=== PATIENT | male | born 1950 | race Caucasian/White ===

== ENCOUNTER 2017-03-03 18:25 | Emergency (ER) | payer MEDICARE ==
[~2017-03-03] VITALS: Ht 165.1 cm; Wt 54.4 kg
--- NOTE | 2017-03-03 23:54 | Diagnostic Imaging Report ---
ELBOW RIGHT COMPLETE Comparison: None Clinical history: Status post fall, pain Findings: Suboptimal lateral view without evidence of effusion. No acute fracture or dislocation. Impression: No acute bony abnormality Signed by: Dr Jaquelin Gomez MD on 03/03/2017 11:51 PM
--- NOTE | 2017-03-03 23:57 | Diagnostic Imaging Report ---
History: Fall, pain. Hematoma right side of the forehead. Comparison studies:None Technique: Axial images were obtained from the brain and cervical spine. Coronal and sagittal images reconstructed from the axial data. Intravenous contrast: None Findings: Head CT: Scalp/skull: No abnormalities. Extra-axial spaces: No masses. No fluid collections. Brain sulci: Mildly prominent. Ventricles: Mild compensatory dilatation. No hydrocephalus. Parenchyma: Few hypodensities in the supratentorial white matter are small vessel ischemic changes. Small chronic lacunar infarct at the right subinsular region. No masses, hemorrhage, acute or chronic cortical vascular insults. Sellar/suprasellar region: No abnormalities. Craniocervical junction: Patent foramen magnum. No Chiari one malformation. Incidental findings: Atherosclerotic calcifications in the carotid siphons Cervical spine CT: Fractures: None. Soft tissues: No gross abnormalities. Atlantoaxial articulation: Degenerative changes without an acute abnormality. Alignment: Reversal of the cervical spine lordosis centered at C3-4-5. No scoliosis. Cervicomedullary junction: No abnormalities. Patent foramen magnum. Vertebrae: No infection or neoplasm. Degenerative changes: Facet hypertrophy and uncinate process hypertrophy results in mild left foraminal narrowing at C2-3, moderate left foraminal narrowing at C3-4, mild right and moderate left foraminal narrowing at C4-5, moderate bilateral foraminal narrowing at C5-6, mild left foraminal narrowing at C6-7. Posterior disc osteophyte complexes results in mild canal stenosis at C4-5 and C5-6. Incidental findings: Atherosclerotic calcifications of the carotids bulbs. Emphysematous changes of both lung apices Impression: Head CT: 1. No acute intracranial abnormality. 2. Minimal chronic microvascular ischemic changes of the matter. Cervical spine CT: 1. No acute abnormalities. Degenerative changes as described above. 2. Cannot exclude ligament, spinal cord and or vascular abnormalities on the basis of this examination. Signed by: DR Harsh Ruiz M.D. on 03/03/2017 11:54 PM
== END 2017-03-04 01:13 | disposition home or self-care (01) ==
LOC: ER 18:25
DX: S00.83XA Contusion of other part of head, initial encounter (principal); M54.2 Cervicalgia; S50.311A Abrasion of right elbow, initial encounter; W18.39XA Other fall on same level, initial encounter; Y92.128 Other place in nursing home as the place of occurrence of the external cause; I10 Essential (primary) hypertension; J44.9 Chronic obstructive pulmonary disease, unspecified; B19.20 Unspecified viral hepatitis C without hepatic coma; F41.9 Anxiety disorder, unspecified; F32.9 Major depressive disorder, single episode, unspecified
CPT/HCPCS: 70450; 72125; 99284

== ENCOUNTER 2018-09-08 06:25 | Inpatient (IN) | payer MEDICARE ==
[~2018-09-08] VITALS: Ht 165.1 cm; Wt 54.4 kg
[2018-09-08] VITALS (15 sets, daily range): BP systolic 90–139; BP diastolic 52–94
[2018-09-08] MEDS ORDERED: SODIUM CHLORIDE 0.9% 1000ML 1,000 ML IV STA (06:28)
[2018-09-08] MEDS ORDERED: CEFEPIME 1GM/NS 0.9% 50 ML 50 ML IV STA (06:28)
[2018-09-08] MEDS ORDERED: VANCOMYCIN 1GM/NS 250 ML 250 ML IV STA (06:28)
--- OUTSIDE RECORDS SUMMARY | 2018-09-08 06:33 | XMS REPORT ---
Author Author Yoshi Fernandez [facility] eClinicalWorks Address Unknown Phone Unavailable Care Team Providers Care Boarder Hand Name Role Phone Yoshi Fernandez CP Unavailable Allergies, Adverse Reactions, Alerts Substance Reaction Event Type NSAID rash Drug Allergy Encounters Encounter Location Date Follow-up for mutiple problems Yoshi Fernandez MD May 20, 2015 Problems Problem Type Condition ICD-9 Code Onset Dates Condition Status Problem Chronic pain G89.29 Active Problem HTN (hypertension) I10 Active Problem Depression with anxiety F41.8 Active Problem Peripheral neuropathy G62.9 Active Problem Foot drop M21.379 Active Problem Chronic hypoxemic respiratory failure J96.11 Active Problem Respiratory failure J96.90 Active Problem COPD (chronic obstructive pulmonary disease) J44.9 Active Problem Hepatitis C carrier Z22.52 Active Problem History of tracheostomy Z98.89 Active Assessment Chronic pain G89.29 Active Assessment COPD (chronic obstructive pulmonary disease) J44.9 Active Assessment History of tracheostomy Z98.89 Active Assessment Chronic hypoxemic respiratory failure J96.11 Active Assessment Peripheral neuropathy G62.9 Active Problem Pulmonary embolism I26.99 Active Medications Medication Code System Code Instructions Start Date End Date Status Dosage Mucinex [facility] [address]-68 180 mg by mouth twice a day (bid) Active [address] [facility] [address]-77 20 mg by mouth once a day Active 1/[address] [facility] [address]-34 20 mg by mouth Once a day for edema. Active [address] [facility] [address]-79 10 MG Orally daily Mar 12, 2015 Active [address] [facility] [address] Orally Active Unknown DiphenhydrAMINE HCl [facility] [address]-84 25 MG Orally every 6 hrs Active 1 tablet as needed DuoNeb [facility] [address]-90 0.5-2.5 (3) MG/3ML Inhalation Four times a day Active 3 [address]er[address] S[address] HFA [facility] [address]-75 108 (90 Base) MCG/ACT Inhalation every 4 hrs Active 2 puffs as needed Lactulose [facility] [address]-18 10 GM/15ML Orally once a day Active [address] [facility] [address]-89 750 MG Orally Once a day Apr 12, 2015 Active 1 tablet Trypsin-Ailey Oil-[place]ley Balsam [facility] [address]-10 Externally once a day Active 1 application to affected area Psyllium Husk [facility] [address]-77 by mouth with every meal Active one packet Dulera [facility] [address]-41 200-5 MCG/ACT Inhalation Twice a day May 20, 2015 Active [address] [facility] [address]-15 1 % Externally Twice a day Active 1 application to affected area Tiotropium [place] Monohydrate [facility] [address]-21 18 MCG by mouth Once a day with meals for constipation. Active [address] [facility] [address]-92 20 mg by mouth Once a day Active [address] [facility] [address]-03 300 MG by mouth once at bedtime Active [address] [facility] [address]-46 100 UNIT/ML Subcutaneous Active Unknown Gabapentin [facility] [address]-37 600 MG by mouth every 8 hours Active [address] [facility] [address]-60 100 mg by mouth Once at bedtime. Active [address] [facility] [address]-91 5 MG by mouth twice a day (bid) Active 1 tablet Hydrocodone-Acetaminophen [facility] [address]-48 10-325 MG Orally every 6 hrs Active 1 tablet as needed Symbicort [facility] [address]-84 160-4.5 MCG/ACT Inhalation Twice a day Apr 12, 2015 Active [address] [facility] [address]-54 1 MG by mouth three times a day (tid) as needed (prn) Active [address] [facility] [address]-55 2.5 % Externally Twice a day May 20, 2015 September 17, 2015 Active 1 drop to affected area Mupirocin [facility] [address]-92 2 % Externally once a day Active 1 application to affected area Ondansetron HCl [facility] [address]-55 4 mg by mouth every 4 hours for nausea Active 1 tablet Docusate Sodium [facility] [address]-55 50 MG/15ML Orally Once a day Active 15 ml as needed Social History Social History Element Qualifiers Date Reported Do you take aspirin or a blood thinner drug? . YES,Harini Gutierrez 03/12/2015 2:25:18 PM > May 20, 2015 Tobacco Use: . Are you a: former smoker, When did you quit? 12/05/2014, For how many years have you smoked? more than 6 years May 20, 2015 Marital Status: . MarriedHarini Gutierrez 03/12/2015 2:25:23 PM > May 20, 2015 Caffeine intake? . Status: Yes, What type: Coffee, Tea, Soft Drinks May 20, 2015 Do you exercise? . Answer: No May 20, 2015 Family history Qualifier Description Comment Date Reported Maternal Grandmother Comment not available May 20, 2015 Paternal Grandmother Comment not available May 20, 2015 Siblings Comment not available May 20, 2015 Maternal Grandfather Comment not available May 20, 2015 Father high blood pressure, asthma May 20, 2015 Mother high blood pressure, asthma May 20, 2015 Paternal Grandfather Comment not available May 20, 2015 Other: Comment not available May 20, 2015 Vital Signs Date/Time: May 20, 2015 Weight 135.8 lbs Height 65 in Temperature 98.5 F Cardiac Monitoring Heart Rate 107 /min Blood Pressure Diastolic 79 mm Hg Blood Pressure Systolic 131 mm Hg Respiratory Rate 18 /min Summary Purpose eClinicalWorks Submission
--- OUTSIDE RECORDS SUMMARY | 2018-09-08 06:33 | XMS REPORT | Summary of Care ---
Author Author [facility] Organization [facility] Address Unknown Phone Unavailable Encounter [facility](JOYCE) [id number] Date(s): 02/05/17 - 02/15/17 [facility] [address] [place] [address]- Discharge Disposition: [facility] Care Facility Attending Physician: Eunice Castillo MD Admitting Physician: Eunice Castillo MD Vital Signs 1 2 3 Most recent to oldest [Reference Range]: 177.8 cm (02/06/17 11:03 AM) 177.8 cm (02/06/17 9:25 AM) 177.8 cm (02/06/17 7:02 AM) Height 45.1 kg (02/12/17 5:18 AM) 43.455 kg (02/11/17 5:00 AM) 46.591 kg (02/10/17 5:00 AM) Current Weight 98.3 DegF (02/15/17 4:03 PM) 98.8 DegF (02/15/17 11:52 AM) 97.7 DegF (02/15/17 7:42 AM) Temperature Oral [96.4-99.1 DegF] 118/69 mmHg (02/15/17 4:03 PM) 120/64 mmHg (02/15/17 11:52 AM) 93/58 mmHg (02/15/17 7:42 AM) Blood Pressure [90-140/60-90 mmHg] 20 BRMIN (02/15/17 4:03 PM) 18 BRMIN (02/15/17 11:52 AM) 16 BRMIN (02/15/17 8:56 AM) Respiratory Rate [14-20 BRMIN] 107 bpm *HI* (02/15/17 4:03 PM) 83 bpm (02/15/17 11:52 AM) 79 bpm (02/15/17 7:42 AM) Peripheral Pulse Rate [60-100 bpm] 45 kg (02/05/17 8:14 PM) Weight 14.23 m2 (02/05/17 8:14 PM) Body Mass Index Problem List Condition Effective Dates Status Health Status Informant Anxiety(Confirmed) Resolved Asthma(Confirmed) Active COPD(Confirmed) Active Hepatitis Active C(Confirmed) HLD Active (hyperlipidemia)(Con firmed) Hypertension(Confirm Active ed) Pneumonia(Confirmed) Active Respiratory Resolved distress(Confirmed) Severe Active Chronic ; protein-calorie malnutrition(Confirm ed) Smoker(Confirmed) Active Allergies, Adverse Reactions, Alerts Substance Reaction Severity Status Vioxx Active NSAIDs Active chlorhexidine containing Active compounds Medications acetaminophen 650 mg, 2 tab, Route: PO, Drug form: TAB, Q4H, Dosing Weight 45, kg, PRN For Tem p > 100.4 F, Start date: 02/05/17 22:21:00 [employer], Duration: 30 day, Stop date: 03/07/17 22:20:00 [employer] Notes: Do not exceed 4 gm/day. (Same as: Tylenol) Start Date: 02/05/17 Stop Date: 02/15/17 Status: Discontinued albuterol 0.083% inhalation solution 2.5 mg, 3.01 mL, Route: NEB, Drug form: SOLN, RTID, Dosing Weight 45, kg, Start date: 02/07/17 20:00:00 [employer], Duration: 30 day, Stop date: 03/09/17 14:00:00 [employer] Notes: SEE RT DOCUMENTATION (Same as: Ania) Start Date: 02/07/17 Stop Date: 02/15/17 Status: Discontinued albuterol 0.083% inhalation solution 2.5 mg=3 mL, NEB, TID, 0 Refill(s) Start Date: 02/05/17 Status: Ordered albuterol-ipratropium 2.5-0.5 mg inhalation solution 3 ml, Route: NEB, Drug Form: SOLN, Dosing Weight 45, kg, RQ4H, PRN Wheezing, Sta rt date: 02/05/17 22:21:00 [employer], Duration: 30 day, Stop date: 03/07/17 22:20:[address] Notes: (Same as: Huma) Start Date: 02/05/17 Stop Date: 02/15/17 Status: Discontinued albuterol-ipratropium 2.5-0.5 mg inhalation solution 3 mL, Route: NEB, Dosing Weight 45, kg, ONCE, STAT, Start date: 02/05/17 20:34:0 0 [employer], Stop date: 02/05/17 20:34:00 [employer] Start Date: 02/05/17 Stop Date: 02/05/17 Status: Completed amLODIPine 10 mg, 2 tab, Route: PO, Drug form: TAB, Daily, Dosing Weight 45, kg, Start date : 02/08/17 9:00:00 [employer], Duration: 30 day, Stop date: 03/10/17 8:59:00 [employer] Notes: (Same as: Norvasc) Start Date: 02/08/17 Stop Date: 02/15/17 Status: Discontinued amLODIPine 10 mg oral tablet 10 mg=1 tab, PO, Daily, 0 Refill(s) Start Date: 02/05/17 Status: Ordered Ativan 0.25 mg, 0.5 tab, Route: PO, Drug form: TAB, BID, Dosing Weight 45, kg, PRN Anxi ety, Start date: 02/11/17 12:22:00 [employer], Duration: 30 day, Stop date: 03/13/17 12 :21:00 [employer] Notes: (Same as: Ativan) Start Date: 02/11/17 Stop Date: 02/15/17 Status: Discontinued azithromycin 500 mg, 2 tab, Route: PO, Drug form: TAB, [id number], Dosing Weight 45, kg, Start d ate: 02/05/17 23:00:00 [employer], Duration: 5 day, Stop date: 02/10/17 22:59:00 [employer], A BX Indication: Non-PNA Respiratory Tract Infection Notes: Take 1 hour before or 2 hours after meals.(Same As: Zithromax) Start Date: 02/05/17 Stop Date: 02/10/17 Status: Completed Breo Ellipta 100 mcg-25 mcg inhalation powder 1 puff, Route: INHALATION, Drug Form: PWDR, Dosing Weight 45, kg, Daily, Start d ate: 02/08/17 9:00:00 [employer], Duration: 30 day, Stop date: 03/10/17 8:59:00 [employer] Start Date: 02/08/17 Stop Date: 02/08/17 Status: Discontinued Breo Ellipta 100 mcg-25 mcg inhalation powder 1 puff, INHALATION, Daily, 0 Refill(s) Start Date: 02/05/17 Status: Ordered budesonide 0.5 mg, 2 mL, Route: NEB, Drug form: SUSP, RBID, Dosing Weight 45, kg, Start chantel e: 02/05/17 22:36:00 [employer], Duration: 30 day, Stop date: 03/07/17 22:35:00 [employer] Notes: (Same As: Pulmicort) Start Date: 02/05/17 Stop Date: 02/15/17 Status: Discontinued budesonide 0.5 mg/2 mL inhalation suspension 0.5 mg=2 mL, NEB, RBID, 0 Refill(s) Start Date: 02/15/17 Status: Ordered calcium carbonate 500 mg (200 mg elemental calcium) oral tablet 1,000 mg, 2 tab, Route: PO, Drug form: CHEWTAB, PRN, Dosing Weight 45, kg, PRN A bnormal Lab Result, FOR ICU USE ONLY, Start date: 02/05/17 22:21:00 [employer], Duratio n: 30 day, Stop date: 03/07/17 22:20:00 [employer] Notes: (Same As: Tums)Calcium Carbonate 500 kf=730 mg elemental calcium Dose=_ mg calcium carbonate ( mg elemental calcium) Start Date: 02/05/17 Stop Date: 02/09/17 Status: Discontinued calcium carbonate 500 mg (200 mg elemental calcium) oral tablet 500 mg, 1 tab, Route: PO, Drug form: CHEWTAB, PRN, Dosing Weight 45, kg, PRN Abn ormal Lab Result, FOR ICU USE ONLY, Start date: 02/05/17 22:21:00 [employer], Duration: 30 day, Stop date: 03/07/17 22:20:00 [employer] Notes: (Same As: Tums)Calcium Carbonate 500 ob=650 mg elemental calcium Dose=_ mg calcium carbonate ( mg elemental calcium) Start Date: 02/05/17 Stop Date: 02/09/17 Status: Discontinued calcium gluconate 1 gm, 50 mL, Route: IVPB, Drug form: INJ, PRN, Dosing Weight 45, kg, PRN Abnorma l Lab Result, Start date: 02/05/17 22:21:00 [employer], Duration: 30 day, Stop date: 22:20:00 [employer], FOR ICU USE ONLY Notes: WASTE: F/P - Sink; E - Municipal Trash Bin Start Date: 02/05/17 Stop Date: 02/09/17 Status: Discontinued cefepime + sterile water 10 mL 1 gm, Route: IV, ONCE, Dosing Weight 45, kg, (CrCl >/=50 ml/min), Start date: 02/05/17 21:57:00 [employer], Stop date: 02/05/17 21:57:00 [employer], ABX Indication: Pneumonia Notes: (Same As: Maxipime) MEDICATION WASTE Product Size: 1000 mgProduc t Wasted: ___ mg Start Date: 02/05/17 Stop Date: 02/06/17 Status: Completed cefTRIAXone + sterile water 10 mL 1 gm, Route: IV, [id number], Dosing Weight 45, kg, Start date: 02/08/17 20:00:00 CS T, Duration: 30 day, Stop date: 03/10/17 19:59:00 [employer], ABX Indication: Pneumonia Notes: (Same As: Rocephin).Use with 100 mL NS and infuse over 30 min MEDICA TION WASTE Product Size: 1000 mgProduct Wasted: ___ mg Start Date: 02/08/17 Stop Date: 02/15/17 Status: Discontinued donepezil 5 mg, 1 tab, Route: PO, Drug form: TAB, Bedtime, Dosing Weight 45, kg, Start chantel e: 02/07/17 21:00:00 [employer], Duration: 30 day, Stop date: 03/09/17 20:59:00 [employer] Notes: (Same as: Aricept) Start Date: 02/07/17 Stop Date: 02/15/17 Status: Discontinued donepezil 5 mg oral tablet 5 mg=1 tab, PO, Bedtime, 0 Refill(s) Start Date: 02/05/17 Status: Ordered DuoNeb inhalation solution 9 mL, Route: NEB, Drug Form: SOLN, Dosing Weight 45, kg, ONCE, PRN Respiratory P rotocol, Start date: 02/05/17 21:15:00 [employer] Notes: (Same as: Duoneb) Start Date: 02/05/17 Stop Date: 02/05/17 Status: Completed enoxaparin 40 mg, 0.4 mL, Route: SUB-Q, Drug form: INJ, [id number], Dosing Weight 45, kg, Sta rt date: 02/05/17 23:00:00 [employer], Duration: 30 day, Stop date: 03/07/17 22:59:[address] Notes: (Same as: Lovenox) Start Date: 02/05/17 Stop Date: 02/15/17 Status: Discontinued famotidine 20 mg, 2 mL, Route: IVP, Drug form: INJ, Daily, Dosing Weight 45, kg, Start date : 02/06/17 9:00:00 [employer], Duration: 30 day, Stop date: 03/07/17 9:00:00 [employer] Notes: (Same as: Pepcid)Can be dilute in 5-10cc NS IVP: Slow IV push over at le ast 2 minutes. Start Date: 02/06/17 Stop Date: 02/08/17 Status: Discontinued famotidine 20 mg oral tablet 20 mg, 1 tab, Route: PO, Drug form: TAB, Daily, Dosing Weight 45, kg, Start date : 02/09/17 9:00:00 [employer], Duration: 30 day, Stop date: 03/11/17 8:59:00 [employer] Notes: (Same as: Pepcid) Start Date: 02/09/17 Stop Date: 02/15/17 Status: Discontinued famotidine 20 mg oral tablet 20 mg=1 tab, PO, Daily, 0 Refill(s) Start Date: 02/15/17 Status: Ordered fentaNYL 1250 microgram in NS 250 mL (Titrate.) IV 1,250 microgram 1,250 microgram, 250 mL, Rate: Titrate, Start Dose: 50 microgram/hr, Titration: 25 microgram/hour every 15 minutes, Goal(s): rass -2, Max Dose: 300 microgram/hr , Route: IV, Dosing Weight 45 kg, Total Volume: 250, Start date: 02/05/17 22:41: 00 [employer], Dur... Notes: Concentration: 5 microgram / ml Start Date: 02/05/17 Stop Date: 02/10/17 Status: Discontinued Lactated Ringers (Bolus) IV 1,000 mL, 1,000 ml/hr, Infuse Over: 1 hr, Route: IV, 1,000, Drug form: INJ, ONCE , Priority: STAT, Dosing Weight 45 kg, Start date: 02/06/17 0:24:00 [employer], Stop da te: 02/06/17 0:24:00 [employer] Start Date: 02/06/17 Stop Date: 02/06/17 Status: Completed Lactated Ringers (Bolus) IV 1,000 mL, 1,000 ml/hr, Infuse Over: 1 hr, Route: IV, 1,000, Drug form: INJ, ONCE , Priority: STAT, Dosing Weight 45 kg, Start date: 02/06/17 2:27:00 [employer], Stop da te: 02/06/17 2:27:00 [employer] Start Date: 02/06/17 Stop Date: 02/06/17 Status: Completed LORazepam 1 mg, 1 tab, Route: PO, Drug form: TAB, BID, Dosing Weight 45, kg, Start date: 04/09/16 17:42:00 [employer], Duration: 30 day, Stop date: 03/09/17 20:00:00 [employer] Notes: (Same as: Ativan) Start Date: 02/07/17 Stop Date: 02/15/17 Status: Discontinued LORazepam 2 mg oral tablet 2 mg=1 tab, PO, BID, 0 Refill(s) Start Date: 02/05/17 Status: Ordered losartan 50 mg, 1 tab, Route: PO, Drug form: TAB, Daily, Dosing Weight 45, kg, Start date : 02/08/17 9:00:00 [employer], Duration: 30 day, Stop date: 03/10/17 8:59:00 [employer] Notes: (Same as: Cozaar) Start Date: 02/08/17 Stop Date: 02/15/17 Status: Discontinued losartan 50 mg oral tablet 50 mg=1 tab, PO, Daily, 0 Refill(s) Start Date: 02/05/17 Status: Ordered magnesium oxide 800 mg, 2 tab, Route: PO, Drug form: TAB, PRN, Dosing Weight 45, kg, PRN Abnorma l Lab Result, FOR ICU USE ONLY, Start date: 02/05/17 22:21:00 [employer], Duration: 30 day, Stop date: 03/07/17 22:20:00 [employer] Notes: (Same as: Mag-Ox 400)Magnesium oxide [id number] elemental magnesiumDose= ____mg magnesium oxide (___mg elemental magnesium) Start Date: 02/05/17 Stop Date: 02/09/17 Status: Discontinued magnesium sulfate 2 gm, Route: IVPB, Drug form: INJ, ONCE, Dosing Weight 45, kg, Total dose=2 gm, Start date: 02/05/17 21:14:00 [employer], Stop date: 02/05/17 21:14:00 [employer]ERSON Start Date: 02/05/17 Stop Date: 02/05/17 Status: Completed magnesium sulfate 2 gm, 50 mL, Route: IVPB, Drug form: INJ, PRN, Dosing Weight 45, kg, PRN Abnorma l Lab Result, Start date: 02/05/17 22:21:00 [employer], Duration: 30 day, Stop date: 22:20:00 [employer], FOR ICU USE ONLY Notes: WASTE: F/P - Sink; E - Municipal Trash Bin Start Date: 02/05/17 Stop Date: 02/09/17 Status: Discontinued mupirocin topical 1 appl, Route: NASAL, Q12H, Drug form: OINT, Start date: 02/06/17 9:00:00 [employer], D uration: 5 day, Stop date: 02/11/17 8:59:00 [employer], MRSA Decolonization Start Date: 02/06/17 Stop Date: 02/11/17 Status: Completed Soudan 10/325 oral tablet 1 tab, Route: PO, Drug Form: TAB, Dosing Weight 45, kg, TID, Start date: 7 17:42:00 [employer], Duration: 30 day, Stop date: 03/09/17 22:00:00 [employer] Notes: Do not exceed 4gm/day of acetaminophen. (Same as: Soudan 325/10) Start Date: 02/07/17 Stop Date: 02/15/17 Status: Discontinued Soudan 10/325 oral tablet 1 tab, PO, TID, 0 Refill(s) Start Date: 02/05/17 Status: Ordered norepinephrine 8 mg in 250 mL (Titrate.) IV 8 mg 8 mg, 250 mL, Rate: Titrate, Start Dose: 5 microgram/min, Titration: 2 microgram /min every 2-5 minutes, Goal(s): MAP >=60 mmHg, Max Dose: 70 microgram/min, Route: IV, Dosing Weight 45 kg, Total Volume: 250, Start date: 02/06/17 4:12:00 [employer], Duration:... Notes: Same as: Levophed. Administer by either central venous catheter or periph erally-inserted central catheter (PICC) line.Concentration: 0.032 mg / mL Start Date: 02/06/17 Stop Date: 02/10/17 Status: Discontinued nystatin topical 100,000 units/g powder 1 appl, Route: TOP, PRN, Drug form: PWDR, PRN For Fungal Prophylaxis, Start date : 02/05/17 22:21:00 [employer], Duration: 30 day, Stop date: 03/07/17 22:20:00 [employer] Notes: (Same as:Mycostatin, Nilstat) For external use only. Start Date: 02/05/17 Stop Date: 02/15/17 Status: Discontinued ocular lubricant 1 appl, Route: BOTH EYES, Q6H, Drug form: OINT, Start date: 02/06/17 0:00:00 [employer] , Duration: 30 day, Stop date: 03/07/17 23:59:00 [employer] Notes: (Same as: Lacri-Lube, Duratears Naturale, Artificial Tears, and Tears Aga in ) Start Date: 02/06/17 Stop Date: 02/06/17 Status: Discontinued Please have patient bring home med" Ellipta 100 mcg/25 mcg Please have patient bring home med" Ellipta 100 mcg/25 mcg, 1, Drug form: MISC, Route: MISC, Daily, 02/08/17 9:00:00 [employer], Duration: 30 day, Stop date: 03/09/17 9:00:00 [employer] Start Date: 02/08/17 Stop Date: 02/08/17 Status: Discontinued potassium chloride 20 mEq, 100 mL, Route: IVPB, Drug form: INJ, PRN, Dosing Weight 45, kg, PRN Abno rmal Lab Result, Via central line, Start date: 02/05/17 22:21:00 [employer], Duration: 30 day, Stop date: 03/07/17 22:20:00 [employer], FOR ICU USE ONLY Notes: (Same as: KCL) Infuse no faster than 10 mEq/hr if given peripherally. Start Date: 02/05/17 Stop Date: 02/09/17 Status: Discontinued potassium chloride 10 mEq, 100 mL, Route: IVPB, Drug form: INJ, PRN, Dosing Weight 45, kg, PRN Abno rmal Lab Result, Via peripheral line, Start date: 02/05/17 22:21:00 [employer], Duratio n: 30 day, Stop date: 03/07/17 22:20:00 [employer], FOR ICU USE ONLY Notes: Infuse at a rate of 10 mEq/hr.(Same as: KCL) Start Date: 02/05/17 Stop Date: 02/09/17 Status: Discontinued potassium chloride 20 mEq, 1 tab, Route: PO, Drug form: ERTAB, PRN, Dosing Weight 45, kg, PRN Abnor mal Lab Result, Start date: 02/05/17 22:21:00 [employer], Duration: 30 day, Stop date: 03/07/17 22:20:00 [employer], FOR ICU USE ONLY Notes: (Same as: K-Dur 20)"Do Not Crush" With food and full glass of water Start Date: 02/05/17 Stop Date: 02/09/17 Status: Discontinued potassium chloride 20 mEq, 15 mL, Route: NJ, Drug form: LIQ, PRN, Dosing Weight 45, kg, PRN Abnorma l Lab Result, Start date: 02/05/17 22:21:00 [employer], Duration: 30 day, Stop date: 22:20:00 [employer], FOR ICU USE ONLY Notes: (Same as: Potassium Chloride) Start Date: 02/05/17 Stop Date: 02/09/17 Status: Discontinued potassium phosphate + Sodium Chloride 0.9% IV 250 mL 30 mmol, 10 mL, Route: IVPB, PRN, Dosing Weight 45, kg, PRN Abnormal Lab Result, Start date: 02/05/17 22:21:00 [employer], Duration: 30 day, Stop date: 03/07/17 22:20: 00 [employer], FOR ICU USE ONLY Notes: (Same as: K Phosphate.) 1 mMol phoshate has 1.47 mEq potassium Infuse o jesús 4 hours Start Date: 02/05/17 Stop Date: 02/09/17 Status: Discontinued potassium phosphate + Sodium Chloride 0.9% IV 250 mL 15 mmol, 5 mL, Route: IVPB, PRN, Dosing Weight 45, kg, PRN Abnormal Lab Result, Start date: 02/05/17 22:21:00 [employer], Duration: 30 day, Stop date: 03/07/17 22:20:0 0 [employer], FOR ICU USE ONLY Notes: (Same as: K Phosphate.) 1 mMol phoshate has 1.47 mEq potassium Infuse o jesús 4 hours Start Date: 02/05/17 Stop Date: 02/09/17 Status: Discontinued potassium phosphate + Sodium Chloride 0.9% IV 250 mL 45 mmol, 15 mL, Route: IVPB, PRN, Dosing Weight 45, kg, PRN Abnormal Lab Result, Start date: 02/05/17 22:21:00 [employer], Duration: 30 day, Stop date: 03/07/17 22:20: 00 [employer], FOR ICU USE ONLY Notes: (Same as: K Phosphate.) 1 mMol phoshate has 1.47 mEq potassium Infuse o jesús 4 hours Start Date: 02/05/17 Stop Date: 02/09/17 Status: Discontinued potassium phosphate-sodium phosphate 250 mg-280 mg-160 mg oral powder for recons titution 2 pkt, Route: PO, Drug Form: PDR/REC, Dosing Weight 45, kg, PRN, PRN Abnormal La b Result, FOR ICU USE ONLY, Start date: 02/05/17 22:21:00 [employer], Duration: 30 day, Stop date: 03/07/17 22:20:00 [employer] Notes: (Same as: Phos-NaK) Each 1.5 gm pkt has 250mg phosphorous. Mix w/2.5oz w ater and stir. Start Date: 02/05/17 Stop Date: 02/09/17 Status: Discontinued predniSONE 20 mg oral tablet 60 mg=3 tab, PO, Daily, Take 3 tablets for 60 mg dose, X 5 day, # 15 tab, 0 Refi ll(s), Pharmacy: [id number] Start Date: 02/15/17 Stop Date: 02/20/17 Status: Ordered predniSONE 20 mg oral tablet 10 mg=0.5 tab, PO, Daily, 0 Refill(s) Start Date: 02/05/17 Status: Ordered propofol 10 mg/mL (Titrate.) IV 1,000 mg 1,000 mg, 100 mL, Rate: Titrate, Start Dose: 5 microgram/kg/min, Titration: 5 mi crogram/kg/min every 15 minutes, Goal(s): RASS -1 to -2, Max Dose: 50 mcg/kg/min , Route: IV, Dosing Weight 45 kg, Total Volume: 100, Start date: 02/05/17 22:33: 00 [employer], Dur... Notes: If Diprivan - change bottle & tubing every 12 hrPer state nursing law propofol can only be given by a nurse if patient is intubated or being intubated (unless the nurse is a ELEVATOR TECHNICIAN). Same as: Diprivan Start Date: 02/05/17 Stop Date: 02/06/17 Status: Discontinued Remeron 15 mg, 1 tab, Route: PO, Drug form: TAB, Bedtime, Dosing Weight 45, kg, Start da te: 02/07/17 21:00:00 [employer], Duration: 30 day, Stop date: 03/09/17 20:59:00 [employer]ERSON Notes: (Same as:Remeron) Start Date: 02/07/17 Stop Date: 02/15/17 Status: Discontinued Remeron 15 mg oral tablet 15 mg=1 tab, PO, Bedtime, 0 Refill(s) Start Date: 02/05/17 Status: Ordered Saline Flush 0.9% 10 ml, Route: IVP, Drug Form: INJ, Dosing Weight 45, kg, PRN, PRN Line Flush, St art date: 02/05/17 22:21:00 [employer], Duration: 30 day, Stop date: 03/07/17 22:20:00 [employer]ERSON Notes: (Same as: BD Posiflush) Start Date: 02/05/17 Stop Date: 02/15/17 Status: Discontinued Saline Flush 0.9% 10 ml, Route: IVP, Drug Form: INJ, Dosing Weight 45, kg, Q12H, Start date: 02/06 9:00:00 [employer], Duration: 30 day, Stop date: 03/08/17 8:59:00 [employer] SAL[employer]ERSON Notes: (Same as: BD Posiflush) Start Date: 02/06/17 Stop Date: 02/15/17 Status: Discontinued Saline Flush 0.9% 10 mL, Route: IVP, Drug Form: INJ, Dosing Weight 45, kg, PRN, PRN Line Flush, St art date: 02/05/17 20:33:00 [employer], Duration: 30 day, Stop date: 03/07/17 20:32:00 [employer]ERSON Notes: (Same as: BD Posiflush) Start Date: 02/05/17 Stop Date: 02/09/17 Status: Discontinued sertraline 200 mg, 2 tab, Route: PO, Drug form: TAB, Daily, Dosing Weight 45, kg, Start chantel e: 02/08/17 9:00:00 [employer], Duration: 30 day, Stop date: 03/10/17 8:59:00 [employer]ERSON Notes: (Same as: Zoloft) Start Date: 02/08/17 Stop Date: 02/15/17 Status: Discontinued sertraline 100 mg oral tablet 200 mg=2 tab, PO, Daily, 0 Refill(s) Start Date: 02/05/17 Status: Ordered Sodium Chloride 0.9% (Bolus) IV 1,000 mL, 2,000 ml/hr, Infuse Over: 0.5 hr, Route: IV, 1,000, Drug form: INJ, ON CE, Priority: STAT, Dosing Weight 45 kg, Start date: 02/05/17 21:58:00 [employer], Stop date: 02/05/17 21:58:00 [employer]ERSON Start Date: 02/05/17 Stop Date: 02/06/17 Status: Completed Sodium Chloride 0.9% (Bolus) IV 1,000 mL, 1,000 ml/hr, Infuse Over: 1 hr, Route: IV, 1,000, Drug form: INJ, ONCE , Priority: STAT, Dosing Weight 45 kg, Start date: 02/06/17 2:49:00 [employer], Stop da te: 02/06/17 2:49:00 [employer] SAL[employer]ERSON Start Date: 02/06/17 Stop Date: 02/06/17 Status: Completed sodium phosphate + Dextrose 5% in Water IV 250 mL 15 mmol, 5 mL, Route: IVPB, PRN, Dosing Weight 45, kg, PRN Abnormal Lab Result, Start date: 02/05/17 22:21:00 [employer], Duration: 30 day, Stop date: 03/07/17 22:20:0 0 [employer]ERSON, FOR ICU USE ONLY Start Date: 02/05/17 Stop Date: 02/09/17 Status: Discontinued sodium phosphate + Dextrose 5% in Water IV 250 mL 45 mmol, 15 mL, Route: IVPB, PRN, Dosing Weight 45, kg, PRN Abnormal Lab Result, Start date: 02/05/17 22:21:00 [employer], Duration: 30 day, Stop date: 03/07/17 22:20: 00 [employer] PL[employer] SAL[employer]ERSON, FOR ICU USE ONLY Start Date: 02/05/17 Stop Date: 02/09/17 Status: Discontinued sodium phosphate + Dextrose 5% in Water IV 250 mL 30 mmol, 10 mL, Route: IVPB, PRN, Dosing Weight 45, kg, PRN Abnormal Lab Result, Start date: 02/05/17 22:21:00 [employer], Duration: 30 day, Stop date: 03/07/17 22:20: 00 [employer] SAL[employer]ERSON, FOR ICU USE ONLY Start Date: 02/05/17 Stop Date: 02/09/17 Status: Discontinued Solu-MEDROL 40 mg, 1 mL, Route: IVP, Drug form: INJ, Q12H, Dosing Weight 45, kg, Start date: 02/06/17 9:00:00 [employer], Duration: 30 day, Stop date: 03/08/17 8:59:00 [employer] SAL[employer]ERSON Notes: (Same as:Solu-MEDROL, A-Methapred) Start Date: 02/06/17 Stop Date: 02/15/17 Status: Discontinued Solu-MEDROL 125 mg, Route: IVP, ONCE, Dosing Weight 45, kg, Priority: STAT, Start date: 01/20 10/05 21:15:00 [employer], Stop date: 02/05/17 21:15:00 [employer] SAL[employer]ERSON Start Date: 02/05/17 Stop Date: 02/05/17 Status: Completed trazodone 300 mg, 6 tab, Route: PO, Drug form: TAB, Bedtime, Dosing Weight 45, kg, Start d ate: 02/07/17 21:00:00 [employer], Duration: 30 day, Stop date: 03/09/17 20:59:00 [employer] SAL[employer]ERSON Notes: (Same As: Desyrel) Start Date: 02/07/17 Stop Date: 02/15/17 Status: Discontinued trazodone 150 mg oral tablet 300 mg=2 tab, PO, Bedtime, 0 Refill(s) Start Date: 02/05/17 Status: Ordered Unasyn 3 gm, Route: IVPB, ONCE, Dosing Weight 45, kg, Start date: 02/05/17 21:56:00 [employer] , Stop date: 02/05/17 21:56:00 [employer] SAL[employer]ERSON Start Date: 02/05/17 Stop Date: 02/05/17 Status: Discontinued vancomycin + Sodium Chloride 0.9% IV 250 mL 1,000 mg, Route: IVPB, ONCE, Dosing Weight 45, kg, Start date: 02/05/17 21:57:00 [employer], Stop date: 02/05/17 21:57:00 [employer], ABX Indication: Pneumonia Notes: TIME CRITICAL MEDICATION(Same As: Vancocin)Infusion rate< 1000 mg: infuse over 1 [id number] - 1500 mg: infuse over 1.5 [id number] - 2000 mg: infuse over 2 hours> 2001 mg: infuse over 2.5 hours MEDICATION WASTE Product Size: 1000 mgProduct Wasted: ___ mg Start Date: 02/05/17 Stop Date: 02/06/17 Status: Completed Versed 50 mg in NS 50 mL (Titrate.) IV 50 mg 50 mg, 50 mL, Rate: Titrate, Start Dose: 1 mg/hr, Titration: Rebolus 1 mg IV and /or Titrate infusion by 1 mg/hour every 30 minutes, Goal(s): rass -2, Max Dose: 10 mg/hr, Route: IV, Dosing Weight 45 kg, Total Volume: 50, Start date: 02/05/17 22:42:00 C... Notes: (Same as: Versed) Start Date: 02/05/17 Stop Date: 02/10/17 Status: Discontinued Results ELECTROLYTES 1 2 3 Most recent to oldest [Reference Range]: 139 mEq/L (02/14/17 11:56 AM) 137 mEq/L (02/11/17 8:32 AM) 138 mEq/L (02/10/17 7:05 AM) Sodium Lvl [135-145 mEq/L] 4.4 mEq/L (02/14/17 11:56 AM) 4.4 mEq/L (02/11/17 8:32 AM) 4.4 mEq/L (02/10/17 7:05 AM) Potassium Lvl [3.5-5.1 mEq/L] 98 mEq/L (02/14/17 11:56 AM) 92 mEq/L *LOW* (02/11/17 8:32 AM) 93 mEq/L *LOW* (02/10/17 7:05 AM) Chloride Lvl [95-109 mEq/L] 34 mEq/L *HI* (02/14/17 11:56 AM) 39 mEq/L *HI* (02/11/17 8:32 AM) 38 mEq/L *HI* (02/10/17 7:05 AM) CO2 [24-32 mEq/L] 11.4 mEq/L (02/14/17 11:56 AM) 10.4 mEq/L (02/11/17 8:32 AM) 11.4 mEq/L (02/10/17 7:05 AM) AGAP [10.0-20.0 mEq/L] CHEM PANEL 1 2 3 Most recent to oldest [Reference Range]: 0.64 mg/dL (02/14/17 11:56 AM) 0.62 mg/dL (02/11/17 8:32 AM) 0.62 mg/dL (02/10/17 7:05 AM) Creatinine Lvl [0.50-1.40 mg/dL] 102 mL/min/1.73m2 1 *NA* (02/14/17 11:56 AM) 103 mL/min/1.73m2 2 *NA* (02/11/17 8:32 AM) 104 mL/min/1.73m2 3 *NA* (02/10/17 7:05 AM) eGFR 28 mg/dL *HI* (02/14/17 11:56 AM) 20 mg/dL (02/11/17 8:32 AM) 18 mg/dL (02/10/17 7:05 AM) BUN [7-22 mg/dL] 44 *HI* (02/14/17 11:56 AM) 36 *HI* (02/07/17 5:58 AM) 18 (02/05/17 8:43 PM) B/C Ratio [6-25] 113 mg/dL *HI* (02/14/17 11:56 AM) 96 mg/dL (02/11/17 8:32 AM) 102 mg/dL *HI* (02/10/17 7:05 AM) Glucose Lvl [70-99 mg/dL] 6.2 g/dL *LOW* (02/14/17 11:56 AM) 5.9 g/dL *LOW* (02/07/17 5:58 AM) 8.1 g/dL (02/05/17 8:43 PM) Total Protein [6.4-8.4 g/dL] 2.9 g/dL *LOW* (02/14/17 11:56 AM) 2.6 g/dL *LOW* (02/07/17 5:58 AM) 3.8 g/dL (02/05/17 8:43 PM) Albumin Lvl [3.5-5.0 g/dL] 3.3 g/dL (02/14/17 11:56 AM) 3.3 g/dL (02/07/17 5:58 AM) 4.3 g/dL *HI* (02/05/17 8:43 PM) Globulin [2.7-4.2 g/dL] 0.9 (02/14/17 11:56 AM) 0.8 (02/07/17 5:58 AM) 0.9 (02/05/17 8:43 PM) A/G Ratio [0.7-1.6] 8.5 mg/dL (02/14/17 11:56 AM) 9.2 mg/dL (02/11/17 8:32 AM) 9.3 mg/dL (02/10/17 7:05 AM) Calcium Lvl [8.5-10.5 mg/dL] 2.6 mg/dL (02/07/17 5:58 AM) 1.8 mg/dL *LOW* (02/06/17 8:38 AM) 2.4 mg/dL *LOW* (02/06/17 3:44 AM) Phosphorus [2.5-4.5 mg/dL] 2.1 mg/dL (02/07/17 5:58 AM) 2.4 mg/dL (02/06/17 8:38 AM) 2.5 mg/dL *HI* (02/06/17 3:44 AM) Magnesium Lvl [1.8-2.4 mg/dL] 39 unit/L (02/14/17 11:56 AM) 40 unit/L (02/07/17 5:58 AM) 58 unit/L (02/05/17 8:43 PM) ALT [0-65 unit/L] 15 unit/L (02/14/17 11:56 AM) 67 unit/L *HI* (02/07/17 5:58 AM) 48 unit/L *HI* (02/05/17 8:43 PM) AST [0-37 unit/L] 68 unit/L (02/14/17 11:56 AM) 58 unit/L (02/07/17 5:58 AM) 87 unit/L (02/05/17 8:43 PM) Alk Phos [39-136 unit/L] 0.5 mg/dL (02/14/17 11:56 AM) 0.3 mg/dL (02/07/17 5:58 AM) 0.3 mg/dL (02/05/17 8:43 PM) Bili Total [0.2-1.3 mg/dL] 2.1 mMol/L (02/06/17 8:38 AM) 3.5 mMol/L *HI* (02/06/17 3:44 AM) 3.3 mMol/L *HI* (02/05/17 8:43 PM) Lactic Acid Lvl [0.5-2.2 mMol/L] 0.35 ng/mL *HI* (02/05/17 8:43 PM) Procalcitonin Lvl [0.00-0.10 ng/mL] 1Result Comment: The eGFR is calculated using the CKD-EPI formula. In most young, healthy individuals the eGFR will be >90 mL/min/1.73m2. The eGFR declines with age. An eGFR of 60-89 may be normal in some populations, particularly the elderly, for whom the CKD-EPI formula has not been extensively validated. Use of the eGFR is not recommended in the following populations: Individuals with unstable creatinine concentrations, including patients and those with serious co-morbid conditions. Patients with extremes in muscle mass or diet. The data above are obtained from the National Kid[employer] Disease Education Program ( [employer]) which additionally recommends that when the eGFR is used in patients with extremes of body mass index for purposes of drug dosing, the eGFR should be mul tiplied by the estimated BMI. 2Result Comment: The eGFR is calculated using the CKD-EPI formula. In most young, healthy individuals the eGFR will be >90 mL/min/1.73m2. The eGFR declines with age. An eGFR of 60-89 may be normal in some populations, particularly the elderly, for whom the CKD-EPI formula has not been extensively validated. Use of the eGFR is not recommended in the following populations: Individuals with unstable creatinine concentrations, including patients and those with serious co-morbid conditions. Patients with extremes in muscle mass or diet. The data above are obtained from the National Kid[employer] Disease Education Program ( [employer]) which additionally recommends that when the eGFR is used in patients with extremes of body mass index for purposes of drug dosing, the eGFR should be mul tiplied by the estimated BMI. 3Result Comment: The eGFR is calculated using the CKD-EPI formula. In most young, healthy individuals the eGFR will be >90 mL/min/1.73m2. The eGFR declines with age. An eGFR of 60-89 may be normal in some populations, particularly the elderly, for whom the CKD-EPI formula has not been extensively validated. Use of the eGFR is not recommended in the following populations: Individuals with unstable creatinine concentrations, including patients and those with serious co-morbid conditions. Patients with extremes in muscle mass or diet. The data above are obtained from the National Kidney Disease Education Program ( [employer]) which additionally recommends that when the eGFR is used in patients with extremes of body mass index for purposes of drug dosing, the eGFR should be mul tiplied by the estimated BMI. CARDIAC ENZYMES 1 2 3 Most recent to oldest [Reference Range]: 201 unit/L *HI* (02/06/17 8:38 AM) 77 unit/L (02/06/17 3:44 AM) 117 unit/L (02/05/17 8:43 PM) Total CK [12-191 unit/L] 3.4 ng/mL (02/06/17 8:38 AM) 3.0 ng/mL (02/06/17 3:44 AM) 7.7 ng/mL *HI* (02/05/17 8:43 PM) CK MB [0.5-3.6 ng/mL] 1.7 (02/06/17 8:38 AM) 3.9 *HI* (02/06/17 3:44 AM) 6.6 *HI* (02/05/17 8:43 PM) CK MB Index [0.0-2.5] 0.03 ng/mL (02/06/17 8:38 AM) 0.04 ng/mL (02/06/17 3:44 AM) 0.02 ng/mL (02/05/17 8:43 PM) Troponin-I [0.00-0.40 ng/mL] SPECIAL CHEMISTRY 1 2 3 Most recent to oldest [Reference Range]: 6.1 % *HI* (02/06/17 3:44 AM) Hgb A1C [<=5.6 %] TOXICOLOGY 1 2 3 Most recent to oldest [Reference Range]: <2 ug/ml *LOW* (02/05/17 9:47 PM) Acetaminoph Lvl [10-20 ug/ml] <1.7 mg/dL (02/05/17 9:47 PM) Salicylate Lvl [0.0-30.0 mg/dL] <.003 % *NA* (02/05/17 9:47 PM) Etoh (%) <3 mg/dL *NA* (02/05/17 9:47 PM) Ethanol Lvl URINE AND STOOL 1 2 3 Most recent to oldest [Reference Range]: Clear (02/05/17 11:16 PM) UA Turbidity [Clear] Yellow *NA* (02/05/17 11:16 PM) UA Color [Yellow] 5.0 (02/05/17 11:16 PM) UA pH [5.0-8.0] 1.016 (02/05/17 11:16 PM) UA Spec Grav [<=1.030] Negative mg/dL *NA* (02/05/17 11:16 PM) UA Glucose [Negative mg/dL] Negative (02/05/17 11:16 PM) UA Blood [Negative] Negative mg/dL *NA* (02/05/17 11:16 PM) UA Ketones [Negative mg/dL] 100 mg/dL *ABN* (02/05/17 11:16 PM) UA Protein [Negative mg/dL] <=1.0 mg/dL *NA* (02/05/17 11:16 PM) UA Urobilinogen [0.1-1.0 mg/dL] Negative *NA* (02/05/17 11:16 PM) UA Bili [Negative] Negative (02/05/17 11:16 PM) UA Leuk Est [Negative] Negative (02/05/17 11:16 PM) UA Nitrite [Negative] 2 /HPF (02/05/17 11:16 PM) UA WBC [0-5 /HPF] 1 /HPF (02/05/17 11:16 PM) UA RBC [0-2 /HPF] Occasional /LPF *NA* (02/05/17 11:16 PM) UA Sq Epi [Few /LPF] HEMATOLOGY 1 2 3 Most recent to oldest [Reference Range]: 12.8 K/CMM *HI* (02/14/17 11:56 AM) 10.6 K/CMM *HI* (02/11/17 8:32 AM) 9.0 K/CMM (02/10/17 7:05 AM) WBC [3.7-10.4 K/CMM] 4.47 M/CMM *LOW* (02/14/17 11:56 AM) 4.81 M/CMM (02/11/17 8:32 AM) 4.60 M/CMM *LOW* (02/10/17 7:05 AM) RBC [4.70-6.10 M/CMM] 12.9 g/dL *LOW* (02/14/17 11:56 AM) 14.0 g/dL (02/11/17 8:32 AM) 13.4 g/dL *LOW* (02/10/17 7:05 AM) Hgb [14.0-18.0 g/dL] 39.8 % *LOW* (02/14/17 11:56 AM) 42.9 % (02/11/17 8:32 AM) 40.8 % *LOW* (02/10/17 7:05 AM) Hct [42.0-54.0 %] 89.0 fL (02/14/17 11:56 AM) 89.1 fL (02/11/17 8:32 AM) 88.8 fL (02/10/17 7:05 AM) MCV [80.0-94.0 fL] 28.9 pg (02/14/17 11:56 AM) 29.0 pg (02/11/17 8:32 AM) 29.1 pg (02/10/17 7:05 AM) MCH [27.0-31.0 pg] 32.5 g/dL (02/14/17 11:56 AM) 32.6 g/dL (02/11/17 8:32 AM) 32.8 g/dL (02/10/17 7:05 AM) MCHC [32.0-36.0 g/dL] 13.4 % (02/14/17 11:56 AM) 13.1 % (02/11/17 8:32 AM) 13.0 % (02/10/17 7:05 AM) RDW [11.5-14.5 %] 195 K/CMM (02/14/17 11:56 AM) 187 K/CMM (02/11/17 8:32 AM) 177 K/CMM (02/10/17 7:05 AM) Platelet [133-450 K/CMM] 7.5 fL (02/14/17 11:56 AM) 7.9 fL (02/11/17 8:32 AM) 8.2 fL (02/10/17 7:05 AM) MPV [7.4-10.4 fL] 90.0 % *HI* (02/14/17 11:56 AM) 91.2 % *HI* (02/07/17 5:58 AM) 94.3 % *HI* (02/06/17 3:44 AM) Segs [45.0-75.0 %] 0.0 % (02/14/17 11:56 AM) Bands [0.0-11.0 %] 3.0 % *LOW* (02/14/17 11:56 AM) 3.3 % *LOW* (02/07/17 5:58 AM) 2.5 % *LOW* (02/06/17 3:44 AM) Lymphocytes [20.0-40.0 %] 0.0 % (02/14/17 11:56 AM) Atypical Lymphs [<=0.0 %] 3.0 % (02/14/17 11:56 AM) 5.4 % (02/07/17 5:58 AM) 3.2 % (02/06/17 3:44 AM) Monocytes [2.0-12.0 %] 0.1 % (02/07/17 5:58 AM) 0.3 % (02/05/17 8:43 PM) Basophils [0.0-1.0 %] 4.0 % *HI* (02/14/17 11:56 AM) Metamyelocytes [0.0-1.0 %] 11.5 K/CMM *HI* (02/14/17 11:56 AM) 10.6 K/CMM *HI* (02/07/17 5:58 AM) 7.9 K/CMM (02/06/17 3:44 AM) Segs-Bands # [1.5-8.1 K/CMM] 0.4 K/CMM *LOW* (02/14/17 11:56 AM) 0.4 K/CMM *LOW* (02/07/17 5:58 AM) 0.2 K/CMM *LOW* (02/06/17 3:44 AM) Lymphocytes # [1.0-5.5 K/CMM] 0.4 K/CMM (02/14/17 11:56 AM) 0.6 K/CMM (02/07/17 5:58 AM) 0.3 K/CMM (02/06/17 3:44 AM) Monocytes # [0.0-0.8 K/CMM] Slight *Unknown* (02/14/17 11:56 AM) Tear Cell Normal (02/14/17 11:56 AM) Plt Morph 12.3 seconds (02/05/17 8:43 PM) PT [12.0-14.7 seconds] 0.91 (02/05/17 8:43 PM) INR [0.85-1.17] 32.9 seconds (02/05/17 8:43 PM) PTT [22.9-35.8 seconds] Immunizations Given and Recorded Vaccine Date Status Refusal Reason diphtheria/pertussis, acel/tetanus adult 07/10/15 Given Procedures Procedure Date Related Diagnosis Body Site Rotator cuff repair Social History Social History Type Response Alcohol Past Smoking Status Former smoker; Type: Cigarettes; Exposure to Tobacco Smoke None; Cigarette Smoking Last 365 Days No; Reg Smoking Cessation Counseling No; Number of years: 40; Other Tobacco Frequency 1/2 pack per day; Assessment and Plan Extracted from: Title: Clinical Document Author: Tay Burr MD Date: 02/15/17 Psychiatry Progress Note. TAY BURR M.D. Board Certified in Adult and Geriatric Psychiatry. Patient seen, Events noted. SUBJECTIVE : Feels better OBJECTIVE : He is alert, awake, mood better, no agitation, no s.e of meds. Allergies: chlorhexidine containing compounds, NSAIDs, Vioxx Labs Most Recent Results Previous Results Previous Results Previous Results WBC H 12.8 (FEB 14) H 10.6 (FEB 11) 9.0 (FEB 10) 8.0 (FEB 09) Hgb L 12.9 (FEB 14) 14.0 (FEB 11) L 13.4 (FEB 10) L 12.0 (FEB 09) Hct L 39.8 (FEB 14) 42.9 (FEB 11) L 40.8 (FEB 10) L 36.5 (FEB 09) Plt 195 (FEB 14) 187 (FEB 11) 177 (FEB 10) 164 (FEB 09) Na 139 (FEB 14) 137 (FEB 11) 138 (FEB 10) 139 (FEB 09) K 4.4 (FEB 14) 4.4 (FEB 11) 4.4 (FEB 10) 4.2 (FEB 09) CO2 H 34 (FEB 14) H 39 (FEB 11) H 38 (FEB 10) C 40 (FEB 09) Cl 98 (FEB 14) L 92 (FEB 11) L 93 (FEB 10) 96 (FEB 09) Cr 0.64 (FEB 14) 0.62 (FEB 11) 0.62 (FEB 10) 0.58 (FEB 09) BUN H 28 (FEB 14) 20 (FEB 11) 18 (FEB 10) 18 (FEB 09) Glucose Random H 113 (FEB 14) 96 (FEB 11) H 102 (FEB 10) H 122 (FEB 09) Mg 2.1 (FEB 07) 2.4 (FEB 06) H 2.5 (FEB 06) -- Phos 2.6 (FEB 07) L 1.8 (FEB 06) L 2.4 (FEB 06) -- Ca 8.5 (FEB 14) 9.2 (FEB 11) 9.3 (FEB 10) 8.6 (FEB 09) PT 12.3 (FEB 05) -- -- -- INR 0.91 (FEB 05) -- -- -- PTT 32.9 (FEB 05) -- -- -- Troponin 0.03 (FEB 06) 0.04 (FEB 06) 0.02 (FEB 05) -- CK MB 3.4 (FEB 06) 3.0 (FEB 06) H 7.7 (FEB 05) -- Total CK H 201 (FEB 06) 77 (FEB 06) 117 (FEB 05) RTF_CENTER, -- MENTAL STATUS EXAM: Alert, awake, mood better, no agitation, 0 x 3. ASSESSMENT: 1. Major depression, recurrent, moderate without psychotic symptoms. 2. NOS anxiety disorder. PLAN: Continue Zoloft 200 mg daily. Continue Remeron 15 mg at bedtime. Continue trazodone 100 mg at bedtime. Continue lorazepam 1 mg p.o. twice a day. OK to dc from psychiatric stand point. Extracted from: Title: Clinical Document Author: Tay Burr MD Date: 02/09/17 patient seen report dictated Meds adjusted will follow along with you Thank you for the consult.
--- OUTSIDE RECORDS SUMMARY | 2018-09-08 06:33 | XMS REPORT | Summary of Care ---
Author Author [facility] Organization [facility] Address Unknown Phone Unavailable Encounter SAUD Varner(JOYCE) [id number] Date(s): 10/18/16 - 10/18/16 [facility] [address] [place] [address]- [phone] Discharge Diagnosis: Acute exacerbation of chronic obstructive pulmonary disease (COPD) Discharge Diagnosis: Acute anxiety Discharge Disposition: Home or Self Care Attending Physician: Mannie Alaniz DO Vital Signs 1 2 3 Most recent to oldest [Reference Range]: 165.1 cm (10/18/16 8:38 AM) Height 98.3 DegF (10/18/16 1:15 PM) 98 DegF (10/18/16 8:38 AM) Temperature Oral [96.4-99.1 DegF] 141/67 mmHg *HI* (10/18/16 1:15 PM) 149/82 mmHg *HI* (10/18/16 11:30 AM) 139/86 mmHg (10/18/16 9:03 AM) Blood Pressure [90-140/60-90 mmHg] 17 BRMIN (10/18/16 1:15 PM) 21 BRMIN *HI* (10/18/16 11:30 AM) 16 BRMIN (10/18/16 9:03 AM) Respiratory Rate [14-20 BRMIN] 85 bpm (10/18/16 1:15 PM) 74 bpm (10/18/16 9:03 AM) 76 bpm (10/18/16 8:38 AM) Peripheral Pulse Rate [60-100 bpm] 56.818 kg (10/18/16 8:38 AM) Weight 20.84 m2 (10/18/16 8:38 AM) Body Mass Index Problem List Condition Effective Dates Status Health Status Informant Anxiety(Confirmed) Resolved Asthma(Confirmed) Active COPD(Confirmed) Active Hepatitis Active C(Confirmed) Hypertension(Confirm Active ed) Smoker(Confirmed) Active Allergies, Adverse Reactions, Alerts Substance Reaction Severity Status chlorhexidine containing Active compounds NSAIDs Active Vioxx Active Medications albuterol-ipratropium 2.5-0.5 mg inhalation solution 3 mL, Route: NEB, Drug Form: SOLN, Dosing Weight 56.818, kg, ONCE, STAT, Start d ate: 10/18/16 9:20:00 CDT, Stop date: 10/18/16 9:20:00 CDT Start Date: 10/18/16 Stop Date: 10/18/16 Status: Completed Ativan 1 mg, Route: IVP, Drug form: INJ, ONCE, Dosing Weight 56.818, kg, Priority: STAT , Start date: 10/18/16 9:20:00 CDT, Stop date: 10/18/16 9:20:00 CDT Start Date: 10/18/16 Stop Date: 10/18/16 Status: Completed Ativan 0.5 mg oral tablet 0.5 mg=1 tab, PO, BID, PRN Anxiety, X 5 day, # 10 tab, 0 Refill(s) Start Date: 10/18/16 Stop Date: 10/23/16 Status: Ordered predniSONE 50 mg oral tablet 50 mg=1 tab, PO, Daily, X 5 day, # 5 tab, 0 Refill(s) Start Date: 10/18/16 Stop Date: 10/23/16 Status: Ordered Saline Flush 0.9% 10 mL, Route: IVP, Drug Form: INJ, Dosing Weight 56.818, kg, PRN, PRN Line Flush , Start date: 10/18/16 9:20:00 CDT, Duration: 30 day, Stop date: 11/17/16 9:19:0 0 CDT Notes: (Same as: BD Posiflush) Start Date: 10/18/16 Stop Date: 10/18/16 Status: Discontinued Solu-MEDROL 125 mg, 2 mL, Route: IVP, Drug form: INJ, ONCE, Dosing Weight 56.818, kg, Priori ty: STAT, Start date: 10/18/16 11:15:00 CDT, Stop date: 10/18/16 11:15:00 CDT Notes: (Same as:Solu-MEDROL, A-Methapred) Start Date: 10/18/16 Stop Date: 10/18/16 Status: Completed Results ELECTROLYTES Most recent to 1 oldest [Reference Range]: Sodium Lvl [135-145 136 mEq/L mEq/L] (10/18/16 9:29 AM) Potassium Lvl 3.8 mEq/L [3.5-5.1 mEq/L] (10/18/16 9:29 AM) Chloride Lvl [95-109 95 mEq/L mEq/L] (10/18/16 9:29 AM) CO2 [24-32 mEq/L] 36 mEq/L *HI* (10/18/16 9:29 AM) AGAP [10.0-20.0 8.8 mEq/L mEq/L] *LOW* (10/18/16 9:29 AM) CHEM PANEL Most recent to 1 oldest [Reference Range]: Creatinine Lvl 0.84 mg/dL [0.50-1.40 mg/dL] (10/18/16 9:29 AM) eGFR 92 mL/min/1.73m2 1 *NA* (10/18/16 9:29 AM) BUN [7-22 mg/dL] 17 mg/dL (10/18/16 9:29 AM) B/C Ratio [6-25] 20 (10/18/16 9:29 AM) Glucose Lvl [70-99 116 mg/dL mg/dL] *HI* (10/18/16 9:29 AM) Total Protein 7.5 g/dL [6.4-8.4 g/dL] (10/18/16 9:29 AM) Albumin Lvl [3.5-5.0 3.6 g/dL g/dL] (10/18/16 9:29 AM) Globulin [2.7-4.2 3.9 g/dL g/dL] (10/18/16 9:29 AM) A/G Ratio [0.7-1.6] 0.9 (10/18/16 9:29 AM) Calcium Lvl 8.9 mg/dL [8.5-10.5 mg/dL] (10/18/16 9:29 AM) ALT [0-65 unit/L] 208 unit/L *HI* (10/18/16 9:29 AM) AST [0-37 unit/L] 215 unit/L *HI* (10/18/16 9:29 AM) Alk Phos [39-136 151 unit/L unit/L] *HI* (10/18/16 9:29 AM) Bili Total [0.2-1.3 0.5 mg/dL mg/dL] (10/18/16 9:29 AM) 1Result Comment: The eGFR is calculated using [...] tiplied by the estimated BMI. CARDIAC ENZYMES Most recent to 1 oldest [Reference Range]: Total CK [12-191 81 unit/L unit/L] (10/18/16 9:29 AM) CK MB [0.5-3.6 5.0 ng/mL ng/mL] *HI* (10/18/16 9:29 AM) CK MB Index 6.2 [0.0-2.5] *HI* (10/18/16 9:29 AM) Troponin-I <0.02 ng/mL [0.00-0.40 ng/mL] (10/18/16 9:29 AM) URINE AND STOOL Most recent to 1 oldest [Reference Range]: UA Turbidity [Clear] Clear (10/18/16 9:29 AM) UA Color [Yellow] Yellow *NA* (10/18/16 9:29 AM) UA pH [5.0-8.0] 6.0 (10/18/16 9:29 AM) UA Spec Grav 1.017 [<=1.030] (10/18/16 9:29 AM) UA Glucose [Negative Negative mg/dL mg/dL] *NA* (10/18/16 9:29 AM) UA Blood [Negative] Negative (10/18/16 9:29 AM) UA Ketones [Negative Negative mg/dL mg/dL] *NA* (10/18/16 9:29 AM) UA Protein [Negative 30 mg/dL mg/dL] *ABN* (10/18/16 9:29 AM) UA Urobilinogen 2.0 mg/dL [0.1-1.0 mg/dL] *HI* (10/18/16 9:29 AM) UA Bili [Negative] Negative *NA* (10/18/16 9:29 AM) UA Leuk Est Negative [Negative] (10/18/16 9:29 AM) UA Nitrite Negative [Negative] (10/18/16 9:29 AM) UA WBC [0-5 /HPF] 1 /HPF (10/18/16 9:29 AM) UA Bacteria [None Occasional /HPF Seen /HPF] *NA* (10/18/16 9:29 AM) UA Sq Epi None Seen *NA* (10/18/16 9:29 AM) UA Mucus [None Seen Few /LPF /LPF] *NA* (10/18/16 9:29 AM) UA [place] Yeast [None Occasional /HPF Seen /HPF] *ABN* (10/18/16 9:29 AM) UA Hyph Yeast [None Occasional Seen] *ABN* (10/18/16 9:29 AM) HEMATOLOGY Most recent to 1 oldest [Reference Range]: WBC [3.7-10.4 K/CMM] 6.3 K/CMM (10/18/16 9:29 AM) RBC [4.70-6.10 4.98 M/CMM M/CMM] (10/18/16 9:29 AM) Hgb [14.0-18.0 g/dL] 14.2 g/dL (10/18/16 9:29 AM) Hct [42.0-54.0 %] 44.1 % (10/18/16 9:29 AM) MCV [80.0-94.0 fL] 88.5 fL (10/18/16 9:29 AM) MCH [27.0-31.0 pg] 28.5 pg (10/18/16 9:29 AM) MCHC [32.0-36.0 32.2 g/dL g/dL] (10/18/16 9:29 AM) RDW [11.5-14.5 %] 12.9 % (10/18/16 9:29 AM) Platelet [133-450 179 K/CMM K/CMM] (10/18/16 9:29 AM) MPV [7.4-10.4 fL] 7.4 fL (10/18/16 9:29 AM) Segs [45.0-75.0 %] 83.4 % *HI* (10/18/16 9:29 AM) Lymphocytes 8.4 % [20.0-40.0 %] *LOW* (10/18/16 9:29 AM) Monocytes [2.0-12.0 7.5 % %] (10/18/16 9:29 AM) Eosinophils [0.0-4.0 0.3 % %] (10/18/16 9:29 AM) Basophils [0.0-1.0 0.4 % %] (10/18/16 9:29 AM) Segs-Bands # 5.2 K/CMM [1.5-8.1 K/CMM] (10/18/16 9:29 AM) Lymphocytes # 0.5 K/CMM [1.0-5.5 K/CMM] *LOW* (10/18/16 9:29 AM) Monocytes # [0.0-0.8 0.5 K/CMM K/CMM] (10/18/16 9:29 AM) Immunizations Given and Recorded Vaccine Date Status Refusal Reason diphtheria/pertussis, acel/tetanus adult 07/10/15 Given Procedures Procedure Date Related Diagnosis Body Site Rotator cuff repair Social History Social History Type Response Alcohol Current Smoking Status Former smoker; Type: Cigarettes; Number of years: 40; Exposure to Tobacco Smoke None; Other Tobacco Frequency 1/2 pack per day; Cigarette Smoking Last 365 Days No; Reg Smoking Cessation Counseling No Assessment and Plan No data available for this section
--- OUTSIDE RECORDS SUMMARY | 2018-09-08 06:33 | XMS REPORT | Summary of Care ---
Author Author [facility] Organization [facility] Address Unknown Phone Unavailable Encounter SAUD Varner(JOYCE) [id number] Date(s): 12/24/16 - 12/25/16 [facility] [address] [place] [address]- Discharge Disposition: Home or Self Care Attending Physician: Eunice Castillo MD Admitting Physician: Eunice Castillo MD Vital Signs 1 2 3 Most recent to oldest [Reference Range]: 165.1 cm (12/25/16 2:54 AM) 170.18 cm (12/24/16 4:36 PM) Height 98.0 DegF (12/25/16 2:55 PM) 97.9 DegF (12/25/16 11:20 AM) 98.3 DegF (12/25/16 7:07 AM) Temperature Oral [96.4-99.1 DegF] 137/69 mmHg (12/25/16 2:55 PM) 144/70 mmHg *HI* (12/25/16 11:20 AM) 156/81 mmHg *HI* (12/25/16 7:07 AM) Blood Pressure [90-140/60-90 mmHg] 18 BRMIN (12/25/16 2:55 PM) 18 BRMIN (12/25/16 11:20 AM) 18 BRMIN (12/25/16 7:07 AM) Respiratory Rate [14-20 BRMIN] 94 bpm (12/25/16 2:55 PM) 91 bpm (12/25/16 11:20 AM) 81 bpm (12/25/16 7:07 AM) Peripheral Pulse Rate [60-100 bpm] 56.818 kg (12/25/16 2:54 AM) 59.091 kg (12/24/16 4:36 PM) Weight 20.84 m2 (12/25/16 2:54 AM) 20.4 m2 (12/24/16 4:36 PM) Body Mass Index Problem List Condition Effective Dates Status Health Status Informant Anxiety(Confirmed) Resolved Asthma(Confirmed) Active COPD(Confirmed) Active Hepatitis Active C(Confirmed) HLD Active (hyperlipidemia)(Con firmed) Hypertension(Confirm Active ed) Pneumonia(Confirmed) Active Respiratory Resolved distress(Confirmed) Smoker(Confirmed) Active Allergies, Adverse Reactions, Alerts Substance Reaction Severity Status chlorhexidine containing Active compounds NSAIDs Active Vioxx Active Medications albuterol 0.083% inhalation solution 2.49 mg, 3 mL, Route: NEB, Drug form: SOLN, RQ2H, Dosing Weight 56.818, kg, PRN Wheezing, Priority: Routine, Start date: 12/25/16 2:56:00 CDT, Duration: 30 day, Stop date: 01/24/17 2:55:00 PROCESS TRAINER Notes: SEE RT DOCUMENTATION (Same as: Ania) Start Date: 12/25/16 Stop Date: 12/25/16 Status: Discontinued albuterol-ipratropium 2.5-0.5 mg inhalation solution 3 mL, Route: NEB, Drug Form: SOLN, Dosing Weight 56.818, kg, RQ6H, Start date: 1 8:00:00 CDT, Duration: 30 day, Stop date: 01/24/17 2:00:00 PROCESS TRAINER Notes: (Same as: Huma) Start Date: 12/25/16 Stop Date: 12/25/16 Status: Discontinued albuterol-ipratropium 2.5-0.5 mg inhalation solution 3 mL, Route: NEB, Drug Form: SOLN, Dosing Weight 59.091, kg, ONCE, STAT, Start d ate: 12/24/16 22:36:00 CDT, Stop date: 12/24/16 22:36:00 CDT Notes: (Same as: Huma) Start Date: 12/24/16 Stop Date: 12/24/16 Status: Completed amLODIPine 10 mg oral tablet 10 mg=1 tab, PO, Daily, # 30 tab, 0 Refill(s), Pharmacy: [id number] Start Date: 12/25/16 Status: Ordered Ativan 0.5 mg, 1 tab, Route: PO, Drug form: TAB, TID, Dosing Weight 56.818, kg, PRN Anx iety, Start date: 12/25/16 12:22:00 CDT, Duration: 30 day, Stop date: 01/24/17 1 2:21:00 PROCESS TRAINER Notes: (Same as: Ativan) Start Date: 12/25/16 Stop Date: 12/25/16 Status: Discontinued azithromycin 500 mg, 2 tab, Route: PO, Drug form: TAB, ONCE, Dosing Weight 56.818, kg, Start date: 12/25/16 2:56:00 CDT, Duration: 1 doses or times, Stop date: 12/25/16 2:56 :00 CDT, Initial Dose, ABX Indication: Non-PNA Respiratory Tract Infection Notes: Take 1 hour before or 2 hours after meals.(Same As: Zithromax) Start Date: 12/25/16 Stop Date: 12/25/16 Status: Completed azithromycin 250 mg, 1 tab, Route: PO, Drug form: TAB, [id number], Dosing Weight 56.818, kg, Sta rt date: 12/25/16 3:00:00 CDT, Stop date: 12/29/16 3:00:00 CDT, ABX Indication: Non-PNA Respiratory Tract Infection Notes: Take 1 hour before or 2 hours after meals.(Same As: Zithromax) Start Date: 12/25/16 Stop Date: 12/25/16 Status: Discontinued azithromycin 500 mg oral tablet 500 mg=1 tab, PO, Daily, X 3 day, # 3 tab, 0 Refill(s), Pharmacy: [facility] [id number] Start Date: 12/25/16 Stop Date: 12/28/16 Status: Ordered LORazepam 2 mg oral tablet 2 mg=1 tab, PO, BID, PRN Anxiety, X 30 day, # 60 tab, 0 Refill(s) Start Date: 12/25/16 Stop Date: 01/24/17 Status: Ordered [employer] 10/325 oral tablet 1 tab, PO, Q8H, 0 Refill(s) Start Date: 12/25/16 Status: Ordered predniSONE 60 mg, 3 tab, Route: PO, Drug form: TAB, Daily, Dosing Weight 56.818, kg, Start date: 12/25/16 9:00:00 CDT, Duration: 30 day, Stop date: 01/23/17 9:00:00 CDT Notes: Take with food. Start Date: 12/25/16 Stop Date: 12/25/16 Status: Discontinued predniSONE 2 mg oral delayed release tablet 2 mg=1 tab, PO, Daily, 0 Refill(s) Start Date: 12/25/16 Stop Date: 12/25/16 Status: Discontinued predniSONE 20 mg oral tablet 20 mg=1 tab, PO, Daily, # 30 tab, 0 Refill(s), Pharmacy: [id number] Start Date: 12/25/16 Stop Date: 12/26/16 Status: Completed Saline Flush 0.9% 10 mL, Route: IVP, Drug Form: INJ, Dosing Weight 59.091, kg, PRN, PRN Line Flush , Start date: 12/24/16 16:50:00 CDT, Duration: 30 day, Stop date: 01/23/17 16:49 :00 CDT Notes: (Same as: BD Posiflush) Start Date: 12/24/16 Stop Date: 12/25/16 Status: Discontinued sertraline 100 mg oral tablet 200 mg=2 tab, PO, Daily, # 60 tab, 1 Refill(s), Pharmacy: [id number] Start Date: 12/25/16 Status: Ordered Solu-MEDROL 60 mg, 1.5 mL, Route: IVP, Drug form: INJ, ONCE, Dosing Weight 59.091, kg, Prior ity: STAT, Start date: 12/24/16 22:35:00 CDT, Stop date: 12/24/16 22:35:00 CDT Notes: (Same as:Solu-MEDROL, A-Methapred) Start Date: 12/24/16 Stop Date: 12/25/16 Status: Completed trazodone 150 mg oral tablet 300 mg=2 tab, PO, Bedtime, # 60 tab, 1 Refill(s), Pharmacy: [email or web address] [id number] Start Date: 12/25/16 Status: Ordered trazodone 50 mg oral tablet 50 mg=1 tab, PO, Bedtime, # 30 tab, 1 Refill(s) Start Date: 12/25/16 Stop Date: 12/25/16 Status: Discontinued Results ELECTROLYTES Most recent to 1 oldest [Reference Range]: Sodium Lvl [135-145 137 mEq/L mEq/L] (12/24/16 6:51 PM) Potassium Lvl 3.8 mEq/L [3.5-5.1 mEq/L] (12/24/16 6:51 PM) Chloride Lvl [95-109 87 mEq/L mEq/L] *LOW* (12/24/16 6:51 PM) CO2 [24-32 mEq/L] 37 mEq/L *HI* (12/24/16 6:51 PM) AGAP [10.0-20.0 16.8 mEq/L mEq/L] (12/24/16 6:51 PM) CHEM PANEL Most recent to 1 oldest [Reference Range]: Creatinine Lvl 1.10 mg/dL [0.50-1.40 mg/dL] (12/24/16 6:51 PM) eGFR 70 mL/min/1.73m2 1 *NA* (12/24/16 6:51 PM) BUN [7-22 mg/dL] 19 mg/dL (12/24/16 6:51 PM) B/C Ratio [6-25] 17 (12/24/16 6:51 PM) Glucose Lvl [70-99 117 mg/dL mg/dL] *HI* (12/24/16 6:51 PM) Total Protein 7.6 g/dL [6.4-8.4 g/dL] (12/24/16 6:51 PM) Albumin Lvl [3.5-5.0 4.1 g/dL g/dL] (12/24/16 6:51 PM) Globulin [2.7-4.2 3.5 g/dL g/dL] (12/24/16 6:51 PM) A/G Ratio [0.7-1.6] 1.2 (12/24/16 6:51 PM) Calcium Lvl 9.6 mg/dL [8.5-10.5 mg/dL] (12/24/16 6:51 PM) Magnesium Lvl 2.0 mg/dL [1.8-2.4 mg/dL] (12/24/16 6:51 PM) ALT [0-65 unit/L] 289 unit/L *HI* (12/24/16 6:51 PM) AST [0-37 unit/L] 197 unit/L *HI* (12/24/16 6:51 PM) Alk Phos [39-136 73 unit/L unit/L] (12/24/16 6:51 PM) Bili Total [0.2-1.3 0.8 mg/dL mg/dL] (12/24/16 6:51 PM) 1Result Comment: The eGFR is calculated using [...] 1 oldest [Reference Range]: Total CK [12-191 71 unit/L unit/L] (12/24/16 6:51 PM) CK MB [0.5-3.6 5.5 ng/mL ng/mL] *HI* (12/24/16 6:51 PM) CK MB Index 7.7 [0.0-2.5] *HI* (12/24/16 6:51 PM) Troponin-I <0.02 ng/mL [0.00-0.40 ng/mL] (12/24/16 6:51 PM) BNP [<=100 pg/mL] 104 pg/mL *HI* (12/24/16 6:51 PM) URINE AND STOOL Most recent to 1 oldest [Reference Range]: UA Turbidity [Clear] Clear (12/25/16 12:45 AM) UA Color [Yellow] Yellow *NA* (12/25/16 12:45 AM) UA pH [5.0-8.0] 6.0 (12/25/16 12:45 AM) UA Spec Grav 1.018 [<=1.030] (12/25/16 12:45 AM) UA Glucose [Negative 500 mg/dL mg/dL] *ABN* (12/25/16 12:45 AM) UA Blood [Negative] Small *ABN* (12/25/16 12:45 AM) UA Ketones [Negative Trace mg/dL mg/dL] *ABN* (12/25/16 12:45 AM) UA Protein [Negative 100 mg/dL mg/dL] *ABN* (12/25/16 12:45 AM) UA Urobilinogen <=1.0 mg/dL [0.1-1.0 mg/dL] *NA* (12/25/16 12:45 AM) UA Bili [Negative] Negative *NA* (12/25/16 12:45 AM) UA Leuk Est Negative [Negative] (12/25/16 12:45 AM) UA Nitrite Negative [Negative] (12/25/16 12:45 AM) UA WBC [0-5 /HPF] 3 /HPF (12/25/16 12:45 AM) UA RBC [0-2 /HPF] 11 /HPF *HI* (12/25/16 12:45 AM) UA Sq Epi None Seen *NA* (12/25/16 12:45 AM) UA Hyal Cast [0-2 3 /LPF /LPF] *HI* (12/25/16 12:45 AM) HEMATOLOGY Most recent to 1 oldest [Reference Range]: WBC [3.7-10.4 K/CMM] 9.4 K/CMM (12/24/16 6:51 PM) RBC [4.70-6.10 5.85 M/CMM M/CMM] (12/24/16 6:51 PM) Hgb [14.0-18.0 g/dL] 16.9 g/dL (12/24/16 6:51 PM) Hct [42.0-54.0 %] 52.7 % (12/24/16 6:51 PM) MCV [80.0-94.0 fL] 90.0 fL (12/24/16 6:51 PM) MCH [27.0-31.0 pg] 28.9 pg (12/24/16 6:51 PM) MCHC [32.0-36.0 32.1 g/dL g/dL] (12/24/16 6:51 PM) RDW [11.5-14.5 %] 13.5 % (12/24/16 6:51 PM) Platelet [133-450 147 K/CMM K/CMM] (12/24/16 6:51 PM) MPV [7.4-10.4 fL] 8.3 fL (12/24/16 6:51 PM) Segs [45.0-75.0 %] 91.9 % *HI* (12/24/16 6:51 PM) Lymphocytes 5.6 % [20.0-40.0 %] *LOW* (12/24/16 6:51 PM) Monocytes [2.0-12.0 1.9 % %] *LOW* (12/24/16 6:51 PM) Eosinophils [0.0-4.0 0.1 % %] (12/24/16 6:51 PM) Basophils [0.0-1.0 0.5 % %] (12/24/16 6:51 PM) Segs-Bands # 8.6 K/CMM [1.5-8.1 K/CMM] *HI* (12/24/16 6:51 PM) Lymphocytes # 0.5 K/CMM [1.0-5.5 K/CMM] *LOW* (12/24/16 6:51 PM) Monocytes # [0.0-0.8 0.2 K/CMM K/CMM] (12/24/16 6:51 PM) PT [12.0-14.7 12.8 seconds seconds] (12/24/16 6:51 PM) INR [0.85-1.17] 0.94 (12/24/16 6:51 PM) PTT [22.9-35.8 28.1 seconds seconds] (12/24/16 6:51 PM) Immunizations Given and Recorded Vaccine Date Status Refusal Reason diphtheria/pertussis, acel/tetanus adult 07/10/15 Given Procedures Procedure Date Related Diagnosis Body Site Rotator cuff repair Social History Social History Type Response Alcohol Past Smoking Status Former smoker; Type: Cigarettes; Number of years: 40; Exposure to Tobacco Smoke None; Other Tobacco Frequency 1/2 pack per day; Cigarette Smoking Last 365 Days No; Reg Smoking Cessation Counseling No Assessment and Plan Extracted from: Title: Clinical Document Author: Eunice Castillo MD Date: 12/25/16 Hospitalist Discharge Summary Patient was admitted on 12/25/2016 Date of Discharge: 12/25/2016 Diagnoses: Chronic obstructive pulmonary disease with (acute) exacerbation (J44.1) Shortness of breath (R06.02) Anxiety Hypertension Neuropathy Consulting Physicians: Sarah Beth Abbasi MDOffice: Service: Medicine Procedures: None Discharge Meds: Please see separate discharge medication reconciliation Disposition: Home Follow-Up with: PCP: Dr. Castillo Hospital Course: This 66-year-old male came in secondary to COPD exacerbation. He was started on steroids and neb treatments and antibiotics. Chest x-ray was done did not show any signs of infection however he did have some scarring. His blood work was unremarkable with normal white count. He had ran out of his medications and that is why he had to come to the hospital for further evaluation and having an exacerbation of his COPD. After he is back on his medications started to feel better and was ready for discharge home. Patient's home medications were resumed and new prescriptions were written he was also put back on his anxiety medications which seem to help him as well. He is to follow-up with myself Dr. Castillo in 1 week as well as with his lung doctor. Time spent on discharge process: Greater than 35 minutes. cc: PCP
--- OUTSIDE RECORDS SUMMARY | 2018-09-08 06:34 | XMS REPORT | CCD ---
Author Author Auto Generated Organization [facility] Address Unknown Phone Unavailable Care Team Providers Care Jazz Musician Name Role Phone Psacual Whalen CP Allergies, Adverse Reactions, Alerts Substance Reaction Status NKDA Active Vioxx Active
--- OUTSIDE RECORDS SUMMARY | 2018-09-08 06:34 | XMS REPORT | CCD ---
Author Author Auto Generated Organization [facility] - [facility] Address Unknown Phone Unavailable Care Team Providers Care Parts Picker Name Role Phone Suhas Carter CP Allergies, Adverse Reactions, Alerts Substance Reaction Status NKDA Active Vioxx Active
--- OUTSIDE RECORDS SUMMARY | 2018-09-08 06:34 | XMS REPORT | Summary of Care ---
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 Name Role Phone Eunice Castillo PCP Encounter HQ [email or web address]_[email or web address]([email or web address]) [phone] Date(s): 07/16/18 - 07/20/18 [facility] [address] [place] [address]- [phone] Discharge Disposition: [facility] Attending Physician: Eunice Castillo MD Admitting Physician: Eunice Castillo MD Vital Signs 1 2 3 Most recent to oldest [Reference Range]: 165.1 cm (07/17/18 3:41 PM) 165.1 cm (07/17/18 6:07 AM) Height 99.0 DegF (07/20/18 12:06 PM) 99.9 DegF *HI* (07/20/18 7:42 AM) 99.2 DegF *HI* (07/20/18 4:00 AM) Temperature Oral [96.4-99.1 DegF] 141/77 mmHg *HI* (07/20/18 1:00 PM) 125/82 mmHg (07/20/18 11:00 AM) 115/72 mmHg (07/20/18 9:00 AM) Blood Pressure [90-140/60-90 mmHg] 24 BRMIN *HI* (07/20/18 1:00 PM) 21 BRMIN *HI* (07/20/18 11:00 AM) 22 BRMIN *HI* (07/20/18 9:00 AM) Respiratory Rate [14-20 BRMIN] 97 bpm (07/16/18 7:35 PM) Peripheral Pulse Rate [60-100 bpm] 52.386 kg (07/17/18 3:41 PM) 72.727 kg (07/17/18 6:07 AM) Weight 19.22 m2 (07/17/18 3:41 PM) 26.68 m2 (07/17/18 6:07 AM) Body Mass Index Problem List Condition Effective Dates Status Health Status Informant Anxiety(Confirmed) Resolved Asthma(Confirmed) Active COPD(Confirmed) Active Hepatitis Active C(Confirmed) HLD Active (hyperlipidemia)(Con firmed) Hypertension(Confirm Active ed) Pneumonia(Confirmed) Active Respiratory Resolved distress(Confirmed) Severe Active Chronic ; protein-calorie malnutrition(Confirm ed) Smoker(Confirmed) Active Allergies, Adverse Reactions, Alerts Substance Reaction Severity Status Vioxx Active NSAIDs Active chlorhexidine containing Active compounds Medications acetaminophen 650 mg, Route: PO, Drug form: TAB, Q6H, Dosing Weight 45, kg, PRN Pain 1-3/Temp > 100.4 F, Start date: 07/17/18 1:44:00 CDT, Duration: 30 day, Stop date: 08/16/18 1:43:00 CDT Start Date: 07/17/18 Stop Date: 07/17/18 Status: Discontinued albuterol 2.49 mg, 3 mL, Route: NEB, Drug form: SOLN, RQID, Start date: 07/17/18 7:00:00 C DT, Duration: 30 day, Stop date: 08/15/18 19:00:00 CDT Notes: SEE RT DOCUMENTATION (Same as: Ania) Start Date: 07/17/18 Stop Date: 07/17/18 Status: Discontinued Albuterol 0.63mg/3ml Albuterol 0.63mg/3ml, 3 mL, NEB, RTID Start Date: 07/17/18 Status: Ordered albuterol-ipratropium 2.5-0.5 mg inhalation solution 3 mL, Route: NEB, Drug Form: SOLN, Dosing Weight 45, kg, RQ6H, Start date: 07/17 2:00:00 CDT, Duration: 30 day, Stop date: 08/15/18 20:00:00 CDT Notes: (Same as: Huma) Start Date: 07/17/18 Stop Date: 07/20/18 Status: Discontinued amLODIPine 10 mg, 2 tab, Route: PO, Drug form: TAB, Daily, Dosing Weight 45, kg, Start date : 07/17/18 9:00:00 CDT, Duration: 30 day, Stop date: 08/15/18 9:00:00 CDT Notes: (Same as: Norvasc) Start Date: 07/17/18 Stop Date: 07/20/18 Status: Discontinued amLODIPine 10 mg oral tablet 10 mg=1 tab, PO, Daily Start Date: 07/17/18 Status: Ordered Ativan 1 mg, Route: PO, Drug form: TAB, ONCE, Dosing Weight 45, kg, Priority: STAT, Sta rt date: 07/17/18 2:43:00 CDT, Stop date: 07/17/18 2:43:00 CDT Start Date: 07/17/18 Stop Date: 07/17/18 Status: Completed azithromycin 250 mg, 1 tab, Route: PO, Drug form: TAB, [id number], Dosing Weight 45, kg, Start d ate: 07/17/18 2:00:00 CDT, Duration: 4 doses or times, Stop date: 07/20/18 2:00: 00 CDT, ABX Indication: Non-PNA Respiratory Tract Infection Notes: Take 1 hour before or 2 hours after meals.(Same As: Zithromax) Start Date: 07/17/18 Stop Date: 07/20/18 Status: Completed bisacodyl 10 mg, 1 supp, Route: WI, Drug form: SUPP, Daily, Dosing Weight 45, kg, PRN Cons tipation, Start date: 07/17/18 1:44:00 CDT, Duration: 30 day, Stop date: 9 1:43:00 CDT Notes: (Same As: Dulcolax, Bisco-Lax) Start Date: 07/17/18 Stop Date: 07/20/18 Status: Discontinued Breo Ellipta 100 mcg-25 mcg inhalation powder 1 puff, INHALATION, Daily Start Date: 07/17/18 Status: Ordered Breo Ellipta 100 mcg-25 mcg inhalation powder 1 puff, INHALATION, Daily, 0 Refill(s) Start Date: 07/17/18 Stop Date: 07/17/18 Status: Deleted Breo Ellipta 100 mcg-25 mcg inhalation powder 1 puff, Route: INHALATION, Drug Form: PWDR, Dosing Weight 45, kg, Daily, Start d ate: 07/17/18 9:00:00 CDT, Duration: 30 day, Stop date: 08/15/18 9:00:00 CDT Start Date: 07/17/18 Stop Date: 07/17/18 Status: Deleted budesonide 0.5 mg/2 mL inhalation suspension 0.5 mg, 2 mL, Route: NEB, Drug form: SUSP, RBID, Dosing Weight 45, kg, Start chantel e: 07/17/18 4:41:00 CDT, Duration: 30 day, Stop date: 08/15/18 20:00:00 CDT Start Date: 07/17/18 Stop Date: 07/17/18 Status: Deleted busPIRone 7.5 mg, PO, BID, 0 Refill(s) Start Date: 07/17/18 Status: Ordered busPIRone 7.5 mg, 1.5 tab, Route: PO, Drug form: TAB, BID, Dosing Weight 45, kg, Start chantel e: 07/17/18 9:00:00 CDT, Duration: 30 day, Stop date: 08/15/18 17:00:00 CDT Notes: (Same As: BuSpar) Start Date: 07/17/18 Stop Date: 07/20/18 Status: Discontinued Cozaar 50 mg, Route: PO, Drug form: TAB, Daily, Dosing Weight 45, kg, Start date: 07/17 9:00:00 CDT, Duration: 30 day, Stop date: 08/15/18 9:00:00 CDT Start Date: 07/17/18 Stop Date: 07/17/18 Status: Deleted Cozaar 50 mg oral tablet 50 mg=1 tab, PO, Daily, # 30 tab, 0 Refill(s) Start Date: 07/17/18 Status: Ordered Dextrose 50% Syringe 25 gm, 50 mL, Route: IVP, Drug Form: INJ, Dosing Weight 45, kg, PRN, PRN Blood G lucose Results, Start date: 07/17/18 1:44:00 CDT, Duration: 30 day, Stop date: 0 08/16/18 1:43:00 CDT Start Date: 07/17/18 Stop Date: 07/20/18 Status: Discontinued Dextrose 50% Syringe 12.5 gm, 25 mL, Route: IVP, Drug Form: INJ, Dosing Weight 45, kg, PRN, PRN Blood Glucose Results, Start date: 07/17/18 1:44:00 CDT, Duration: 30 day, Stop date: 08/16/18 1:43:00 CDT Start Date: 07/17/18 Stop Date: 07/20/18 Status: Discontinued docusate 100 mg, 1 cap, Route: PO, Drug form: CAP, BID, Dosing Weight 45, kg, Start date: 07/17/18 9:00:00 CDT, Duration: 30 day, Stop date: 08/15/18 17:00:00 CDT Notes: (Same as: Colace) (Do Not Crush) Start Date: 07/17/18 Stop Date: 07/20/18 Status: Discontinued donepezil 5 mg, PO, Bedtime, 0 Refill(s) Start Date: 07/17/18 Stop Date: 07/17/18 Status: Deleted donepezil 5 mg, 1 tab, Route: PO, Drug form: TAB, Bedtime, Dosing Weight 45, kg, Start chantel e: 07/17/18 21:00:00 CDT, Duration: 30 day, Stop date: 08/15/18 21:00:00 CDT Notes: (Same as: Aricept) Start Date: 07/17/18 Stop Date: 07/20/18 Status: Discontinued DuoNeb inhalation solution 3 ml, Route: NEB, Drug Form: SOLN, Dosing Weight 45, kg, PRN, PRN Respiratory Pa thway, Start date: 07/17/18 2:13:00 CDT, Duration: 30 day, Stop date: 08/16/18 2 :12:00 CDT Notes: (Same as: Duoneb) Start Date: 07/17/18 Stop Date: 07/20/18 Status: Discontinued famotidine 20 mg oral tablet 20 mg, 1 tab, Route: PO, Drug form: TAB, Daily, Dosing Weight 45, kg, Start date : 07/17/18 9:00:00 CDT, Duration: 30 day, Stop date: 08/15/18 9:00:00 CDT Notes: (Same as: Pepcid) Start Date: 07/17/18 Stop Date: 07/20/18 Status: Discontinued finasteride 5 mg=1 tab, PO, Daily, # 30 tab, 0 Refill(s) Start Date: 07/17/18 Status: Ordered finasteride 5 mg, 1 tab, Route: PO, Drug form: TAB, Daily, Dosing Weight 45, kg, Start date: 07/17/18 9:00:00 CDT, Duration: 30 day, Stop date: 08/15/18 9:00:00 CDT Notes: (Same as: Proscar) "Do Not Crush"Women of childbearing age should not louisa ch or handle broken tablets Start Date: 07/17/18 Stop Date: 07/20/18 Status: Discontinued fluticasone-salmeterol 113 mcg-14 mcg/inh inhalation powder 1 puff, INHALATION, BID Start Date: 07/17/18 Status: Ordered glucagon 1 mg, Route: IM, Drug form: PDR/INJ, PRN, Dosing Weight 45, kg, PRN Blood Glucos e Results, Start date: 07/17/18 1:44:00 CDT, Duration: 30 day, Stop date: 1:43:00 CDT Start Date: 07/17/18 Stop Date: 07/20/18 Status: Discontinued LORazepam 1 mg oral tablet 1 mg=1 tab, PO, TID Start Date: 07/17/18 Status: Ordered losartan 50 mg, 1 tab, Route: PO, Drug form: TAB, Daily, Dosing Weight 45, kg, Start date : 07/17/18 9:00:00 CDT, Duration: 30 day, Stop date: 08/15/18 9:00:00 CDT Notes: (Same as: Josi) Start Date: 07/17/18 Stop Date: 07/20/18 Status: Discontinued meclizine 12.5 mg, 1 tab, Route: PO, Drug form: TAB, BID, Dosing Weight 45, kg, Start date : 07/17/18 9:00:00 CDT, Duration: 30 day, Stop date: 08/15/18 17:00:00 CDT Notes: (Same as: Joseph) Start Date: 07/17/18 Stop Date: 07/17/18 Status: Discontinued meclizine 12.5 mg oral tablet 12.5 mg=1 tab, PO, BID, 0 Refill(s) Start Date: 07/17/18 Stop Date: 07/17/18 Status: Deleted meclizine 12.5 mg oral tablet 12.5 mg=1 tab, PO, BID, 0 Refill(s) Start Date: 07/17/18 Stop Date: 07/17/18 Status: Deleted meclizine 25 mg oral tablet 25 mg=1 tab, PO, BID, PRN as needed for dizziness Start Date: 07/17/18 Status: Ordered Medrol 4 mg, PO, BID, 0 Refill(s) Start Date: 07/17/18 Stop Date: 07/17/18 Status: Deleted melatonin 3 mg, 1 tab, Route: PO, Drug form: TAB, Bedtime, Dosing Weight 45, kg, PRN Insom alan, Start date: 07/17/18 1:44:00 CDT, Duration: 30 day, Stop date: 08/16/18 1:4 3:00 CDT Notes: (Same as: Melatonin) Start Date: 07/17/18 Stop Date: 07/20/18 Status: Discontinued Multi Vitamin+ 1, PO, Daily, 0 Refill(s) Start Date: 07/17/18 Status: Ordered multivitamin 1 tab, Route: PO, Drug Form: TAB, Dosing Weight 45, kg, Daily, Start date: 07/17 9:00:00 CDT, Duration: 30 day, Stop date: 08/15/18 9:00:00 CDT Notes: (Same as:One Tab Daily, Tab-A-Janak + Beta Carotene) Give with food. Start Date: 07/17/18 Stop Date: 07/20/18 Status: Discontinued [place] 10/325 oral tablet 1 tab, PO, Q12H, 0 Refill(s) Start Date: 07/17/18 Status: Ordered [place] 10/325 oral tablet 1 tab, Route: PO, Drug Form: TAB, Dosing Weight 52.386, kg, BID, PRN Pain Score 6-10, Start date: 07/20/18 6:43:00 CDT, Duration: 30 day, Stop date: 08/19/18 6: 42:00 CDT Notes: Do not exceed 4gm/day of acetaminophen. (Same as: [place] 325/10) Start Date: 07/20/18 Stop Date: 07/20/18 Status: Discontinued [place] 10/325 oral tablet 1 tab, Route: PO, Drug Form: TAB, Dosing Weight 45, kg, Q8H, Start date: 9 8:00:00 CDT, Duration: 30 day, Stop date: 08/16/18 0:00:00 CDT Notes: Do not exceed 4gm/day of acetaminophen. (Same as: [place] 325/10) Start Date: 07/17/18 Stop Date: 07/17/18 Status: Discontinued omeprazole 40 mg oral delayed release capsule 40 mg=1 cap, PO, BID Start Date: 07/17/18 Status: Ordered ondansetron 4 mg, 2 mL, Route: IVP, Drug form: INJ, Q8H, Dosing Weight 45, kg, PRN Nausea & Vomiting, Start date: 07/17/18 1:44:00 CDT, Duration: 30 day, Stop date: 1:43:00 CDT Notes: (Same as: Arnoldo) MEDICATION WASTE Product Size: 4 mgProduct Was nedra: ___ mg Start Date: 07/17/18 Stop Date: 07/20/18 Status: Discontinued ondansetron 8 mg, 2 tab, Route: PO, Drug form: TAB, TID, Dosing Weight 45, kg, Start date: 0 07/17/18 9:00:00 CDT, Duration: 30 day, Stop date: 08/15/18 17:00:00 CDT Notes: (Same as: Arnoldo) Start Date: 07/17/18 Stop Date: 07/17/18 Status: Discontinued ondansetron 8 mg, PO, TID, 0 Refill(s) Start Date: 07/17/18 Status: Ordered predniSONE 40 mg, Route: PO, Drug form: TAB, Daily, Dosing Weight 45, kg, Priority: Routine , Start date: 07/17/18 9:00:00 CDT, Duration: 30 day, Stop date: 08/15/18 9:00:0 0 CDT Start Date: 07/17/18 Stop Date: 07/17/18 Status: Canceled predniSONE 60 mg, 3 tab, Route: PO, Drug form: TAB, Daily, Dosing Weight 45, kg, Start date : 07/17/18 9:00:00 CDT, Duration: 5 day, Stop date: 07/21/18 9:00:00 CDT Notes: Take with food. Start Date: 07/17/18 Stop Date: 07/19/18 Status: Discontinued predniSONE 40 mg, 2 tab, Route: PO, Drug form: TAB, Daily, Dosing Weight 45, kg, Start date : 07/20/18 9:00:00 CDT, Duration: 5 day, Stop date: 07/24/18 9:00:00 CDT Notes: Take with food. Start Date: 07/20/18 Stop Date: 07/20/18 Status: Discontinued predniSONE 20 mg oral tablet 40 mg=2 tab, PO, Daily, 0 Refill(s) Start Date: 07/20/18 Status: Ordered predniSONE 5 mg oral tablet 5 mg=1 tab, PO, Daily Start Date: 07/17/18 Status: Ordered ProAir RespiClick 90 mcg/inh inhalation powder 2 puff, INHALATION, Q4H, 0 Refill(s) Start Date: 07/17/18 Stop Date: 07/17/18 Status: Deleted Pulmicort Respules 0.25 mg, 2 mL, Route: NEB, Drug form: SUSP, RBID, Start date: 07/17/18 8:00:00 C DT, Duration: 30 day, Stop date: 08/15/18 20:00:00 CDT Notes: (Same As: Pulmicort respule). Start Date: 07/17/18 Stop Date: 07/17/18 Status: Discontinued Pulmicort Respules 0.5 mg/2 mL inhalation suspension 0.5 mg, 2 mL, Route: INHALATION, Drug form: SUSP, RBID, Dosing Weight 45, kg, Pr iority: STAT, Start date: 07/17/18 2:13:00 CDT, Duration: 30 day, Stop date: 20:00:00 CDT, strength=0.5 mg /2 mL Notes: (Same As: Pulmicort) Start Date: 07/17/18 Stop Date: 07/20/18 Status: Discontinued RN UPDATE H/W/A IN ADHOC RN UPDATE H/W/A IN ADHOC, ATTN:RN - UPDATE H/W/A, Drug form: MISC, Route: MISC, Q10Min, 07/17/18 4:50:00 CDT, Duration: 1 day, Stop date: 07/18/18 4:40:00 CDT Start Date: 07/17/18 Stop Date: 07/17/18 Status: Deleted Saline Flush 0.9% 10 mL, Route: IVP, Drug Form: INJ, Dosing Weight 45, kg, PRN, PRN Line Flush, St art date: 07/16/18 20:43:00 CDT, Duration: 30 day, Stop date: 08/15/18 20:42:00 CDT Notes: (Same as: BD Posiflush) Start Date: 07/16/18 Stop Date: 07/20/18 Status: Discontinued senna 17.2 mg, 2 tab, Route: PO, Drug Form: TAB, Dosing Weight 45, kg, Bedtime, Start date: 07/17/18 21:00:00 CDT, Duration: 30 day, Stop date: 08/15/18 21:00:00 CDT Notes: (Same as: Senokot) Start Date: 07/17/18 Stop Date: 07/20/18 Status: Discontinued sertraline 200 mg, 2 tab, Route: PO, Drug form: TAB, Daily, Dosing Weight 45, kg, Start chantel e: 07/17/18 9:00:00 CDT, Duration: 30 day, Stop date: 08/15/18 9:00:00 CDT Notes: (Same as: Zoloft) Start Date: 07/17/18 Stop Date: 07/20/18 Status: Discontinued Solu-MEDROL 125 mg, Route: IVP, ONCE, Dosing Weight 45, kg, Priority: STAT, Start date: 06/21 11/07 1:22:00 CDT, Stop date: 07/17/18 1:22:00 CDT Start Date: 07/17/18 Stop Date: 07/17/18 Status: Completed trazodone 150 mg, 3 tab, Route: PO, Drug form: TAB, Bedtime, Dosing Weight 45, kg, Start d ate: 07/17/18 21:00:00 CDT, Duration: 30 day, Stop date: 08/15/18 21:00:00 CDT Notes: (Same As: Desyrel) Start Date: 07/17/18 Stop Date: 07/20/18 Status: Discontinued Tylenol 650 mg, 2 tab, Route: PO, Drug form: TAB, Q4H, Dosing Weight 52.386, kg, PRN Tim n Score 1-5, Start date: 07/17/18 18:25:00 CDT, Duration: 30 day, Stop date: 18:24:00 CDT Notes: Do not exceed 4 gm/day. (Same as: Tylenol) Start Date: 07/17/18 Stop Date: 07/20/18 Status: Discontinued Ventolin HFA 2 puff, INHALATION, QID, 0 Refill(s) Start Date: 07/17/18 Stop Date: 07/17/18 Status: Deleted Ventolin HFA 90 mcg/inh inhalation aerosol with adapter 2 puff, INHALATION, Q4H, PRN as needed for wheezing Start Date: 07/17/18 Status: Ordered Results 1 2 3 Most recent to oldest [Reference Range]: 6.2 K/CMM (07/17/18 3:51 AM) 4.8 K/CMM (07/16/18 8:52 PM) Neutrophils # [1.5-8.1 K/CMM] 0.5 K/CMM *LOW* (07/17/18 3:51 AM) 0.7 K/CMM *LOW* (07/16/18 8:52 PM) Lymphocytes # [1.0-5.5 K/CMM] 0.1 K/CMM (07/17/18 3:51 AM) 0.5 K/CMM (07/16/18 8:52 PM) Monocytes # [0.0-0.8 K/CMM] 24 pg/mL (07/16/18 8:52 PM) BNP [<=100 pg/mL] 91 mL/min/1.73m2 1 *NA* (07/17/18 3:51 AM) 85 mL/min/1.73m2 2 *NA* (07/17/18 1:20 AM) 86 mL/min/1.73m2 3 *NA* (07/16/18 8:52 PM) eGFR 1.0 (07/17/18 3:51 AM) 1.0 (07/16/18 8:52 PM) A/G Ratio [0.7-1.6] 3.4 g/dL *LOW* (07/17/18 3:51 AM) 3.4 g/dL *LOW* (07/16/18 8:52 PM) Albumin Lvl [3.5-5.0 g/dL] 49 unit/L (07/17/18 3:51 AM) 51 unit/L (07/16/18 8:52 PM) Alk Phos [39-136 unit/L] 59 unit/L (07/17/18 3:51 AM) 60 unit/L (07/16/18 8:52 PM) ALT [0-65 unit/L] 5.8 mEq/L *LOW* (07/17/18 3:51 AM) 8.8 mEq/L *LOW* (07/17/18 1:20 AM) 2.7 mEq/L *LOW* (07/16/18 8:52 PM) AGAP [10.0-20.0 mEq/L] 43 unit/L *HI* (07/17/18 3:51 AM) 41 unit/L *HI* (07/16/18 8:52 PM) AST [0-37 unit/L] 27 *HI* (07/17/18 3:51 AM) 23 (07/16/18 8:52 PM) B/C Ratio [6-25] 0.3 % (07/17/18 3:51 AM) 0.4 % (07/16/18 8:52 PM) Basophils [0.0-1.0 %] 22 mg/dL (07/17/18 3:51 AM) 22 mg/dL (07/17/18 1:20 AM) 21 mg/dL (07/16/18 8:52 PM) BUN [7-22 mg/dL] 8.9 mg/dL (07/17/18 3:51 AM) 9.0 mg/dL (07/17/18 1:20 AM) 8.4 mg/dL *LOW* (07/16/18 8:52 PM) Calcium Lvl [8.5-10.5 mg/dL] 95 mEq/L (07/17/18 3:51 AM) 94 mEq/L *LOW* (07/17/18 1:20 AM) 97 mEq/L (07/16/18 8:52 PM) Chloride Lvl [95-109 mEq/L] 41 mEq/L 4 *CRIT* (07/17/18 3:51 AM) 40 mEq/L 5 *CRIT* (07/17/18 1:20 AM) 43 mEq/L 6 *CRIT* (07/16/18 8:52 PM) CO2 [24-32 mEq/L] 0.82 mg/dL (07/17/18 3:51 AM) 0.93 mg/dL (07/17/18 1:20 AM) 0.91 mg/dL (07/16/18 8:52 PM) Creatinine Lvl [0.50-1.40 mg/dL] 0.1 % (07/17/18 3:51 AM) 0.6 % (07/16/18 8:52 PM) Eosinophils [0.0-4.0 %] 3.4 g/dL (07/17/18 3:51 AM) 3.3 g/dL (07/16/18 8:52 PM) Globulin [2.7-4.2 g/dL] 109 mg/dL *HI* (07/17/18 3:51 AM) 109 mg/dL *HI* (07/17/18 1:20 AM) 120 mg/dL *HI* (07/16/18 8:52 PM) Glucose Lvl [70-99 mg/dL] 38.6 % *LOW* (07/17/18 3:51 AM) 36.2 % *LOW* (07/16/18 8:52 PM) Hct [42.0-54.0 %] 12.3 g/dL *LOW* (07/17/18 3:51 AM) 11.3 g/dL *LOW* (07/16/18 8:52 PM) Hgb [14.0-18.0 g/dL] 0.98 (07/16/18 8:52 PM) INR [0.85-1.17] 4.8 mEq/L (07/17/18 3:51 AM) 4.8 mEq/L (07/17/18 1:20 AM) 3.7 mEq/L (07/16/18 8:52 PM) Potassium Lvl [3.5-5.1 mEq/L] 7.7 % *LOW* (07/17/18 3:51 AM) 11.6 % *LOW* (07/16/18 8:52 PM) Lymphocytes [20.0-40.0 %] 28.3 pg (07/17/18 3:51 AM) 28.4 pg (07/16/18 8:52 PM) MCH [27.0-31.0 pg] 31.9 g/dL *LOW* (07/17/18 3:51 AM) 31.3 g/dL *LOW* (07/16/18 8:52 PM) MCHC [32.0-36.0 g/dL] 88.9 fL (07/17/18 3:51 AM) 90.6 fL (07/16/18 8:52 PM) MCV [80.0-94.0 fL] 1.9 mg/dL (07/17/18 3:51 AM) Magnesium Lvl [1.8-2.4 mg/dL] 1.7 % *LOW* (07/17/18 3:51 AM) 8.5 % (07/16/18 8:52 PM) Monocytes [2.0-12.0 %] 8.2 fL (07/17/18 3:51 AM) 8.1 fL (07/16/18 8:52 PM) MPV [7.4-10.4 fL] 137 mEq/L (07/17/18 3:51 AM) 138 mEq/L (07/17/18 1:20 AM) 139 mEq/L (07/16/18 8:52 PM) Sodium Lvl [135-145 mEq/L] 2.7 mg/dL (07/17/18 3:51 AM) Phosphorus [2.5-4.5 mg/dL] 119 K/CMM *LOW* (07/17/18 3:51 AM) 104 K/CMM *LOW* (07/16/18 8:52 PM) Platelet [133-450 K/CMM] 90.2 % *HI* (07/17/18 3:51 AM) 78.9 % *HI* (07/16/18 8:52 PM) Segs [45.0-75.0 %] 6.8 g/dL (07/17/18 3:51 AM) 6.7 g/dL (07/16/18 8:52 PM) Total Protein [6.4-8.4 g/dL] 12.8 seconds (07/16/18 8:52 PM) PT [12.0-14.7 seconds] 29.2 seconds (07/16/18 8:52 PM) PTT [22.9-35.8 seconds] 4.35 M/CMM *LOW* (07/17/18 3:51 AM) 3.99 M/CMM *LOW* (07/16/18 8:52 PM) RBC [4.70-6.10 M/CMM] 12.6 % (07/17/18 3:51 AM) 12.9 % (07/16/18 8:52 PM) RDW [11.5-14.5 %] 0.4 mg/dL (07/17/18 3:51 AM) 0.3 mg/dL (07/16/18 8:52 PM) Bili Total [0.2-1.3 mg/dL] <0.02 ng/mL (07/16/18 8:52 PM) Troponin-I [0.00-0.40 ng/mL] Negative *NA* (07/17/18 1:22 AM) UA Bili [Negative] Moderate *ABN* (07/17/18 1:22 AM) UA Blood [Negative] Yellow *NA* (07/17/18 1:22 AM) UA Color [Yellow] Negative mg/dL *NA* (07/17/18 1:22 AM) UA Glucose [Negative mg/dL] 4 /LPF *HI* (07/17/18 1:22 AM) UA Hyal Cast [0-2 /LPF] Negative mg/dL *NA* (07/17/18 1:22 AM) UA Ketones [Negative mg/dL] Negative (07/17/18 1:22 AM) UA Leuk Est [Negative] Negative (07/17/18 1:22 AM) UA Nitrite [Negative] 6.0 (07/17/18 1:22 AM) UA pH [5.0-8.0] 30 mg/dL *ABN* (07/17/18 1:22 AM) UA Protein [Negative mg/dL] 5 /HPF *HI* (07/17/18 1:22 AM) UA RBC [0-2 /HPF] 1.016 (07/17/18 1:22 AM) UA Spec Grav [<=1.030] Occasional /LPF *NA* (07/17/18 1:22 AM) UA Sq Epi [Few /LPF] Slight *ABN* (07/17/18 1:22 AM) UA Turbidity [Clear] <=1.0 mg/dL *NA* (07/17/18 1:22 AM) UA Urobilinogen [0.1-1.0 mg/dL] 12 /HPF *HI* (07/17/18 1:22 AM) UA WBC [0-5 /HPF] Occasional /HPF *ABN* (07/17/18 1:22 AM) UA [place] Yeast [None Seen /HPF] 6.9 K/CMM (07/17/18 3:51 AM) 6.0 K/CMM (07/16/18 8:52 PM) WBC [3.7-10.4 K/CMM] 1Result Comment: The eGFR is calculated using [...] be mul tiplied by the estimated BMI. 4Result Comment: Critical Result(s) called to Leoncio Briones at 07/17/2018 04:35 mfb_ by_. Read back OK. 5Result Comment: Critical Result(s) called to Suresh Griffith_ at 07/17/2018 02:22 mfb_ by_. Read back OK. 6Result Comment: Critical Result(s) called to Chayo Steele at 07/16/2018 21:25_ by_sd. Read back OK. Microbiology Reports TEST: Culture: Urine STATUS: Auth (Verified) BODY SITE: SOURCE: Urine, Clean Catch COLLECTED DATE/TIME: 07/17/18 1:22 AM FINAL REPORT <10,000 CFU/mL Yeast Immunizations Given and Recorded Vaccine Date Status Refusal Reason diphtheria/pertussis, acel/tetanus adult 07/10/15 Given Procedures Procedure Date Related Diagnosis Body Site Status Rotator cuff repair Completed Social History Social History Type Response Alcohol Past Smoking Status Former smoker; Type: Cigarettes; Exposure to Tobacco Smoke None; Cigarette Smoking Last 365 Days No; Reg Smoking Cessation Counseling No; Number of years: 40; Other Tobacco Frequency 1/2 pack per day; entered on: 07/16/18 Assessment and Plan Extracted from: Title: Clinical Document Author: Tee Don MD Date: 07/20/18 Pulmonary/Critical Care Medicine progess note Tee Don MD SUBJECTIVE: Seen and examined. Patient currently on supplemental oxygen. He is sitting upright in the bed. He is feeling slightly better than yesterday. Generalized weakness still present. Events and records reviewed OBJECTIVE: VitalsTmp(F)Tmp(C)[id number] 07/20 08:00 114/[id number]------ 07/20 07:4299.937.72oral 07/20 07:27 98 2.0L/m--- 07/20 06:00 118/[id number]--------- 07/20 04:0099.237.12fdfk937/[id number]------ 24 Hr Tmax: 99.9F (37.72c) at 07/20 07:42Vital Signs are the last 5 in the past 48 hours. 24 Hr Tmin: 99.0F (37.22c) at 07/20 00:00Weights are the last 5 in 60 days, plus initial. DateWt(kg)Wt(lb)Ht(cm)Ht(in)MethodBMIBSA 07/17 (initial) 72.73 160.00Estimated 26.71.83 39245.10 65.00Stated (no point of care glucose results charted in last 24 hours) Most Recent Scores: 07/20/18Glasgow Coma Score15 07/20/18Pain Intensity NRS (0-10)0 07/19/18[place] Fall Score15 07/19/18Braden Score20 Lines, Tubes, and Drains: 07/18/2018 20:17 Peripheral Lines: Forearm Left 20 gauge Over the needle catheter (no surgical procedures documented) Labs (Last four charted values) WBC 6.9(JUL 17)6.0(JUL 16) Hgb L 12.3(JUL 17)L 11.3(JUL 16) Hct L 38.6(JUL 17)L 36.2(JUL 16) Plt L 119(JUL 17)L 104(JUL 16) Na 137(JUL 17)138(JUL 17)139(JUL 16) K 4.8(JUL 17)4.8(JUL 17)3.7(JUL 16) CO2 C 41(JUL 17)C 40(JUL 17)C 43(JUL 16) Cl 95(JUL 17)L 94(JUL 17)97(JUL 16) Cr 0.82(JUL 17)0.93(JUL 17)0.91(JUL 16) BUN 22(JUL 17)22(JUL 17)21(JUL 16) Glucose Random H 109(JUL 17)H 109(JUL 17)H 120(JUL 16) Mg 1.9(JUL 17) Phos 2.7(JUL 17) Ca 8.9(JUL 17)9.0(JUL 17)L 8.4(JUL 16) PT 12.8(JUL 16) INR 0.98(JUL 16) PTT 29.2(JUL 16) Troponin <0.02(JUL 16) RADIOLOGY: ASSESSMENT & EXAM: HEENT:normocephalic, atraumatic Skin:no rash Chest: symmetrical expansion, mild wheezing ,no rales, no crackles, increased AP diameter, diminished air movement Heart: Regular rhythm, no murmurs Abdomen: Soft, nontender, bowel sounds present Ext: no edema RN CLINICAL DOCUMENTATION: alert and oriented, no focal neurological deficits DIAGNOSES & PROBLEMS: 1. Acute on chronic respiratory failure 2. Advanced COPD, exacerbation 3. HTN 4. HLD 5. Hep C 6. GERD PLAN & TREATMENT: Seen and examined. His COPD exacerbation is improving gradually. Agree with long-term facility placement Medications reviewed Scheduled Meds (14): 07/17/18 albuterol-ipratropium (albuterol-ipratropium 2.5-0.5 mg inhalation solution) 3 mL NEB RQ6H 07/17/18 amLODIPine 10 mg PO Daily 07/17/18 budesonide (Pulmicort Respules 0.5 mg/2 mL inhalation suspension) 0.5 mg INHALATION RBID 07/17/18 busPIRone 7.5 mg PO BID 07/17/18 docusate 100 mg PO BID 07/17/18 donepezil 5 mg PO Bedtime 07/17/18 famotidine (famotidine 20 mg oral tablet) 20 mg PO Daily 07/17/18 finasteride 5 mg PO Daily 07/17/18 losartan 50 mg PO Daily 07/17/18 multivitamin 1 tab PO Daily 07/20/18 predniSONE 40 mg PO Daily 07/17/18 senna 17.2 mg PO Bedtime 07/17/18 sertraline 200 mg PO Daily 07/17/18 trazodone 150 mg PO Bedtime Unscheduled Meds: None Extracted from: Title: Shortness of breath Author: Shabnammelisa Alex Date: 07/17/18 Critical Care Medicine Chief complaint: Shortness of breath History of present illness: 67 y.o male with a h/o advanced COPD, neuropathy, hep C, HTN, and HLD presented to the ER after pulling of his nasal cannula at the [facility]. He was cyanotic on arrival and placed on NIPPV for WOB. His ABG reveals normal pH with apco2 of 103. He is feeling much better and is off the BIPAP and conversant at this time. CT brain and CXR are both negative. Past medical history: as above Past family history: Father: High blood pressure Mother: High blood pressure Surgical history: Rotator cuff repair Social history: Alcohol Details: Past Tobacco Details: Use: Current every day smoker. Type: Cigarettes. Tobacco smoke exposure: Lives with someone who smokes. Did the Patient Smoke Cigarettes Anytime During the Last 365 Days? Yes. Cessation Counseling Provided? No. Details: Use: Former smoker. Type: Cigarettes. 40 year(s). Tobacco smoke exposure: None. Other Tobacco Frequency 1/2 pack per day. Did the Patient Smoke Cigarettes Anytime During the Last 365 Days? No. Cessation Counseling Provided? No. Medications: Medication List Active Medications Ordered acetaminophen: 650 mg, PO, Q6H, PRN: Pain 1-3/Temp > 100.4 F. albuterol-ipratropium: 3 mL, NEB, RQ6H. azithromycin: 250 mg, PO, [id number]. bisacodyl: 10 mg, WI, Daily, PRN: Constipation. Dextrose 50% in Water IV: 25 mL, IVP, PRN, PRN: Blood Glucose Results. Dextrose 50% in Water IV: 50 mL, IVP, PRN, PRN: Blood Glucose Results. docusate: 100 mg, PO, BID. glucagon: 1 mg, IM, PRN, PRN: Blood Glucose Results. melatonin: 3 mg, PO, Bedtime, PRN: Insomnia. methylPREDNISolone: 125 mg, IVP, ONCE. ondansetron: 4 mg, IVP, Q8H, PRN: Nausea & Vomiting. predniSONE: 60 mg, PO, Daily. senna: 2 tab, PO, Bedtime. sodium chloride: 10 mL, IVP, PRN, PRN: Line Flush. Documented acetaminophen-hydrocodone: 1 tab, PO, TID, 0 Refill(s). albuterol: 2.5 mg, 3 mL, NEB, TID, 0 Refill(s). albuterol: 2 puff, INHALATION, Q4H, PRN: for wheezing. amLODIPine: 10 mg, 1 tab, PO, Daily, 0 Refill(s). budesonide: 0.5 mg, 2 mL, NEB, RBID, 0 Refill(s). donepezil: 5 mg, 1 tab, PO, Bedtime, 0 Refill(s). famotidine: 20 mg, 1 tab, PO, Daily, 0 Refill(s). fluticasone-vilanterol: 1 puff, INHALATION, Daily, 0 Refill(s). LORazepam: 2 mg, 1 tab, PO, BID, 0 Refill(s). losartan: 50 mg, 1 tab, PO, Daily, 0 Refill(s). mirtazapine: 15 mg, 1 tab, PO, Bedtime, 0 Refill(s). predniSONE: 10 mg, 0.5 tab, PO, Daily, 0 Refill(s). sertraline: 200 mg, 2 tab, PO, Daily, 0 Refill(s). trazodone: 300 mg, 2 tab, PO, Bedtime, 0 Refill(s). Medications Inactivated in the Last 72 Hours No medications found. Review of systems: General: No fevers chills, weight loss, weakness. HEENT: No blurring of vision, sore throat, nasal congestion, epistaxis, tinnitus. Cardiovascular: No palpitations, chest pain, syncope/near syncope, dyspnea on exertion, paroxysmal nocturnal dyspnea Respiratory: shortness of breath, cough, pain with respiration, hemoptysis Gastrointestinal: Normal appetite, no hematemesis, vomiting, bloody stool, abdominal pain, diarrhea Genitourinary: No frequency, urgency, nocturia, hematuria or dysuria. Musculoskeletal: No arthralgias or myalgias. Dermatology: No swelling, bruising, contusions,abrasions, lymphangitis. Neurology: No headache, neck pain, numbness or tingling of the extremities. or weakness. Endocrine: No history of thyroid, diabetes or adrenal problems. Hematologic: No bleeding, petechiae,bruising. Allergy: No asthma, urticaria. Psychiatric: No confusion or depression Physical Exam VitalsTmp(F)[id number] 07/17 00:41----[id number]--- 07/16 23:57----[id number]--- 07/16 22:30----[id number]-----[id number]--- 07/16 22:15 96 45% 07/16 20:27----[id number] 4.0L/m 24 Hr Tmax: 98.8F (37.11c) at 07/16 19:35Vital Signs are the last 5 in the past 48 hours. Gen: no acute mild moderate sever distress, emaciated, toxic appearing HEENT: protecting airway, thyromegaly, neck supple, no thyromegaly, intubated, trach in place Neuro: alert and oriented, nonlateralizing, no motor or sensory deficits, sedated, unresponsive, somnolent, lethargy Cardio: S1S2 reg, no murmurs, irregularly irregular, tachycardic, bradycardic Pulm: CTAB, wheezing, rhonchi, diminished Abd: soft, normal abnormal bowel sounds, PEG in place, distended, peritoneal signs, tender to palpation Derm: no rash Ext: no edema, no cyanosis, no limb ischemia Labs (Last four charted values) WBC 6.0(JUL 16) Hgb L 11.3(JUL 16) Hct L 36.2(JUL 16) Plt L 104(JUL 16) Na 139(JUL 16) K 3.7(JUL 16) CO2 C 43(JUL 16) Cl 97(JUL 16) Cr 0.91(JUL 16) BUN 21(JUL 16) Glucose Random H 120(JUL 16) Ca L 8.4(JUL 16) PT 12.8(JUL 16) INR 0.98(JUL 16) PTT 29.2(JUL 16) Troponin <0.02(JUL 16) Radiology: CXR No chest radiographic evidence of acute cardiopulmonary disease. CT brain Age-related involutional changes with no acute intracranial abnormality. Impression: 1. Acute on chronic respiratory failure 2. Advanced COPD 3. HTN 4. HLD 5. Hep C 6. GERD Plan: IMU care supplemental oxygen prn NIPPV oral steroids BDs and inhaled corticosteroids prophylactic measures CCM time exclusive of procedures is: 32min Time was spent in reviewing, laboratory and radiographic data, in direct management of patient at bedside as well as coordination Requires critical care due to the acute impairment of vital organ systems and a high probability of imminent and life threatening deterioration. Extracted from: Title: History and Physical Author: Teofilo Quiroz Bhailalbhai Date: 07/17/18 Acute on chronic respiratory failure(J96.20) NIPPV, as needed, currently off bipap ABG - shows 7.31, PCO2 - 103, PO2 - 155, Cyanosis(R23.0) Ordered: Admit/Condition, 07/17/18 1:25:00 CDT, Status: Out Patient with Observation Services, IMU, Expected LOS: 1 Midnight, Antonio Zuniga MD, Admit Review/Approve Yes, Isolation: No Isolation/Standard Precautions, Hypercapnia | Cyanosis | Syncope Admit/Condition, 07/17/18 1:43:00 CDT, Status: Inpatient, IMU, Expected LOS: 2 Midnights, Antonio Zuniga MD, it Review/Approve Yes, Isolation: No Isolation/Standard Precautions, Cyanosis | Syncope | Hypercapnia Hypercapnia(R06.89) Ordered: Admit/Condition, 07/17/18 1:25:00 CDT, Status: Out Patient with Observation Services, IMU, Expected LOS: 1 Midnight, Antonio Zuniga MD, Admit MD Review/Approve Yes, Isolation: No Isolation/Standard Precautions, Hypercapnia | Cyanosis | Syncope Admit/Condition, 07/17/18 1:43:00 CDT, Status: Inpatient, IMU, Expected LOS: 2 Midnights, Antonio Zuniga MD, Admit Review/Approve Yes, Isolation: No Isolation/Standard Precautions, Cyanosis | Syncope | Hypercapnia Syncope(R55) Ordered: Admit/Condition, 07/17/18 1:25:00 CDT, Status: Out Patient with Observation Services, IMU, Expected LOS: 1 Midnight, Antonio Zuniga MD, it Review/Approve Yes, Isolation: No Isolation/Standard Precautions, Hypercapnia | Cyanosis | Syncope Admit/Condition, 07/17/18 1:43:00 CDT, Status: Inpatient, IMU, Expected LOS: 2 Midnights, Antonio Zuniga MD, Admit Review/Approve Yes, Isolation: No Isolation/Standard Precautions, Cyanosis | Syncope | Hypercapnia Syncope and cyanotic spells likely secondary to mis placed Nasal canula, . though given severe COPD,will treat as COPD exacerbation with ; prednisone, supplemental oxygen, zithromax, and duonebs. continue with his home inhalers scd IMU admission full code
--- OUTSIDE RECORDS SUMMARY | 2018-09-08 06:34 | XMS REPORT | Summary of Care ---
Author Organization Unknown Address Unknown Phone Unavailable Encounter SAUD Varner(JOYCE) [id number] Date(s): 06/23/14 - 06/26/14 [facility] [address] [place] [address]- Discharge Disposition: Home Physician Attending: Hoang Hernandez DO Physician Admitting: Hoang Hernandez DO Vital Signs 1 2 3 Most recent to oldest [Reference Range]: 165.1 cm (06/23/14 8:32 AM) Height 98.0 DegF (06/26/14 3:00 PM) 98.7 DegF (06/26/14 7:00 AM) 98.5 DegF (06/26/14 4:00 AM) Temperature Oral [96.4-99.1 DegF] 127/77 mmHg (06/26/14 3:00 PM) 127/68 mmHg (06/26/14 7:00 AM) 131/73 mmHg (06/26/14 4:00 AM) Blood Pressure [90-140/60-90 mmHg] 18 BRMIN (06/26/14 3:00 PM) 14 BRMIN (06/26/14 7:03 AM) 20 BRMIN (06/26/14 7:00 AM) Respiratory Rate [14-20 BRMIN] 92 bpm (06/26/14 3:00 PM) 82 bpm (06/26/14 7:00 AM) 77 bpm (06/26/14 4:00 AM) Peripheral Pulse Rate [60-100 bpm] 61.364 kg (06/23/14 5:20 PM) 61.364 kg (06/23/14 5:18 PM) 61.364 kg (06/23/14 8:32 AM) Weight 22.51 m2 (06/23/14 8:32 AM) Body Mass Index Problem List Condition Effective Dates Status Health Status Informant Asthma(Confirmed) Active COPD(Confirmed) Active Hypertension(Confirm Active ed) Allergies, Adverse Reactions, Alerts Substance Reaction Severity Status NSAIDs Active Vioxx Active Medications acetaminophen-hydrocodone 325 mg-10 mg oral tablet 1 tab, PO, Q4H, PRN Pain Score 1-5 Start Date: 06/23/14 Status: Ordered albuterol 0.083% inhalation solution 2.5 mg, 3.01 mL, Route: NEB, Drug form: SOLN, RQ2H, Dosing Weight 61.364, kg, VA N Wheezing, Priority: Routine, Start date: 06/23/14 10:33:00, Duration: 30 day, Stop date: 07/23/14 10:32:00 Notes: SEE RT DOCUMENTATION (Same as: Ania) Start Date: 06/23/14 Stop Date: 06/26/14 Status: Discontinued albuterol 0.083% inhalation solution 7.47 mg, Route: NEB, Drug form: SOLN, ONCE, Dosing Weight 61.364, kg, Priority: STAT, Start date: 06/23/14 9:04:00, Stop date: 06/23/14 9:04:00 Start Date: 06/23/14 Stop Date: 06/23/14 Status: Completed amLODIPine 10 mg, 2 tab, Route: PO, Drug form: TAB, Daily, Dosing Weight 61.364, kg, Start date: 06/25/14 9:00:00, Duration: 30 day, Stop date: 07/24/14 9:00:00 Notes: (Same as: Rory) Start Date: 06/25/14 Stop Date: 06/26/14 Status: Discontinued amLODIPine 10 mg oral tablet 10 mg=1 tab, PO, Daily Start Date: 06/23/14 Status: Ordered azithromycin 500 mg, 250 mL, Route: IVPB, Drug form: PDR/INJ, [id number], Dosing Weight 61.364, kg, Start date: 06/24/14 10:00:00, Duration: 30 day, Stop date: 07/23/14 10:00:0 0 Notes: Same as: Zithromax Start Date: 06/24/14 Stop Date: 06/23/14 Status: Canceled azithromycin 500 mg, Route: IVPB, ONCE, Dosing Weight 61.364, kg, Priority: STAT, Start date: 06/23/14 9:45:00, Stop date: 06/23/14 9:45:00 Start Date: 06/23/14 Stop Date: 06/23/14 Status: Completed benzonatate 100 mg, Route: PO, Drug form: CAP, TID, Dosing Weight 61.364, kg, PRN as needed for cough, Start date: 06/25/14 7:59:00, Duration: 30 day, Stop date: 07/25/14 7 :58:00 Start Date: 06/25/14 Stop Date: 06/25/14 Status: Discontinued benzonatate 100 mg oral capsule 100 mg=1 cap, PO, TID, PRN as needed for cough Start Date: 06/23/14 Status: Ordered cefTRIAXone + Sodium Chloride 0.9% IV 100 mL 1 gm, Route: IVPB, [id number], Dosing Weight 61.364, kg, Start date: 06/24/14 10:00 :00, Duration: 30 day, Stop date: 07/23/14 10:00:00 Notes: (Same As: Rocephin).Use with 100ml NS mini-bag PLUS and infuse over 30 mi n MEDICATION WASTE Product Size: 1000 mgProduct Wasted: ___ mg Start Date: 06/24/14 Stop Date: 06/23/14 Status: Canceled Dulera 200 mcg-5 mcg/inh inhalation aerosol 2 puff, INHALATION, BID Start Date: 06/23/14 Status: Ordered DuoNeb inhalation solution 3 ml, Route: INHALATION, Drug Form: SOLN, Dosing Weight 61.364, kg, QID, PRN Whe ezing, Start date: 06/23/14 10:16:00, Duration: 30 day, Stop date: 07/23/14 10:1 5:00 Notes: (Same as: Duoneb) Start Date: 06/23/14 Stop Date: 06/25/14 Status: Discontinued DuoNeb inhalation solution 3 ml, Route: INHALATION, Drug Form: SOLN, Dosing Weight 61.364, kg, RQID, Start date: 06/25/14 15:00:00, Duration: 30 day, Stop date: 07/25/14 11:00:00 Notes: (Same as: Duoneb) Start Date: 06/25/14 Stop Date: 06/26/14 Status: Discontinued ipratropium 0.5 mg, 2.5 mL, Route: NEB, Drug form: SOLN, Q20Min, Dosing Weight 61.364, kg, P riority: STAT, Start date: 06/23/14 9:04:00, Duration: 3 doses or times, Stop da te: 06/23/14 9:44:00 Notes: SEE RT DOCUMENTATION(Same as:Atrovent) Start Date: 06/23/14 Stop Date: 06/23/14 Status: Completed Levaquin 500 mg, 100 mL, Route: IVPB, Drug form: INJ, [id number], Dosing Weight 61.364, kg, Start date: 06/23/14 11:00:00, Duration: 30 day, Stop date: 07/22/14 11:00:00 Notes: (Same as:Levaquin) Start Date: 06/23/14 Stop Date: 06/26/14 Status: Discontinued Levaquin 500 mg oral tablet 500 mg=1 tab, PO, Q24H, # 4 tab, 0 Refill(s) Start Date: 06/26/14 Stop Date: 06/30/14 Status: Ordered losartan 50 mg, 1 tab, Route: PO, Drug form: TAB, Daily, Dosing Weight 61.364, kg, Start date: 06/25/14 9:00:00, Duration: 30 day, Stop date: 07/24/14 9:00:00 Notes: (Same as: Josi) Start Date: 06/25/14 Stop Date: 06/26/14 Status: Discontinued losartan 50 mg oral tablet 50 mg=1 tab, PO, Daily Start Date: 06/23/14 Status: Ordered Lovenox 40 mg, 0.4 mL, Route: SUB-Q, Drug form: INJ, [id number], Dosing Weight 61.364, kg, Start date: 06/25/14 14:00:00, Duration: 30 day, Stop date: 07/24/14 14:00:00 Notes: (Same as: Lovenox) Start Date: 06/25/14 Stop Date: 06/26/14 Status: Discontinued methylPREDNISolone SODium SUCCinate 20 mg, 0.5 mL, Route: IVP, Drug form: INJ, Q8H, Dosing Weight 61.364, kg, Start date: 06/23/14 16:00:00, Stop date: 07/23/14 8:00:00 Notes: (Same as:Solu-MEDROL, A-Methapred) Start Date: 06/23/14 Stop Date: 06/25/14 Status: Discontinued methylPREDNISolone SODium SUCCinate 125 mg, Route: IVP, ONCE, Dosing Weight 61.364, kg, Priority: STAT, Start date: 06/23/14 9:04:00, Stop date: 06/23/14 9:04:00 Start Date: 06/23/14 Stop Date: 06/23/14 Status: Completed nicotine 21 mg, 1 patch, Route: TOP, Drug form: ERFILM, Daily, Dosing Weight 61.364, kg, Start date: 06/25/14 14:00:00, Duration: 30 day, Stop date: 07/25/14 9:00:00 Notes: (Same as: Habitrol)"Remove old patch before application of new patch" Start Date: 06/25/14 Stop Date: 06/26/14 Status: Discontinued [place] 5/325 oral tablet 1 tab, Route: PO, Drug Form: TAB, Dosing Weight 61.364, kg, Q4H, PRN Pain Score 1-3, Start date: 06/23/14 10:17:00, Duration: 30 day, Stop date: 07/23/14 10:16: 00 Notes: (Same as: [place] 325/5) Do not exceed 4gm/day of acetaminophen. Start Date: 06/23/14 Stop Date: 06/26/14 Status: Discontinued nystatin 500,000 unit, 5 mL, Route: S&SWALLOW, Drug form: SUSP, QID, Dosing Weight 61.364, kg, Start date: 06/25/14 17:00:00, Duration: 30 day, Stop date: 07/25/14 13:00:00 Notes: (Same as:Mycostatin) Shake well. Start Date: 06/25/14 Stop Date: 06/26/14 Status: Discontinued nystatin 100,000 units/mL oral suspension 500,000 unit=5 mL, S&SWALLOW, QID, # 140 mL, 0 Refill(s) Start Date: 06/26/14 Stop Date: 07/03/14 Status: Ordered predniSONE 40 mg, 2 tab, Route: PO, Drug form: TAB, Daily, Dosing Weight 61.364, kg, Start date: 06/26/14 9:00:00, Duration: 30 day, Stop date: 07/25/14 9:00:00 Notes: Take with food. Start Date: 06/26/14 Stop Date: 06/26/14 Status: Discontinued predniSONE 20 mg oral tablet 40 mg=2 tab, PO, Daily, taper dose over 10 days. 40 mg po daily for 2 days 30 mg po daily for 2 days. 20 mg po daily for 3 days. 10 mg po daily for 3 day. Then d/c., # 20 tab, 0 Refill(s) Special Instructions: taper dose over 10 days.40 mg po daily for 2 days30 mg po daily for 2 days.20 mg po daily for 3 days.10 mg po daily for 3 day.Then d/c. Start Date: 06/26/14 Stop Date: 07/06/14 Status: Ordered predniSONE 20 mg oral tablet See Instructions, 2 tabs PO daily x 5 days. then 1 tab daily x 15 days; started 05/28/14 Special Instructions: 2 tabs PO daily x 5 days. then 1 tab daily x 15 days; star nedra 05/28/14 Start Date: 06/23/14 Stop Date: 06/26/14 Status: Discontinued ProAir HFA 90 mcg/inh inhalation aerosol with adapter 2 puff, INHALATION, Q4H, PRN for wheezing Start Date: 06/23/14 Status: Ordered Robitussin-AC oral syrup 10 mL, PO, Q4H, PRN Cough, # 120 mL, 0 Refill(s) Start Date: 06/26/14 Status: Ordered Robitussin-AC oral syrup 10 ml, Route: PO, Drug Form: SYRP, Dosing Weight 61.364, kg, Q4H, PRN Cough, Sta rt date: 06/25/14 10:51:00, Duration: 30 day, Stop date: 07/25/14 10:50:00 Notes: (Same As: Robitussin AC) Start Date: 06/25/14 Stop Date: 06/26/14 Status: Discontinued Rocephin 1 gm, Route: IVPB, Drug form: PDR/INJ, ONCE, Dosing Weight 61.364, kg, Priority: STAT, Start date: 06/23/14 9:45:00, Stop date: 06/23/14 9:45:00 Start Date: 06/23/14 Stop Date: 06/23/14 Status: Completed Solu-MEDROL 40 mg, 1 mL, Route: IVP, Drug form: INJ, Q12H, Dosing Weight 61.364, kg, Start d ate: 06/23/14 21:00:00, Duration: 30 day, Stop date: 07/23/14 9:00:00 Notes: (Same as:Solu-MEDROL, A-Methapred) Start Date: 06/23/14 Stop Date: 06/23/14 Status: Deleted Xopenex 3.75 mg, Route: NEB, ONCE, Dosing Weight 61.364, kg, Start date: 06/23/14 8:49:0 0, Stop date: 06/23/14 8:49:00, Special Instructions: Start Date: 06/23/14 Stop Date: 06/23/14 Status: Completed Zofran 4 mg, 2 mL, Route: IVP, Drug form: INJ, Q8H, Dosing Weight 61.364, kg, PRN as ne eded for nausea/vomiting, Priority: STAT, Start date: 06/23/14 10:16:00, Duratio n: 30 day, Stop date: 07/23/14 10:15:00 Notes: (Same as: Zofran) MEDICATION WASTE Product Size: 4 mgProduct Was nedra: ___ mg Start Date: 06/23/14 Stop Date: 06/26/14 Status: Discontinued Results ELECTROLYTES 1 2 3 Most recent to oldest [Reference Range]: 135 mEq/L (06/26/14 4:19 AM) 134 mEq/L *LOW* (06/25/14 4:34 AM) 132 mEq/L *LOW* (06/24/14 5:05 AM) Sodium Lvl [135-145 mEq/L] 4.6 mEq/L (06/26/14 4:19 AM) 5.0 mEq/L (06/25/14 4:34 AM) 4.6 mEq/L (06/24/14 5:05 AM) Potassium Lvl [3.5-5.1 mEq/L] 95 mEq/L (06/26/14 4:19 AM) 95 mEq/L (06/25/14 4:34 AM) 95 mEq/L (06/24/14 5:05 AM) Chloride Lvl [95-109 mEq/L] 36 mEq/L *HI* (06/26/14:19 AM) 34 mEq/L *HI* (06/25/14:34 AM) 32 mEq/L (06/24/14 5:05 AM) CO2 [24-32 mEq/L] 8.6 mEq/L *LOW* (06/26/14:19 AM) 10.0 mEq/L (06/25/14 4:34 AM) 9.6 mEq/L *LOW* (06/24/14 5:05 AM) AGAP [10.0-20.0 mEq/L] CHEM PANEL 1 2 3 Most recent to oldest [Reference Range]: 0.9 mg/dL (06/26/14 4:19 AM) 1.2 mg/dL (06/25/14 4:34 AM) 1.2 mg/dL (06/24/14 5:05 AM) Creatinine Lvl [0.5-1.4 mg/dL] 91 mL/min/1.73m2 1 *NA* (06/26/14 4:19 AM) 64 mL/min/1.73m2 2 *NA* (06/25/14 4:34 AM) 64 mL/min/1.73m2 3 *NA* (06/24/14 5:05 AM) eGFR 29 mg/dL *HI* (06/26/14 4:19 AM) 41 mg/dL *HI* (06/25/14 4:34 AM) 33 mg/dL *HI* (06/24/14 5:05 AM) BUN [7-22 mg/dL] 15 (06/23/14 8:52 AM) B/C Ratio [6-25] 91 mg/dL 4 (06/26/14 4:19 AM) 138 mg/dL 5 *HI* (06/25/14 4:34 AM) 160 mg/dL 6 *HI* (06/24/14 5:05 AM) Glucose Lvl [70-99 mg/dL] 7.5 g/dL (06/23/14 8:52 AM) Total Protein [6.4-8.4 g/dL] 3.6 g/dL (06/23/14 8:52 AM) Albumin Lvl [3.5-5.0 g/dL] 3.9 g/dL (06/23/14 8:52 AM) Globulin [2.0-4.0 g/dL] 0.9 (06/23/14 8:52 AM) A/G Ratio [0.7-1.6] 8.8 mg/dL (06/26/14 4:19 AM) 9.2 mg/dL (06/25/14 4:34 AM) 9.1 mg/dL (06/24/14 5:05 AM) Calcium Lvl [8.5-10.5 mg/dL] 3.0 mg/dL (06/25/14 4:34 AM) Phosphorus [2.5-4.5 mg/dL] 96 unit/L *HI* (06/23/14 8:52 AM) ALT [0-65 unit/L] 41 unit/L *HI* (06/23/14 8:52 AM) AST [0-37 unit/L] 70 unit/L (06/23/14 8:52 AM) Alk Phos [39-136 unit/L] 0.8 mg/dL (06/23/14 8:52 AM) Bili Total [0.2-1.3 mg/dL] 1.3 mMol/L (06/23/14 9:51 AM) Lactic Acid Lvl [0.5-2.2 mMol/L] 1Result Comment: The eGFR is calculated using [...] be mul tiplied by the estimated BMI. 4Interpretive Data: Adult reference range values reflect the clinical guidelines of the [place] [employer]. 5Interpretive Data: Adult reference range values reflect the clinical guidelines of the [place] [employer]. 6Interpretive Data: Adult reference range values reflect the clinical guidelines of the [place] [employer]. CARDIAC ENZYMES 1 2 3 Most recent to oldest [Reference Range]: 194 unit/L *HI* (06/23/14 9:41 PM) 174 unit/L (06/23/14 2:52 PM) 82 unit/L (06/23/14 8:52 AM) Total CK [12-191 unit/L] 16.4 ng/mL *HI* (06/23/14 9:41 PM) 10.0 ng/mL *HI* (06/23/14 2:52 PM) 4.2 ng/mL *HI* (06/23/14 8:52 AM) CK MB [0.5-3.6 ng/mL] 8.5 *HI* (06/23/14 9:41 PM) 5.7 *HI* (06/23/14 2:52 PM) 5.1 *HI* (06/23/14 8:52 AM) CK MB Index [0.0-2.5] <0.02 ng/mL (06/23/14 9:41 PM) <0.02 ng/mL (06/23/14 2:52 PM) <0.02 ng/mL (06/23/14 8:52 AM) Troponin-I [0.00-0.40 ng/mL] 53 pg/mL 7 (06/23/14 8:52 AM) BNP [<=100 pg/mL] 7Interpretive Data: Elevated results are in line with increasing severity of congestive heart failure. Minor elevations between 100 and 300 may be seen with Myocardial Ischemia, Sodium retaining drugs, and compensated/treated heart failure. URINE AND STOOL 1 2 3 Most recent to oldest [Reference Range]: Clear (06/23/14 11:54 AM) UA Turbidity [Clear] Jia *NA* (06/23/14 11:54 AM) UA Color 5.0 (06/23/14 11:54 AM) UA pH [5.0-8.0] 1.021 (06/23/14 11:54 AM) UA Spec Grav [<=1.030] 50 mg/dL *ABN* (06/23/14 11:54 AM) UA Glucose [Negative mg/dL] Negative (06/23/14 11:54 AM) UA Blood [Negative] Negative mg/dL *NA* (06/23/14 11:54 AM) UA Ketones [Negative mg/dL] 100 mg/dL *ABN* (06/23/14 11:54 AM) UA Protein [Negative mg/dL] 2.0 mg/dL *HI* (06/23/14 11:54 AM) UA Urobilinogen [0.1-1.0 mg/dL] Negative *NA* (06/23/14 11:54 AM) UA Bili [Negative] Negative (06/23/14 11:54 AM) UA Leuk Est [Negative] Negative (06/23/14 11:54 AM) UA Nitrite [Negative] 4 /HPF (06/23/14 11:54 AM) UA WBC [0-5 /HPF] Occasional /LPF *NA* (06/23/14 11:54 AM) UA Sq Epi [Few /LPF] Few /LPF *NA* (06/23/14 11:54 AM) UA Mucus [None Seen /LPF] IMMUNOLOGY 1 2 3 Most recent to oldest [Reference Range]: Negative *NA* (06/23/14 10:26 AM) Hep Bs Ag [Negative] Negative *NA* (06/23/14 10:26 AM) Hep B Core IgM [Negative] Negative *NA* (06/23/14 10:26 AM) Hep A IgM [Negative] Positive *NA* (06/23/14 10:26 AM) Hep C Ab HEMATOLOGY 1 2 3 Most recent to oldest [Reference Range]: 12.1 K/CMM *HI* (06/26/14 4:19 AM) 15.1 K/CMM *HI* (06/24/14 5:05 AM) 17.1 K/CMM *HI* (06/23/14 8:52 AM) WBC [3.7-10.4 K/CMM] 5.29 M/CMM (06/26/14 4:19 AM) 5.16 M/CMM (06/24/14 5:05 AM) 5.75 M/CMM (06/23/14 8:52 AM) RBC [4.70-6.10 M/CMM] 15.4 g/dL (06/26/14 4:19 AM) 15.2 g/dL (06/24/14 5:05 AM) 16.5 g/dL (06/23/14 8:52 AM) Hgb [14.0-18.0 g/dL] 47.6 % (06/26/14 4:19 AM) 46.7 % (06/24/14 5:05 AM) 51.4 % (06/23/14 8:52 AM) Hct [42.0-54.0 %] 89.9 fL (06/26/14:19 AM) 90.5 fL (06/24/14 5:05 AM) 89.5 fL (06/23/14:52 AM) MCV [80.0-94.0 fL] 29.0 pg (06/26/14:19 AM) 29.5 pg (06/24/14 5:05 AM) 28.7 pg (06/23/14:52 AM) MCH [27.0-31.0 pg] 32.3 g/dL (06/26/14:19 AM) 32.6 g/dL (06/24/14:05 AM) 32.1 g/dL (06/23/14:52 AM) MCHC [32.0-36.0 g/dL] 13.6 % (06/26/14:19 AM) 13.9 % (06/24/14 5:05 AM) 13.7 % (06/23/14 8:52 AM) RDW [11.5-14.5 %] 206 K/CMM (06/26/14:19 AM) 176 K/CMM (06/24/14 5:05 AM) 192 K/CMM (06/23/14:52 AM) Platelet [133-450 K/CMM] 7.3 fL *LOW* (06/26/14 4:19 AM) 7.3 fL *LOW* (06/24/14 5:05 AM) 7.2 fL *LOW* (06/23/14 8:52 AM) MPV [7.4-10.4 fL] 60.0 % (06/26/14 4:19 AM) 91.9 % *HI* (06/24/14 5:05 AM) 80.2 % *HI* (06/23/14 8:52 AM) Segs [45.0-75.0 %] 7.0 % (06/26/14 4:19 AM) Bands [0.0-11.0 %] 20.0 % (06/26/14 4:19 AM) 4.2 % *LOW* (06/24/14 5:05 AM) 9.7 % *LOW* (06/23/14 8:52 AM) Lymphocytes [20.0-40.0 %] 1.0 % *HI* (06/26/14 4:19 AM) Atypical Lymphs [<=0.0 %] 11.0 % (06/26/14 4:19 AM) 3.8 % (06/24/14 5:05 AM) 9.7 % (06/23/14 8:52 AM) Monocytes [2.0-12.0 %] 1.0 % (06/26/14 4:19 AM) 0.1 % (06/23/14 8:52 AM) Eosinophils [0.0-4.0 %] 0.1 % (06/24/14 5:05 AM) 0.3 % (06/23/14 8:52 AM) Basophils [0.0-1.0 %] 8.1 K/CMM (06/26/14 4:19 AM) 13.9 K/CMM *HI* (06/24/14 5:05 AM) 13.7 K/CMM *HI* (06/23/14 8:52 AM) Segs-Bands # [1.5-8.1 K/CMM] 2.5 K/CMM (06/26/14 4:19 AM) 0.6 K/CMM *LOW* (06/24/14 5:05 AM) 1.7 K/CMM (06/23/14 8:52 AM) Lymphocytes # [1.0-5.5 K/CMM] 1.3 K/CMM *HI* (06/26/14 4:19 AM) 0.6 K/CMM (06/24/14 5:05 AM) 1.7 K/CMM *HI* (06/23/14 8:52 AM) Monocytes # [0.0-0.8 K/CMM] 0.1 K/CMM (06/26/14 4:19 AM) Eosinophils # [0.0-0.5 K/CMM] 0.1 K/CMM (06/23/14 8:52 AM) Basophils # [0.0-0.2 K/CMM] Normal (06/26/14 4:19 AM) RBC Morph Normal (06/26/14 4:19 AM) Plt Morph Immunizations No data available for this section Procedures Procedure Date Related Diagnosis Body Site Rotator cuff repair Social History Social History Type Response Smoking Status Current every day smoker; Type: Cigarettes; Number of years: 40; Exposure to Tobacco Smoke None; Other Tobacco Frequency 1/2 pack per day; Cigarette Smoking Last 365 Days No; Reg Smoking Cessation Counseling No Assessment and Plan Extracted from: Title: Clinical Document Author: Hoang Hernandez DO Date: 06/25/14 Progress Daily [facility] SUBJECTIVE Pt is feeling well and wants to go home. denies chest pain or SOB on N/C OBJECTIVE Vital Signs (last 24 hrs) Last Charted Minimum Maximum Temp97.6 (JUN 25 08:00)97.6 (JUN 25 08:00)99.1 (JUN 24 16:00) Heart Rate95 (JUN 25 11:00)74 (JUN 25 09:00)H 105 (JUN 24 16:00) Resp Rate H 27 (JUN 25 11:00)L 13 (JUN 24 22:00)H 27 (JUN 24 19:00) SBPH 148 (JUN 25 11:00)97 (JUN 24 17:00)H 158 (JUN 24 23:00) DBP76 (JUN 25 11:00)L 59 (JUN 25 01:00)H 112 (JUN 25 06:00) Labs (Last four charted values) WBC H 15.1(JUN 24)H 17.1(JUN 23) Hgb 15.2(JUN 24)16.5(JUN 23) Hct 46.7(JUN 24)51.4(JUN 23) Plt 176(JUN 24)192(JUN 23) Na L 134(JUN 25)L 132(JUN 24)136(JUN 23) K 5.0(JUN 25)4.6(JUN 24)4.1(JUN 23) CO2 H 34(JUN 25)32(JUN 24)32(JUN 23) Cl 95(JUN 25)95(JUN 24)99(JUN 23) Cr 1.2(JUN 25)1.2(JUN 24)1.1(JUN 23) BUN H 41(JUN 25)H 33(JUN 24)17(JUN 23) Glucose Random H 138(JUN 25)H 160(JUN 24)H 111(JUN 23) Phos 3.0(JUN 25) Ca 9.2(JUN 25)9.1(JUN 24)9.1(JUN 23) Troponin <0.02(JUN 23)<0.02(JUN 23)<0.02(JUN 23) CK MB H 16.4(JUN 23)H 10.0(JUN 23)H 4.2(JUN 23) Total CK H 194(JUN 23)174(JUN 23)82(JUN 23) Input/Output RecordInOutBal 06/623hr Tot 100 0 100 06/523hr Tot [id number] ASSESSMENT & EXAM Gen. Pt is AOX4 in no acute distress HEET: Normocephalic, nontraumatic. NECK: Supple, no JVD or Lymphadenopathy LUNGS: mild wheezing with decrease air movement HEART: S1, S2.RRR with no murmurs ABDOMEN: Soft, NT/ND with good BS CENTRAL NERVOUS SYSTEM: Patient moving all extremities grossly well. LOWER EXTREMITIES: No C/C/E PLAN & TREATMENT Pt admitted with acute COPD exacerbaton -Appreciated pulm consult -C/w steroids and ABX -Will transfer to the floor DIAGNOSES & PROBLEMS Acute COPD exacerbation Acuet bronchitis Bronchial PNA tachycardia HCV Elevated liver enzymes Scheduled Meds (4):amLODIPine, levofloxacin (Levaquin), losartan, methylPREDNISolone (methylPREDNISolone SODium SUCCinate) Unscheduled Meds: None PRN Meds (5):acetaminophen-hydrocodone ([place] 5/325 oral tablet), albuterol- ipratropium (DuoNeb inhalation solution), albuterol (albuterol 0.083% inhalation solution), codeine-guaiFENesin (Robitussin-AC oral syrup), ondansetron (Zofran) One Time Meds: None Continuous Infusions: None
--- OUTSIDE RECORDS SUMMARY | 2018-09-08 06:34 | XMS REPORT | Summary of Care ---
Author Author [facility] Organization [facility] Address Unknown Phone Unavailable Encounter SAUD Varner(JOYCE) [id number] Date(s): 12/05/14 - 01/10/15 [facility] [id number] [place] [address]- Final: Discharge Disposition: Jail Care Attending Physician: Yoshi Fernandez MD Admitting Physician: Yoshi Fernandez MD Vital Signs 1 2 3 Most recent to oldest [Reference Range]: 165 cm (12/05/14 4:00 PM) 165 cm (12/05/14 4:00 PM) 165.1 cm (12/05/14 6:00 AM) Height 98.5 DegF (01/10/15 4:00 AM) 98.2 DegF (01/10/15 12:00 AM) 98.1 DegF (01/09/15 8:00 PM) Temperature Oral [96.4-99.1 DegF] 152/89 mmHg *HI* (01/10/15 3:00 PM) 155/97 mmHg *HI* (01/10/15 2:00 PM) 149/92 mmHg *HI* (01/10/15 1:00 PM) Blood Pressure [90-140/60-90 mmHg] 28 BRMIN *HI* (01/10/15 3:00 PM) 23 BRMIN *HI* (01/10/15 2:00 PM) 22 BRMIN *HI* (01/10/15 1:00 PM) Respiratory Rate [14-20 BRMIN] 138 bpm *HI* (12/05/14 7:12 AM) 142 bpm *HI* (12/05/14 6:15 AM) 148 bpm *HI* (12/05/14 6:00 AM) Peripheral Pulse Rate [60-100 bpm] 60 kg (12/05/14 4:00 PM) 60 kg (12/05/14 4:00 PM) 59.091 kg (12/05/14 6:00 AM) Weight 22.04 m2 (12/05/14 4:00 PM) 22.04 m2 (12/05/14 4:00 PM) 21.68 m2 (12/05/14 6:00 AM) Body Mass Index Problem List Condition Effective Dates Status Health Status Informant Asthma(Confirmed) Active COPD(Confirmed) Active Hepatitis Active C(Confirmed) Hypertension(Confirm Active ed) Smoker(Confirmed) Active Allergies, Adverse Reactions, Alerts Substance Reaction Severity Status chlorhexidine containing Active compounds NSAIDs Active Vioxx Active Medications acetaminophen 650 mg, 2 tab, Route: PO, Drug form: TAB, Q4H, Dosing Weight 59.091, kg, PRN Tim n 1-3/Temp > 100.4 F, Start date: 12/05/14 9:21:00, Duration: 30 day, Stop date: 01/04/15 9:20:00 Notes: Do not exceed 4 gm/day. (Same as: Tylenol) Start Date: 12/05/14 Stop Date: 12/07/14 Status: Discontinued acetaminophen PO, Q4H, PRN Pain 1-3/Temp > 100.4 F, 0 Refill(s) Start Date: 01/10/15 Status: Ordered acetaminophen 160 mg/5 mL oral liquid 650 mg, 20.3 mL, Route: PO, Drug form: LIQ, Q4H, Dosing Weight 60, kg, PRN Pain 1-3/Temp > 100.4 F, Start date: 12/18/14 15:46:00, Duration: 30 day, Stop date: 01/17/15 15:45:00 Notes: Max [id number]=9866ta/day (4 gm/day). (Same as: Tylenol) Start Date: 12/18/14 Stop Date: 01/06/15 Status: Discontinued albumin human 25% intravenous solution 25 gm, 100 mL, Route: IVPB, Drug form: INJ, ONCE, Dosing Weight 60, kg, Start da te: 01/03/15 9:00:00, Stop date: 01/03/15 9:00:00 Notes: Lot #: Mfg: (Same as: Plasbumin-25)"blood pr oduct derivative" MEDICATION WASTE Product Size: 25 gmProduct Wasted: ___ gm Start Date: 01/03/15 Stop Date: 01/03/15 Status: Completed albumin human 25% intravenous solution 12.5 gm, 50 mL, Route: IVPB, Drug form: INJ, Q12H, Dosing Weight 60, kg, Start d ate: 12/22/14 21:00:00, Stop date: 01/22/15 9:00:00 Notes: Lot #: Mfg: (Same as: Plasbumin-25)"blood pr oduct derivative" MEDICATION WASTE Product Size: 25 gmProduct Wasted: 12.5 gm Start Date: 12/22/14 Stop Date: 12/25/14 Status: Discontinued albumin human 25% intravenous solution 12.5 gm, 50 mL, Route: IVPB, Drug form: INJ, ONCE, Dosing Weight 60, kg, Start d ate: 12/23/14 15:28:00, Stop date: 12/23/14 15:28:00 Notes: Lot #: Mfg: (Same as: Plasbumin-25)"blood pr oduct derivative" MEDICATION WASTE Product Size: 25 gmProduct Wasted: ___ gm Start Date: 12/23/14 Stop Date: 12/23/14 Status: Completed albuterol-ipratropium 2.5-0.5 mg inhalation solution 3 mL, Route: NEB, Drug Form: SOLN, Dosing Weight 59.091, kg, PRN, PRN Shortness of breath, Routine, Start date: 12/05/14 7:21:00, Duration: 30 day, Stop date: 04/05/14 6:20:00 Notes: (Same as: Duonenoni) Start Date: 12/05/14 Stop Date: 01/06/15 Status: Discontinued albuterol-ipratropium 2.5-0.5 mg inhalation solution 3 mL, NEB, RQID, PRN as needed for shortness of breath or wheezing, 0 Refill(s) Start Date: 01/10/15 Status: Ordered albuterol-ipratropium 2.5-0.5 mg inhalation solution 3 mL, Route: NEB, Drug Form: SOLN, Dosing Weight 59.091, kg, RQID, STAT, Start d ate: 12/05/14 6:19:00, Duration: 30 day, Stop date: 02/02/15 19:00:00 Notes: (Same as: Duoneb) Start Date: 12/05/14 Stop Date: 01/06/15 Status: Discontinued Ancef 2 gm, Route: IVPB, ONCE, Dosing Weight 60, kg, Start date: 12/19/14 15:17:00, Du ration: 1 doses or times, Stop date: 12/19/14 15:17:00, Surgical Prophylaxis Onl y; For patients < 120 kg Start Date: 12/19/14 Stop Date: 12/19/14 Status: Completed Ancef 2 gm, 100 mL, Route: IV, Drug form: INJ, ONCE, Dosing Weight 60, kg, Start date: 12/19/14 18:17:00, Stop date: 12/19/14 18:17:00 Notes: Same as: Ancef Start Date: 12/19/14 Stop Date: 12/19/14 Status: Completed Ativan 0.5 mg, 1 tab, Route: PO, Drug form: TAB, BID, Dosing Weight 60, kg, Start date: 01/07/15 17:00:00, Duration: 30 day, Stop date: 02/06/15 9:00:00 Notes: (Same as: Ativan) Start Date: 01/07/15 Stop Date: 01/10/15 Status: Discontinued Ativan 0.5 mg, 0.25 mL, Route: IVP, Drug form: INJ, ONCE, Dosing Weight 60, kg, PRN Anx iety, Priority: NOW, Start date: 12/31/14 18:52:00 Notes: (Same as: Ativan) Start Date: 12/31/14 Stop Date: 01/06/15 Status: Discontinued Ativan 0.5 mg, Route: IV, Drug form: INJ, ONCE, Dosing Weight 59.091, kg, Priority: STA T, Start date: 12/05/14 6:58:00, Stop date: 12/05/14 6:58:00 Start Date: 12/05/14 Stop Date: 12/05/14 Status: Completed Ativan 0.5 mg, Route: IV, ONCE, Dosing Weight 59.091, kg, Start date: 12/05/14 11:36:00 , Stop date: 12/05/14 11:36:00 Start Date: 12/05/14 Stop Date: 12/05/14 Status: Completed Ativan 0.5 mg, 0.25 mL, Route: IVP, Drug form: INJ, ONCE, Dosing Weight 60, kg, PRN Anx iety, Priority: Routine, Start date: 12/31/14 18:52:00 Notes: (Same as: Ativan) Start Date: 12/31/14 Stop Date: 01/10/15 Status: Discontinued Ativan 0.5 mg, Route: IV, ONCE, Dosing Weight 59.091, kg, Start date: 12/05/14 11:47:00 , Stop date: 12/05/14 11:47:00 Start Date: 12/05/14 Stop Date: 12/05/14 Status: Completed Ativan 0.5 mg, 1 tab, Route: PEG, Drug form: TAB, TID, Dosing Weight 60, kg, PRN Anxiet y, Start date: 01/06/15 8:50:00, Stop date: 01/31/15 11:36:00 Notes: (Same as: Ativan) Start Date: 01/06/15 Stop Date: 01/10/15 Status: Discontinued Azactam + Sodium Chloride 0.9% IV 100 mL 1 gm, Route: IVPB, Q8H, Dosing Weight 60, kg, Start date: 12/24/14 0:00:00, Dura tion: 30 day, Stop date: 01/22/15 16:00:00 Notes: (Same As: Azactam) Start Date: 12/24/14 Stop Date: 12/27/14 Status: Discontinued azithromycin 500 mg, Route: IVPB, ONCE, Dosing Weight 59.091, kg, Priority: STAT, Start date: 12/05/14 6:54:00, Stop date: 12/05/14 6:54:00 Start Date: 12/05/14 Stop Date: 12/05/14 Status: Voided With Results aztreonam + Sodium Chloride 0.9% IV 100 mL 1 gm, Route: IVPB, ABXQ8H, Dosing Weight 60, kg, Start date: 12/29/14 19:00:00, Duration: 30 day, Stop date: 01/28/15 11:00:00 Notes: (Same As: Azactam) Start Date: 12/29/14 Stop Date: 12/29/14 Status: Canceled aztreonam + Sodium Chloride 0.9% IV 100 mL 1 gm, Route: IVPB, Drug form: INJ, ABXQ8H, Dosing Weight 60, kg, Start date: 03/05 18:00:00, Duration: 30 day, Stop date: 01/30/15 10:00:00 Notes: (Same As: Azactam) Start Date: 12/31/14 Stop Date: 01/04/15 Status: Discontinued balsam Mckinley/castor oil/trypsin topical spray 1 appl, TOP, Daily, 0 Refill(s) Start Date: 01/10/15 Status: Ordered Benadryl 12.5 mg, 0.25 mL, Route: IVP, Drug form: INJ, ONCE, Dosing Weight 60, kg, Priori ty: NOW, Start date: 12/31/14 18:52:00, Stop date: 12/31/14 18:52:00 Notes: (Same as: Benadryl) Start Date: 12/31/14 Stop Date: 12/31/14 Status: Completed Benadryl 12.5 mg, 0.25 mL, Route: IVP, Drug form: INJ, Q6H, Dosing Weight 60, kg, PRN as needed for itching, Start date: 01/06/15 8:40:00, Stop date: 01/31/15 11:38:00 Notes: (Same as: Benadryl) Start Date: 01/06/15 Stop Date: 01/10/15 Status: Discontinued Benadryl 12.5 mg, 0.25 mL, Route: IVP, Drug form: INJ, Q6H, Dosing Weight 60, kg, PRN as needed for itching, Start date: 01/01/15 11:39:00, Duration: 30 day, Stop date: 01/31/15 11:38:00 Notes: (Same as: Benadryl) Start Date: 01/01/15 Stop Date: 01/06/15 Status: Discontinued Beneprotein 7 gm pkt 1 pkt, Route: T FEED, Drug Form: PWDR, Dosing Weight 60, kg, TID-Before Meals, S tart date: 01/06/15 8:55:00, Stop date: 01/31/15 11:30:00 Notes: (Same as: Beneprotein) Start Date: 01/06/15 Stop Date: 01/09/15 Status: Discontinued Beneprotein 7 gm pkt 1 pkt, Route: T FEED, Drug Form: PWDR, Dosing Weight 60, kg, TID-Before Meals, S tart date: 01/01/15 16:30:00, Duration: 30 day, Stop date: 01/31/15 11:30:00 Notes: (Same as: Beneprotein) Start Date: 01/01/15 Stop Date: 01/06/15 Status: Discontinued bumetanide 10 mg + Sodium Chloride 0.9% (titrate) 60 mL 60 mL, Rate: 1 ml/hr, Infuse over: 100 hr, Dosing Weight 60, kg, Route: IV, Tota l Volume: 100 mL, Start Date: 12/08/14 12:52:00, Duration: 30 day, Stop date: 12:51:00, Replace Every: 24 hr Notes: (Same As: Bumex) Start Date: 12/08/14 Stop Date: 12/11/14 Status: Voided With Results calcium carbonate 500 mg (200 mg elemental calcium) oral tablet 500 mg, 1 tab, Route: PO, Drug form: CHEWTAB, PRN, Dosing Weight 60, kg, PRN Abn ormal Lab Result, FOR ICU USE ONLY, Start date: 12/09/14 12:27:00, Duration: 30 day, Stop date: 02/07/15 11:26:00 Notes: (Same As: Tummarc)Calcium Carbonate 500 cy=810 mg elemental calcium Dose=_ mg calcium carbonate ( mg elemental calcium) Start Date: 12/09/14 Stop Date: 01/06/15 Status: Discontinued calcium carbonate 500 mg (200 mg elemental calcium) oral tablet 1,000 mg, 2 tab, Route: PO, Drug form: CHEWTAB, PRN, Dosing Weight 60, kg, PRN A bnormal Lab Result, FOR ICU USE ONLY, Start date: 12/09/14 12:27:00, Duration: 3 0 day, Stop date: 02/07/15 11:26:00 Notes: (Same As: Tums)Calcium Carbonate 500 pf=377 mg elemental calcium Dose=_ mg calcium carbonate ( mg elemental calcium) Start Date: 12/09/14 Stop Date: 01/06/15 Status: Discontinued calcium chloride + Sodium Chloride 0.9% IV 100 mL 2,000 mg, 20 mL, Route: IVPB, Drug form: INJ, ONCE, Dosing Weight 60, kg, Start date: 12/06/14 19:16:00, Stop date: 12/06/14 19:16:00 Start Date: 12/06/14 Stop Date: 12/06/14 Status: Completed calcium chloride + Sodium Chloride 0.9% IV 100 mL 1,000 mg, 10 mL, Route: IVPB, Drug form: INJ, ONCE, Dosing Weight 60, kg, Start date: 12/07/14 6:49:00, Stop date: 12/07/14 6:49:00 Start Date: 12/07/14 Stop Date: 12/07/14 Status: Completed calcium gluconate + Sodium Chloride 0.9% IV 40 mL 1 gm, 10 mL, Route: IVPB, PRN, Dosing Weight 60, kg, PRN Abnormal Lab Result, St art date: 01/06/15 8:39:00, Stop date: 02/07/15 11:26:00, FOR ICU USE ONLY Start Date: 01/06/15 Stop Date: 01/10/15 Status: Discontinued calcium gluconate + Sodium Chloride 0.9% IV 40 mL 1 gm, 10 mL, Route: IVPB, PRN, Dosing Weight 60, kg, PRN Abnormal Lab Result, St art date: 12/09/14 12:27:00, Duration: 30 day, Stop date: 02/07/15 11:26:00, FOR ICU USE ONLY Start Date: 12/09/14 Stop Date: 01/06/15 Status: Discontinued ceFAZolin 1 gm, 100 mL, Route: IVPB, Drug form: INJ, ONCALL, Dosing Weight 60, kg, Start d ate: 12/18/14 19:00:00, Duration: 30 day, Stop date: 01/17/15 18:59:00, 60 minut es before procedure (for patients < 70 kg) Start Date: 12/18/14 Stop Date: 12/27/14 Status: Discontinued cefTRIAXone + Sodium Chloride 0.9% IV 100 mL 1 gm, Route: IVPB, ONCE, Dosing Weight 59.091, kg, Priority: STAT, Start date: 0 12/05/14 6:54:00, Stop date: 12/05/14 6:54:00 Notes: (Same As: Rocephin).Use with 100ml NS mini-bag PLUS and infuse over 30 mi n MEDICATION WASTE Product Size: 1000 mgProduct Wasted: ___ mg Start Date: 12/05/14 Stop Date: 12/05/14 Status: Completed cephalexin 500 mg oral capsule 500 mg=1 cap, PO, QID, # 20 cap, 0 Refill(s) Start Date: 12/05/14 Stop Date: 01/10/15 Status: Discontinued D5W 1,000 mL 1,000 mL, Rate: 100 ml/hr, Infuse over: 10 hr, Route: IV, Dosing Weight 60 kg, T otal Volume: 1,000, Start date: 12/13/14 16:44:00, Duration: 2 doses or times, S top date: 12/14/14 12:43:00 Start Date: 12/13/14 Stop Date: 12/14/14 Status: Completed D5W 1,000 mL 1,000 mL, Rate: 150 ml/hr, Infuse over: 6.7 hr, Route: IV, Dosing Weight 60 kg, Total Volume: 1,000, Start date: 12/14/14 13:02:00, Duration: 30 day, Stop date: 01/13/15 13:01:00 Start Date: 12/14/14 Stop Date: 12/16/14 Status: Discontinued D5W 1,000 mL 1,000 mL, Rate: 100 ml/hr, Infuse over: 10 hr, Route: IV, Dosing Weight 60 kg, T otal Volume: 1,000, Start date: 12/12/14 14:07:00, Duration: 2 doses or times, S top date: 12/13/14 10:06:00 Start Date: 12/12/14 Stop Date: 12/13/14 Status: Completed D5W 1,000 mL 1,000 mL, Rate: 75 ml/hr, Infuse over: 13.3 hr, Route: IV, Dosing Weight 60 kg, Total Volume: 1,000, Start date: 12/30/14 9:17:00, Duration: 1 doses or times, S top date: 12/30/14 22:34:00 Start Date: 12/30/14 Stop Date: 12/30/14 Status: Completed D5W 1/2NS + KCL 20mEq/L 1000ml (Premix) 1,000 mL 1,000 mL, Rate: 75 ml/hr, Infuse over: 13.3 hr, Route: IV, Dosing Weight 60 kg, Total Volume: 1,000, Start date: 12/27/14 11:46:00, Duration: 1 doses or times, Stop date: 12/28/14 1:03:00 Start Date: 12/27/14 Stop Date: 12/28/14 Status: Completed D5W 1/4NS 1,000 mL 1,000 mL, Rate: 100 ml/hr, Infuse over: 10 hr, Route: IV, Dosing Weight 60 kg, T otal Volume: 1,000, Start date: 12/28/14 11:06:00, Duration: 3 doses or times, S top date: 12/29/14 17:05:00 Start Date: 12/28/14 Stop Date: 12/28/14 Status: Completed Dextrose 5% in Water IV 1,000 mL 1,000 mL, Rate: 40 ml/hr, Infuse over: 25 hr, Route: IV, Dosing Weight 60 kg, To peg Volume: 1,000, Start date: 12/11/14 6:22:00, Duration: 1 doses or times, Sto p date: 12/12/14 7:21:00 Start Date: 12/11/14 Stop Date: 12/11/14 Status: Completed Dextrose 50% Syringe 25 gm, 50 mL, Route: IVP, Drug Form: INJ, Dosing Weight 60, kg, PRN, PRN Blood G lucose Results, Start date: 12/13/14 3:35:00, Duration: 30 day, Stop date: 02/11 2:34:00 Start Date: 12/13/14 Stop Date: 01/06/15 Status: Discontinued Dextrose 50% Syringe 12.5 gm, 25 mL, Route: IVP, Drug Form: INJ, Dosing Weight 60, kg, PRN, PRN Blood Glucose Results, Start date: 12/13/14 3:35:00, Duration: 30 day, Stop date: 2:34:00 Start Date: 12/13/14 Stop Date: 01/06/15 Status: Discontinued Dextrose 50% Syringe 25 gm, 50 mL, Route: IVP, Drug Form: INJ, Dosing Weight 60, kg, PRN, PRN Blood G lucose Results, Start date: 01/06/15 8:39:00, Stop date: 02/11/15 2:34:00 Start Date: 01/06/15 Stop Date: 01/10/15 Status: Discontinued Dextrose 50% Syringe 12.5 gm, 25 mL, Route: IVP, Drug Form: INJ, Dosing Weight 60, kg, PRN, PRN Blood Glucose Results, Start date: 01/06/15 8:39:00, Stop date: 02/11/15 2:34:00 Start Date: 01/06/15 Stop Date: 01/10/15 Status: Discontinued Diamox 250 mg, Route: IVP, Drug form: PDR/INJ, BID, Dosing Weight 60, kg, Start date: 1 17:00:00, Duration: 2 day, Stop date: 01/11/15 9:00:00 Notes: (Same as: Diamox) Start Date: 01/09/15 Stop Date: 01/10/15 Status: Discontinued Diamox 250 mg, Route: IVP, Drug form: PDR/INJ, Daily, Dosing Weight 60, kg, Start date: 01/09/15 9:00:00, Duration: 2 day, Stop date: 01/10/15 9:00:00 Notes: (Same as: Diamox) Start Date: 01/09/15 Stop Date: 01/09/15 Status: Discontinued Diflucan 200 mg, 100 mL, Route: IVPB, Drug form: INJ, [id number], Dosing Weight 60, kg, Star t date: 12/11/14 9:00:00, Duration: 30 day, Stop date: 01/09/15 9:00:00 Notes: (Same as: Diflucan) Do not refrigerate Start Date: 12/11/14 Stop Date: 12/12/14 Status: Discontinued Diflucan 400 mg, 200 mL, Route: IVPB, Drug form: INJ, [id number], Dosing Weight 60, kg, Star t date: 12/23/14 19:00:00, Duration: 30 day, Stop date: 01/21/15 19:00:00 Notes: (Same as: Diflucan) Start Date: 12/23/14 Stop Date: 12/31/14 Status: Discontinued diphenhydrAMINE 50 mg/mL injectable solution 12.5 mg=0.25 mL, IVP, Q6H, PRN as needed for itching, 0 Refill(s) Start Date: 01/10/15 Status: Ordered Dulera 100 mcg-5 mcg/inh inhalation aerosol 2 puff, INHALATION, BID, 0 Refill(s) Start Date: 12/05/14 Stop Date: 01/10/15 Status: Discontinued DuoNeb inhalation solution 3 mL, Route: NEB, Drug Form: SOLN, Dosing Weight 59.091, kg, RQID, PRN as needed for shortness of breath or wheezing, Routine, Start date: 01/07/15 10:13:00, St op date: 02/06/15 10:12:00 Notes: (Same as: Duoneb) Start Date: 01/07/15 Stop Date: 01/10/15 Status: Discontinued DuoNeb inhalation solution 3 mL, Route: NEB, Drug Form: SOLN, Dosing Weight 59.091, kg, RQID, Routine, Star t date: 01/06/15 8:40:00, Stop date: 02/02/15 19:00:00 Notes: (Same as: Duoneb) Start Date: 01/06/15 Stop Date: 01/07/15 Status: Discontinued DuoNeb inhalation solution 3 mL, Route: NEB, Drug Form: SOLN, Dosing Weight 59.091, kg, PRN, PRN Shortness of breath, Routine, Start date: 01/06/15 8:35:00, Stop date: 02/03/15 6:20:00 Notes: (Same as: Duoneb) Start Date: 01/06/15 Stop Date: 01/10/15 Status: Discontinued enoxaparin 40 mg/0.4 mL subcutaneous solution 40 mg=0.4 mL, SUB-Q, [id number], 0 Refill(s) Start Date: 01/10/15 Status: Ordered etomidate 20 mg, Route: IV, ONCE, Dosing Weight 59.091, kg, Start date: 12/05/14 11:53:00, Stop date: 12/05/14 11:53:00 Start Date: 12/05/14 Stop Date: 12/05/14 Status: Completed fentaNYL 25 microgram, 0.5 mL, Route: IV, Drug form: INJ, Q4H, Dosing Weight 59.091, kg, PRN Pain Score 4-6, Start date: 12/05/14 10:38:00, Duration: 30 day, Stop date: 01/04/15 10:37:00 Notes: (Same as: Sublimaze) Preservative free. Start Date: 12/05/14 Stop Date: 12/10/14 Status: Discontinued fentaNYL 25 microgram, 0.5 mL, Route: IV, Drug form: INJ, Q2H, Dosing Weight 60, kg, PRN Pain Score 1-5, Start date: 12/10/14 6:13:00, Duration: 30 day, Stop date: 02/08 6:12:00 Notes: (Same as: Sublimaze) Preservative free. Start Date: 12/10/14 Stop Date: 01/06/15 Status: Discontinued fentaNYL 1,250 microgram 225 mL, Rate: Titrate, Dosing Weight 60, kg, Route: IV, Total Volume: 250, Start Date: 12/10/14 12:11:00, Duration: 30 day, Stop date: 01/09/15 12:10:00, Replace Every: 24 hr Notes: Concentration: 5 microgram / ml Start Date: 12/10/14 Stop Date: 12/24/14 Status: Discontinued fentaNYL 1000 mcg in 20 mL (titrate) IV 1,250 microgram 1,250 microgram, 250 mL, Rate: Titrate, Dosing Weight 59.091, kg, Route: IV, Tot al Volume: 250, Start Date: 12/05/14 11:54:00, Duration: 30 day, Stop date: 12/20 09/03 11:53:00, Replace Every: 24 hr Notes: Concentration: 5 microgram / ml Start Date: 12/05/14 Stop Date: 12/09/14 Status: Discontinued Flagyl 500 mg, 100 mL, Route: IVPB, Drug form: INJ, [id number], Dosing Weight 60, kg, Start date: 12/29/14 19:00:00, Duration: 30 day, Stop date: 01/28/15 11:00:00 Notes: (Same as: Flagyl) Avoid alcohol. Start Date: 12/29/14 Stop Date: 12/30/14 Status: Discontinued Flagyl 500 mg, 100 mL, Route: IVPB, Drug form: INJ, [id number], Dosing Weight 60, kg, Start date: 12/31/14 18:00:00, Duration: 30 day, Stop date: 01/30/15 10:00:00 Notes: (Same as: Flagyl) Avoid alcohol. Start Date: 12/31/14 Stop Date: 01/03/15 Status: Discontinued Flagyl 500 mg, 100 mL, Route: IVPB, Drug form: INJ, [id number], Dosing Weight 60, kg, Start date: 12/23/14 19:00:00, Duration: 30 day, Stop date: 01/22/15 11:00:00 Notes: (Same as: Flagyl) Avoid alcohol. Start Date: 12/23/14 Stop Date: 12/27/14 Status: Discontinued furosemide 20 mg, 2 mL, Route: IVP, Drug form: INJ, Q8H, Dosing Weight 60, kg, Start date: 12/26/14 16:00:00, Duration: 30 day, Stop date: 01/25/15 8:00:00 Notes: (Same as: Lasix) Start Date: 12/26/14 Stop Date: 12/27/14 Status: Discontinued furosemide 40 mg, 4 mL, Route: IVP, Drug form: INJ, Q12H, Dosing Weight 60, kg, Start date: 12/24/14 9:54:00, Duration: 30 day, Stop date: 01/23/15 9:00:00 Notes: (Same as: Lasix) MEDICATION WASTE Product Size: 40 mgProduct Was nedra: ___ mg Start Date: 12/24/14 Stop Date: 12/26/14 Status: Discontinued furosemide 20 mg oral tablet 20 mg=1 tab, PO, Daily, # 30 tab, 0 Refill(s) Start Date: 12/05/14 Status: Ordered glucagon 1 mg, Route: IM, Drug form: PDR/INJ, PRN, Dosing Weight 60, kg, PRN Blood Glucos e Results, Start date: 12/13/14 3:35:00, Duration: 30 day, Stop date: 02/11/15 2 :34:00 Start Date: 12/13/14 Stop Date: 01/06/15 Status: Discontinued glucagon 1 mg, Route: IM, Drug form: PDR/INJ, PRN, Dosing Weight 60, kg, PRN Blood Glucos e Results, Start date: 01/06/15 8:46:00, Stop date: 02/11/15 2:34:00 Start Date: 01/06/15 Stop Date: 01/10/15 Status: Discontinued Granulex 1 appl, Route: TOP, Daily, Drug form: SPRY, Start date: 01/06/15 9:00:00, Stop d ate: 01/24/15 9:00:00 Notes: Non-Formulary Drug. (Same As: Granulex) Start Date: 01/06/15 Stop Date: 01/10/15 Status: Discontinued Granulex topical spray 1 appl, Route: TOP, Daily, Drug form: SPRY, Start date: 12/26/14 9:00:00, Durati on: 30 day, Stop date: 01/24/15 9:00:00 Notes: Non-Formulary Drug. (Same As: Granulex) Start Date: 12/26/14 Stop Date: 01/06/15 Status: Discontinued Haldol 2 mg, Route: PO, ONCE, Dosing Weight 60, kg, Start date: 12/25/14 9:23:00, Stop date: 12/25/14 9:23:00 Start Date: 12/25/14 Stop Date: 12/25/14 Status: Discontinued Haldol 2.5 mg, 0.5 mL, Route: IVP, Drug form: INJ, Bedtime, Dosing Weight 60, kg, Start date: 12/25/14 21:00:00, Duration: 30 day, Stop date: 01/23/15 21:00:00 Notes: (Same as: Haldol) Start Date: 12/25/14 Stop Date: 12/28/14 Status: Discontinued Haldol 2 mg, Route: PO, ONCE, Dosing Weight 60, kg, Priority: STAT, Start date: 5 9:24:00, Stop date: 12/25/14 9:24:00 Start Date: 12/25/14 Stop Date: 12/25/14 Status: Completed Haldol 2.5 mg, 0.5 tab, Route: PO, Drug form: TAB, Q12H, Dosing Weight 60, kg, Start da te: 12/26/14 10:06:00, Duration: 30 day, Stop date: 01/25/15 9:00:00 Notes: (Same as: Haldol) Start Date: 12/26/14 Stop Date: 01/01/15 Status: Discontinued Haldol 2 mg, 1 tab, Route: PO, Drug form: TAB, ONCE, Dosing Weight 60, kg, Start date: 12/24/14 9:37:00, Stop date: 12/24/14 9:37:00 Notes: (Same as: Haldol) Start Date: 12/24/14 Stop Date: 12/24/14 Status: Deleted Haldol 2 mg, 2 tab, Route: PO, Drug form: TAB, ONCE, Dosing Weight 60, kg, Start date: 12/24/14 9:53:00, Stop date: 12/24/14 9:53:00 Notes: (Same as: Haldol) Start Date: 12/24/14 Stop Date: 12/24/14 Status: Completed Haldol 2 mg, Route: PO, ONCE, Dosing Weight 60, kg, Priority: NOW, Start date: 12/24/14 9:42:00, Stop date: 12/24/14 9:42:00 Start Date: 12/24/14 Stop Date: 12/24/14 Status: Deleted insulin aspart 12 unit, 0.12 mL, Route: SUB-Q, Drug form: SOLN, Sliding Scale, Dosing Weight 60 , kg, PRN Blood Glucose Results, Start date: 12/13/14 3:35:00, Duration: 30 day, Stop date: 02/11/15 2:34:00 Notes: Roll in palms of hands gently; Do not shake vigorously. (Same as: NovoLO G)"single patient use only" Stable for 28 days at room temperature.Expires in _ ____ days from Date Start Date: 12/13/14 Stop Date: 01/06/15 Status: Discontinued insulin aspart 15 unit, 0.15 mL, Route: SUB-Q, Drug form: SOLN, Sliding Scale, Dosing Weight 60 , kg, PRN Blood Glucose Results, Start date: 12/13/14 3:35:00, Duration: 30 day, Stop date: 02/11/15 2:34:00 Notes: Roll in palms of hands gently; Do not shake vigorously. (Same as: NovoLO G)"single patient use only" Stable for 28 days at room temperature.Expires in _ ____ days from Date Start Date: 12/13/14 Stop Date: 01/06/15 Status: Discontinued insulin aspart 3 unit, 0.03 mL, Route: SUB-Q, Drug form: SOLN, Sliding Scale, Dosing Weight 60, kg, PRN Blood Glucose Results, Start date: 12/13/14 3:35:00, Duration: 30 day, Stop date: 02/11/15 2:34:00 Notes: Roll in palms of hands gently; Do not shake vigorously. (Same as: NovoLO G)"single patient use only" Stable for 28 days at room temperature.Expires in _ ____ days from Date Start Date: 12/13/14 Stop Date: 01/06/15 Status: Discontinued insulin aspart 9 unit, 0.09 mL, Route: SUB-Q, Drug form: SOLN, Sliding Scale, Dosing Weight 60, kg, PRN Blood Glucose Results, Start date: 12/13/14 3:35:00, Duration: 30 day, Stop date: 02/11/15 2:34:00 Notes: Roll in palms of hands gently; Do not shake vigorously. (Same as: NovoLO G)"single patient use only" Stable for 28 days at room temperature.Expires in _ ____ days from Date Start Date: 12/13/14 Stop Date: 01/06/15 Status: Discontinued insulin aspart 6 unit, 0.06 mL, Route: SUB-Q, Drug form: SOLN, Sliding Scale, Dosing Weight 60, kg, PRN Blood Glucose Results, Start date: 12/13/14 3:35:00, Duration: 30 day, Stop date: 02/11/15 2:34:00 Notes: Roll in palms of hands gently; Do not shake vigorously. (Same as: NovoLO G)"single patient use only" Stable for 28 days at room temperature.Expires in _ ____ days from Date Start Date: 12/13/14 Stop Date: 01/06/15 Status: Discontinued iron sucrose + Sodium Chloride 0.9% IV 235 mL 300 mg, 15 mL, Route: IVPB, Drug form: INJ, ONCE, Dosing Weight 60, kg, Start da te: 12/27/14 20:05:00, Duration: 1 doses or times, Stop date: 12/27/14 20:05:00 Notes: Each 5ml contains 100mg elemental iron. Mix with NS(Same as:Venofer)Admi nister IV only. MEDICATION WASTE Product Size: 100 mgProduct Wasted: _ __ mg Start Date: 12/27/14 Stop Date: 12/27/14 Status: Completed iron sucrose + Sodium Chloride 0.9% IV 235 mL 300 mg, 15 mL, Route: IVPB, Drug form: INJ, ONCE, Dosing Weight 60, kg, Start da te: 12/24/14 22:26:00, Duration: 1 doses or times, Stop date: 12/24/14 22:26:00 Notes: Each 5ml contains 100mg elemental iron. Mix with NS(Same as:Venofer)Admi nister IV only. MEDICATION WASTE Product Size: 100 mgProduct Wasted: _ __ mg Start Date: 12/24/14 Stop Date: 12/25/14 Status: Completed iron sucrose + Sodium Chloride 0.9% IV 250 mL 300 mg, 15 mL, Route: IVPB, Drug form: INJ, ONCE, Dosing Weight 60, kg, Start da te: 01/05/15 12:11:00, Duration: 1 doses or times, Stop date: 01/05/15 12:11:00 Notes: Each 5ml contains 100mg elemental iron. Mix with NS(Same as:Venofer)Stab le x7 days at room temperature following dilution in normal saline in an IV bag (concentration 1-2 mg/mL).Administer IV only. MEDICATION WASTE Product S ize: 100 mgProduct Wasted: ___ mg Start Date: 01/05/15 Stop Date: 01/05/15 Status: Completed K-Dur 20 20 mEq, 1 tab, Route: PO, Drug form: ERTAB, PRN, Dosing Weight 60, kg, PRN Abnor mal Lab Result, Start date: 01/06/15 8:57:00, Stop date: 02/07/15 11:26:00, FOR ICU USE ONLY Notes: (Same as: K-Dur 20)"Do Not Crush" With food and full glass of water Start Date: 01/06/15 Stop Date: 01/10/15 Status: Discontinued Lactated Ringers Injection IV 1000 mL 1,000 mL, Rate: 25 ml/hr, Infuse over: 40 hr, Route: IV, Dosing Weight 60 kg, To peg Volume: 1,000, Start date: 12/19/14 15:55:00, Duration: 30 day, Stop date: 1 15:54:00 Start Date: 12/19/14 Stop Date: 12/19/14 Status: Discontinued lactulose 30 gm, 45 mL, Route: GT, Drug Form: SYRP, Dosing Weight 60, kg, BID, PRN Other - See Comment, prn constipation, Start date: 12/09/14 9:00:00, Duration: 30 day, S top date: 02/06/15 17:00:00 Notes: (Same as:Chronulac) Start Date: 12/09/14 Stop Date: 01/06/15 Status: Discontinued lactulose 30 gm, 45 mL, Route: GT, Drug Form: SYRP, Dosing Weight 60, kg, BID, PRN Other - See Comment, prn constipation, Start date: 01/06/15 8:50:00, Stop date: 02/06/15 17:00:00 Notes: (Same as:Chronulac) Start Date: 01/06/15 Stop Date: 01/10/15 Status: Discontinued lactulose 10 g/15 mL oral syrup 30 gm=45 mL, GT, BID, PRN Other -See Comment, 0 Refill(s) Start Date: 01/10/15 Status: Ordered Lasix 20 mg, 2 mL, Route: IVP, Drug form: INJ, Daily, Dosing Weight 60, kg, Start date : 01/03/15 9:00:00, Duration: 30 day, Stop date: 02/01/15 9:00:00 Notes: (Same as: Lasix) Start Date: 01/03/15 Stop Date: 01/06/15 Status: Discontinued Lasix 40 mg, 4 mL, Route: IV, Drug form: INJ, ONCE, Dosing Weight 60, kg, Start date: 12/08/14 11:15:00, Stop date: 12/08/14 11:15:00 Notes: (Same as: Lasix) MEDICATION WASTE Product Size: 40 mgProduct Was nedra: ___ mg Start Date: 12/08/14 Stop Date: 12/08/14 Status: Completed Lasix 40 mg, 4 mL, Route: IV, Drug form: INJ, ONCE, Dosing Weight 60, kg, Start date: 12/31/14 11:05:00, Stop date: 12/31/14 11:05:00 Notes: (Same as: Lasix) MEDICATION WASTE Product Size: 40 mgProduct Was nedra: ___ mg Start Date: 12/31/14 Stop Date: 12/31/14 Status: Completed Lasix 20 mg, 2 mL, Route: IVP, Drug form: INJ, Daily, Dosing Weight 60, kg, Start date : 01/02/15 9:00:00, Duration: 30 day, Stop date: 01/31/15 9:00:00 Notes: (Same as: Lasix) Start Date: 01/02/15 Stop Date: 01/02/15 Status: Discontinued Lasix 20 mg, 2 mL, Route: IV, Drug form: INJ, Daily, Dosing Weight 60, kg, Start date: 12/17/14 18:00:00, Duration: 30 day, Stop date: 01/15/15 18:00:00 Notes: (Same as: Lasix) Start Date: 12/17/14 Stop Date: 12/19/14 Status: Discontinued Lasix 20 mg, 2 mL, Route: IVP, Drug form: INJ, Q12H, Dosing Weight 60, kg, Start date: 12/31/14 21:00:00, Duration: 30 day, Stop date: 01/30/15 9:00:00 Notes: (Same as: Lasix) Start Date: 12/31/14 Stop Date: 01/01/15 Status: Discontinued Lasix 40 mg, Route: IVP, Q12H, Dosing Weight 60, kg, Priority: NOW, Start date: 9:41:00, Duration: 30 day, Stop date: 01/23/15 9:00:00 Start Date: 12/24/14 Stop Date: 12/24/14 Status: Deleted Lasix 20 mg, 2 mL, Route: IVP, Drug form: INJ, Q12H, Dosing Weight 60, kg, Start date: 01/02/15 21:00:00, Duration: 30 day, Stop date: 02/01/15 9:00:00 Notes: (Same as: Lasix) Start Date: 01/02/15 Stop Date: 01/02/15 Status: Canceled Lasix 20 mg, 2 mL, Route: IVP, Drug form: INJ, Daily, Dosing Weight 60, kg, Start date : 01/06/15 9:00:00, Stop date: 02/01/15 9:00:00 Notes: (Same as: Lasix) Start Date: 01/06/15 Stop Date: 01/09/15 Status: Discontinued Lasix 20 mg, 2 mL, Route: IV, Drug form: INJ, Q12H, Dosing Weight 60, kg, Start date: 12/19/14 21:00:00, Duration: 30 day, Stop date: 01/18/15 9:00:00 Notes: (Same as: Lasix) Start Date: 12/19/14 Stop Date: 12/21/14 Status: Discontinued Lasix 40 mg, 4 mL, Route: IVP, Drug form: INJ, ONCE, Dosing Weight 60, kg, Start date: 12/23/14 15:28:00, Stop date: 12/23/14 15:28:00 Notes: (Same as: Lasix) MEDICATION WASTE Product Size: 40 mgProduct Was nedra: ___ mg Start Date: 12/23/14 Stop Date: 12/23/14 Status: Completed Lasix 20 mg oral tablet 20 mg, 1 tab, Route: PO, Drug form: TAB, Daily, Dosing Weight 60, kg, Start date : 01/10/15 9:00:00, Duration: 30 day, Stop date: 02/08/15 9:00:00 Notes: (Same as: Lasix) May cause GI upset. Give with food or milk. Start Date: 01/10/15 Stop Date: 01/10/15 Status: Discontinued Levaquin 750 mg, 150 mL, Route: IVPB, Drug form: SOLN, Daily, Dosing Weight 59.091, kg, S tart date: 12/06/14 9:00:00, Duration: 30 day, Stop date: 01/04/15 9:00:00 Notes: (Same as:Levaquin) Start Date: 12/06/14 Stop Date: 12/05/14 Status: Canceled Levaquin 750 mg, 150 mL, Route: IVPB, Drug form: SOLN, ONCE, Dosing Weight 59.091, kg, St art date: 12/05/14 8:58:00, Stop date: 12/05/14 8:58:00 Notes: (Same as:Levaquin) Start Date: 12/05/14 Stop Date: 12/05/14 Status: Completed Levaquin 750 mg, 150 mL, Route: IVPB, Drug form: SOLN, ONCE, Dosing Weight 59.091, kg, St art date: 12/05/14 6:54:00, Stop date: 12/05/14 6:54:00 Notes: (Same as:Levaquin) Start Date: 12/05/14 Stop Date: 12/05/14 Status: Deleted Levaquin 500 mg, 100 mL, Route: IVPB, Drug form: SOLN, [id number], Dosing Weight 60, kg, Sta rt date: 12/27/14 10:00:00, Duration: 30 day, Stop date: 01/25/15 10:00:00 Notes: (Same as:Levaquin) Start Date: 12/27/14 Stop Date: 12/29/14 Status: Discontinued levofloxacin 500 mg oral tablet 500 mg=1 tab, PO, Daily, # 7 tab, 0 Refill(s) Start Date: 12/05/14 Stop Date: 12/26/14 Status: Discontinued LORazepam 0.5 mg, 1 tab, Route: PEG, Drug form: TAB, TID, Dosing Weight 60, kg, PRN Anxiet y, Start date: 01/01/15 11:37:00, Duration: 30 day, Stop date: 01/31/15 11:36:00 Notes: (Same as: Ativan) Start Date: 01/01/15 Stop Date: 01/06/15 Status: Discontinued LORazepam 0.5 mg oral tablet 0.5 mg=1 tab, PO, TID, PRN Anxiety, # 20 tab, 0 Refill(s) Start Date: 12/05/14 Stop Date: 12/12/14 Status: Ordered LORazepam 2 mg/mL injectable solution 0.5 mg=0.25 mL, IVP, ONCE, PRN Anxiety, 0 Refill(s) Start Date: 01/10/15 Status: Ordered Lovenox 40 mg, 0.4 mL, Route: SUB-Q, Drug form: INJ, [id number], Dosing Weight 60, kg, Sta rt date: 12/20/14 16:00:00, Duration: 30 day, Stop date: 01/18/15 16:00:00 Notes: (Same as: Lovenox) Start Date: 12/20/14 Stop Date: 01/06/15 Status: Discontinued Lovenox 40 mg, 0.4 mL, Route: SUB-Q, Drug form: INJ, [id number], Dosing Weight 60, kg, Sta rt date: 12/08/14 20:00:00, Stop date: 01/06/15 20:00:00 Notes: (Same as: Lovenox) Start Date: 12/08/14 Stop Date: 12/25/14 Status: Voided With Results Lovenox 40 mg, 0.4 mL, Route: SUB-Q, Drug form: INJ, [id number], Dosing Weight 60, kg, Sta rt date: 12/05/14 20:00:00, Duration: 30 day, Stop date: 01/03/15 20:00:00 Notes: (Same as: Lovenox) Start Date: 12/05/14 Stop Date: 12/08/14 Status: Discontinued Lovenox 40 mg, 0.4 mL, Route: SUB-Q, Drug form: INJ, [id number], Dosing Weight 60, kg, Sta rt date: 01/06/15 16:00:00, Stop date: 01/18/15 16:00:00 Notes: (Same as: Lovenox) Start Date: 01/06/15 Stop Date: 01/10/15 Status: Discontinued Mag-Ox 400 800 mg, 2 tab, Route: PO, Drug form: TAB, PRN, Dosing Weight 60, kg, PRN Abnorma l Lab Result, FOR ICU USE ONLY, Start date: 01/06/15 8:51:00, Stop date: 5 11:26:00 Notes: (Same as: Mag-Ox 400)Magnesium oxide [id number] elemental magnesiumDose= ____mg magnesium oxide (___mg elemental magnesium) Start Date: 01/06/15 Stop Date: 01/10/15 Status: Discontinued magnesium lactate 84 mg, Route: PO, Drug form: ERTAB, QID, Dosing Weight 60, kg, Start date: 01/07 13:00:00, Duration: 30 day, Stop date: 02/06/15 9:00:00 Start Date: 01/07/15 Stop Date: 01/07/15 Status: Canceled magnesium oxide 800 mg, 2 tab, Route: PO, Drug form: TAB, PRN, Dosing Weight 60, kg, PRN Abnorma l Lab Result, FOR ICU USE ONLY, Start date: 12/09/14 12:27:00, Duration: 30 day, Stop date: 02/07/15 11:26:00 Notes: (Same as: Mag-Ox 400)Magnesium oxide [id number] elemental magnesiumDose= ____mg magnesium oxide (___mg elemental magnesium) Start Date: 12/09/14 Stop Date: 01/06/15 Status: Discontinued magnesium sulfate 2 gm, 50 mL, Route: IVPB, Drug form: INJ, PRN, Dosing Weight 60, kg, PRN Abnorma l Lab Result, Start date: 01/06/15 8:51:00, Stop date: 02/07/15 11:26:00, FOR IC U USE ONLY Start Date: 01/06/15 Stop Date: 01/10/15 Status: Discontinued magnesium sulfate 2 gm, 50 mL, Route: IVPB, Drug form: INJ, PRN, Dosing Weight 60, kg, PRN Abnorma l Lab Result, Start date: 12/09/14 12:27:00, Duration: 30 day, Stop date: 11:26:00, FOR ICU USE ONLY Start Date: 12/09/14 Stop Date: 01/06/15 Status: Discontinued magnesium sulfate 2 gm, 50 mL, Route: IVPB, Drug form: INJ, ONCE, Dosing Weight 60, kg, Total dose =2 gm, Start date: 01/10/15 7:38:00, Duration: 1 doses or times, Stop date: 12/21 05/06 7:38:00 Start Date: 01/10/15 Stop Date: 01/10/15 Status: Discontinued magnesium sulfate 2 gm in Water 50 ml 2 gm, 50 mL, Route: IVPB, Drug form: INJ, ONCE, Dosing Weight 60, kg, Start date : 12/07/14 6:49:00, Duration: 2 hr, Stop date: 12/07/14 6:49:00 Start Date: 12/07/14 Stop Date: 12/07/14 Status: Completed meropenem + Sodium Chloride 0.9% IV 100 mL 500 mg, Route: IVPB, [id number], Dosing Weight 60, kg, CrCL >=50ml/min, Extended infusion, infuse over 3 hours, Start date: 12/29/14 19:00:00, Duration: 30 day, Stop date: 01/28/15 13:00:00 Notes: Same as Merrem MEDICATION WASTE Product Size: 500 mgProduct Wast ed: ___ mg Start Date: 12/29/14 Stop Date: 12/31/14 Status: Discontinued meropenem + Sodium Chloride 0.9% IV 100 mL 500 mg, Route: IVPB, [id number], Dosing Weight 60, kg, CrCL=26 -49 ml/min, Extended infusion, infuse over 3 hours, Start date: 12/06/14 12:00:00, Stop date: 6:00:00 Notes: Same as Merrem MEDICATION WASTE Product Size: 500 mgProduct Wast ed: ___ mg Start Date: 12/06/14 Stop Date: 12/20/14 Status: Discontinued methylPREDNISolone SODium SUCCinate 125 mg, Route: IVP, ONCE, Dosing Weight 59.091, kg, Priority: STAT, Start date: 12/05/14 6:24:00, Stop date: 12/05/14 6:24:00 Start Date: 12/05/14 Stop Date: 12/05/14 Status: Completed midazolam 2 mg, 2 mL, Route: IVP, Drug form: INJ, ONCE, Dosing Weight 60, kg, Start date: 12/26/14 23:17:00, Stop date: 12/26/14 23:17:00 Notes: (Same as: Versed) MEDICATION WASTE Product Size: 2 mgProduct Was nedra: ___ mg Start Date: 12/26/14 Stop Date: 12/26/14 Status: Completed midodrine 5 mg, 1 tab, Route: PO, Drug form: TAB, TID, Dosing Weight 60, kg, Start date: 17:00:00, Duration: 30 day, Stop date: 01/31/15 13:00:00 Notes: (Same as:Proamatine) Start Date: 01/01/15 Stop Date: 01/02/15 Status: Discontinued midodrine 2.5 mg, 1 tab, Route: PO, Drug form: TAB, TID, Dosing Weight 60, kg, hold for SB P>110, Start date: 01/02/15 13:00:00, Stop date: 02/01/15 9:00:00 Notes: (Same as:Proamatine) Start Date: 01/02/15 Stop Date: 01/06/15 Status: Discontinued morphine Sulfate 2 mg, Route: IVP, Drug form: INJ, ONCE, Dosing Weight 59.091, kg, Priority: STAT , Start date: 12/05/14 7:52:00, Stop date: 12/05/14 7:52:00 Start Date: 12/05/14 Stop Date: 12/05/14 Status: Completed morphine Sulfate 2 mg, Route: IVP, Drug form: INJ, ONCE, Dosing Weight 59.091, kg, Priority: STAT , Start date: 12/05/14 8:44:00, Stop date: 12/05/14 8:44:00 Start Date: 12/05/14 Stop Date: 12/05/14 Status: Completed multivitamin 1 tab, PO, Daily, 0 Refill(s) Start Date: 01/10/15 Status: Ordered multivitamin 5 ml, Route: PO, Drug Form: LIQ, Dosing Weight 60, kg, Daily, Start date: 9:00:00, Duration: 30 day, Stop date: 01/24/15 9:00:00 Notes: Take with food.(Same As: Theragran) Start Date: 12/26/14 Stop Date: 01/06/15 Status: Discontinued Neutra-Phos 1 pkt, Route: PO, Drug Form: PDR/REC, Dosing Weight 60, kg, BID, Start date: 02/03 17:00:00, Duration: 1 day, Stop date: 12/31/14 9:00:00 Notes: (Same as: Neutra-Phos) Each 1.25 gm pkt has 250mg phosphorous. Mix w/2.5 oz water and stir. Start Date: 12/30/14 Stop Date: 12/31/14 Status: Completed Neutra-Phos 1 pkt, Route: PO, Drug Form: PDR/REC, Dosing Weight 60, kg, ONCE, Start date: 14:23:00, Stop date: 12/13/14 14:23:00 Notes: (Same as: Neutra-Phos) Each 1.25 gm pkt has 250mg phosphorous. Mix w/2.5 oz water and stir. Start Date: 12/13/14 Stop Date: 12/13/14 Status: Completed Neutra-Phos 2 pkt, Route: PO, Drug Form: PDR/REC, Dosing Weight 60, kg, PRN, PRN Abnormal La b Result, FOR ICU USE ONLY, Start date: 12/09/14 12:27:00, Duration: 30 day, Sto p date: 02/07/15 11:26:00 Notes: (Same as: Neutra-Phos) Each 1.25 gm pkt has 250mg phosphorous. Mix w/2.5 oz water and stir. Start Date: 12/09/14 Stop Date: 01/06/15 Status: Discontinued norepinephrine 8 mg + Dextrose 5% in Water (Titrate) IV 242 mL 242 mL, Rate: Titrate, Dosing Weight 60, kg, Route: IV, Total Volume: 250, Start Date: 12/05/14 17:31:00, Duration: 30 day, Stop date: 01/04/15 17:30:00, Replace Every: 24 hr Notes: Not for direct administration - DILUTE. Protect from light. (Same as:Levo phed). Administer by either central venous catheter or peripherally-inserted lynette tral catheter (PICC) line. Start Date: 12/05/14 Stop Date: 12/09/14 Status: Discontinued norepinephrine 8 mg + Dextrose 5% in Water (Titrate) IV 242 mL 242 mL, Rate: Titrate, Dosing Weight 60, kg, Route: IV, Total Volume: 250, Start Date: 12/21/14 20:04:00, Duration: 30 day, Stop date: 01/20/15 20:03:00, Replace Every: 24 hr Notes: Not for direct administration - DILUTE. Protect from light. (Same as:Levo phed). Administer by either central venous catheter or peripherally-inserted lynette tral catheter (PICC) line. Start Date: 12/21/14 Stop Date: 12/24/14 Status: Discontinued normal saline 0.9% IV 1000 mL 1,000 mL, Rate: 100 ml/hr, Infuse over: 10 hr, Route: IV, Dosing Weight 59.091 k g, Total Volume: 1,000, Priority: STAT, Start date: 12/05/14 13:22:00, Duration: 1 doses or times, Stop date: 12/05/14 23:21:00 Start Date: 12/05/14 Stop Date: 12/05/14 Status: Completed NovoLOG FlexPen 9 unit, 0.09 mL, Route: SUB-Q, Drug form: SOLN, Sliding Scale, Dosing Weight 60, kg, PRN Blood Glucose Results, Start date: 01/06/15 8:47:00, Stop date: 02/11/15 2:34:00 Notes: Roll in palms of hands gently; Do not shake vigorously. (Same as: NovoLO G)"single patient use only" Stable for 28 days at room temperature.Expires in _ ____ days from Date Start Date: 01/06/15 Stop Date: 01/10/15 Status: Discontinued NovoLOG FlexPen 6 unit, 0.06 mL, Route: SUB-Q, Drug form: SOLN, Sliding Scale, Dosing Weight 60, kg, PRN Blood Glucose Results, Start date: 01/06/15 8:47:00, Stop date: 02/11/15 2:34:00 Notes: Roll in palms of hands gently; Do not shake vigorously. (Same as: NovoLO G)"single patient use only" Stable for 28 days at room temperature.Expires in _ ____ days from Date Start Date: 01/06/15 Stop Date: 01/10/15 Status: Discontinued NovoLOG FlexPen 3 unit, 0.03 mL, Route: SUB-Q, Drug form: SOLN, Sliding Scale, Dosing Weight 60, kg, PRN Blood Glucose Results, Start date: 01/06/15 8:47:00, Stop date: 02/11/15 2:34:00 Notes: Roll in palms of hands gently; Do not shake vigorously. (Same as: NovoLO G)"single patient use only" Stable for 28 days at room temperature.Expires in _ ____ days from Date Start Date: 01/06/15 Stop Date: 01/10/15 Status: Discontinued NovoLOG FlexPen 15 unit, 0.15 mL, Route: SUB-Q, Drug form: SOLN, Sliding Scale, Dosing Weight 60 , kg, PRN Blood Glucose Results, Start date: 01/06/15 8:47:00, Stop date: 2:34:00 Notes: Roll in palms of hands gently; Do not shake vigorously. (Same as: NovoLO G)"single patient use only" Stable for 28 days at room temperature.Expires in _ ____ days from Date Start Date: 01/06/15 Stop Date: 01/10/15 Status: Discontinued NovoLOG FlexPen 12 unit, 0.12 mL, Route: SUB-Q, Drug form: SOLN, Sliding Scale, Dosing Weight 60 , kg, PRN Blood Glucose Results, Start date: 01/06/15 8:46:00, Stop date: 2:34:00 Notes: Roll in palms of hands gently; Do not shake vigorously. (Same as: NovoLO G)"single patient use only" Stable for 28 days at room temperature.Expires in _ ____ days from Date Start Date: 01/06/15 Stop Date: 01/10/15 Status: Discontinued NS (Bolus) IV 2,000 mL, 2000 ml/hr, Infuse Over: 1 hr, Route: IV, 2,000, Drug form: INJ, ONCE, Priority: STAT, Dosing Weight 60 kg, Start date: 12/06/14 11:21:00, Duration: 1 doses or times, Stop date: 12/06/14 11:21:00 Start Date: 12/06/14 Stop Date: 12/06/14 Status: Completed NS (Bolus) IV 2,000 mL, 1,000 ml/hr, Infuse Over: 1 hr, Route: IV, ONCE, Priority: STAT, Dosin g Weight 60 kg, Start date: 12/05/14 17:31:00, Duration: 1 doses or times, Stop date: 12/05/14 17:31:00 Start Date: 12/05/14 Stop Date: 12/05/14 Status: Completed NS (Bolus) IV 2,000 mL, 2000 ml/hr, Infuse Over: 1 hr, Route: IV, 2,000, Drug form: INJ, ONCE, Priority: STAT, Dosing Weight 59.091 kg, Start date: 12/05/14 6:55:00, Duration: 1 doses or times, Stop date: 12/05/14 6:55:00 Start Date: 12/05/14 Stop Date: 12/05/14 Status: Completed NS (Bolus) IV 1,000 mL, 1,000 ml/hr, Infuse Over: 1 hr, Route: IV, ONCE, Priority: STAT, Dosin g Weight 59.091 kg, Start date: 12/05/14 13:22:00, Duration: 1 doses or times, S top date: 12/05/14 13:22:00 Start Date: 12/05/14 Stop Date: 12/05/14 Status: Completed NS (Bolus) IV 250 mL, 250 ml/hr, Infuse Over: 1 hr, Route: IV, 250, Drug form: INJ, ONCE, Prio rity: STAT, Dosing Weight 60 kg, Start date: 12/21/14 20:04:00, Duration: 1 dose s or times, Stop date: 12/21/14 20:04:00 Start Date: 12/21/14 Stop Date: 12/21/14 Status: Completed NS 1000 mL 1,000 mL, Rate: 100 ml/hr, Infuse over: 10 hr, Route: IV, Dosing Weight 60 kg, T otal Volume: 1,000, Start date: 12/07/14 12:37:00, Duration: 30 day, Stop date: 01/06/15 12:36:00 Start Date: 12/07/14 Stop Date: 12/07/14 Status: Discontinued ondansetron 4 mg, 2 mL, Route: IVP, Drug form: INJ, Q6H, Dosing Weight 59.091, kg, PRN Nause a & Vomiting, Start date: 12/05/14 9:21:00, Duration: 30 day, Stop date: 02/03/15 9:20:00 Notes: (Same as: Arnoldo) MEDICATION WASTE Product Size: 4 mgProduct Was nedra: ___ mg Start Date: 12/05/14 Stop Date: 01/06/15 Status: Discontinued ondansetron 2 mg/mL injectable solution 4 mg=2 mL, IVP, Q6H, PRN Nausea & Vomiting, 0 Refill(s) Start Date: 01/10/15 Status: Ordered pantoprazole 40 mg, Route: IV, Drug form: INJ, Daily, Dosing Weight 60, kg, Start date: 12/19 18:00:00, Duration: 30 day, Stop date: 01/18/15 9:00:00 Notes: For IV push reconstitute with 10 ml 0.9% sodium chloride and push over 2 minutes. (Same as: Protonix) Start Date: 12/19/14 Stop Date: 12/25/14 Status: Discontinued pantoprazole 40 mg, 1 pkt, Route: OGT, Drug form: GRAN/REC, Before Dinner, Dosing Weight 60, kg, Start date: 12/12/14 16:30:00, Stop date: 01/10/15 16:30:00 Notes: Same as: Protonix Start Date: 12/12/14 Stop Date: 12/19/14 Status: Discontinued pantoprazole 40 mg oral granule =1 tab, PO, Daily, 0 Refill(s) Start Date: 01/10/15 Status: Ordered potassium chloride 20 mEq, 100 mL, Route: IVPB, Drug form: INJ, Q2H, Dosing Weight 60, kg, Total do se=40 mEq, Start date: 12/13/14 12:00:00, Duration: 2 doses or times, Stop date: 12/13/14 14:00:00 Notes: (Same as: KCL) Infuse no faster than 10 mEq/hr if given peripherally. Start Date: 12/13/14 Stop Date: 12/13/14 Status: Canceled potassium chloride 20 mEq, 100 mL, Route: IVPB, Drug form: INJ, PRN, Dosing Weight 60, kg, PRN Abno rmal Lab Result, Via central line, Start date: 01/06/15 8:58:00, Stop date: 01/20 12/04 11:26:00, FOR ICU USE ONLY Notes: (Same as: KCL) Infuse no faster than 10 mEq/hr if given peripherally. Start Date: 01/06/15 Stop Date: 01/10/15 Status: Discontinued potassium chloride 10 mEq, 100 mL, Route: IVPB, Drug form: INJ, PRN, Dosing Weight 60, kg, PRN Abno rmal Lab Result, Via peripheral line, Start date: 01/06/15 8:57:00, Stop date: 04/09/14 11:26:00, FOR ICU USE ONLY Notes: Infuse at a rate of 10 mEq/hr.(Same as: KCL) Start Date: 01/06/15 Stop Date: 01/10/15 Status: Discontinued potassium chloride 20 mEq, 15 mL, Route: NJ, Drug form: LIQ, PRN, Dosing Weight 60, kg, PRN Abnorma l Lab Result, Start date: 01/06/15 8:57:00, Stop date: 02/07/15 11:26:00, FOR IC U USE ONLY Notes: (Same as: Potassium Chloride) Start Date: 01/06/15 Stop Date: 01/10/15 Status: Discontinued potassium chloride 20 mEq, 15 mL, Route: NJ, Drug form: LIQ, PRN, Dosing Weight 60, kg, PRN Abnorma l Lab Result, Start date: 12/09/14 12:27:00, Duration: 30 day, Stop date: 11:26:00, FOR ICU USE ONLY Notes: (Same as: Potassium Chloride) Start Date: 12/09/14 Stop Date: 01/06/15 Status: Discontinued potassium chloride 20 mEq, 1 tab, Route: PO, Drug form: ERTAB, PRN, Dosing Weight 60, kg, PRN Abnor mal Lab Result, Start date: 12/09/14 12:27:00, Duration: 30 day, Stop date: 01/20 12/04 11:26:00, FOR ICU USE ONLY Notes: (Same as: K-Dur 20)"Do Not Crush" With food and full glass of water Start Date: 12/09/14 Stop Date: 01/06/15 Status: Discontinued potassium chloride 10 mEq, 100 mL, Route: IVPB, Drug form: INJ, PRN, Dosing Weight 60, kg, PRN Abno rmal Lab Result, Via peripheral line, Start date: 12/09/14 12:27:00, Duration: 3 0 day, Stop date: 02/07/15 11:26:00, FOR ICU USE ONLY Notes: Infuse at a rate of 10 mEq/hr.(Same as: KCL) Start Date: 12/09/14 Stop Date: 01/06/15 Status: Discontinued potassium chloride 20 mEq, 100 mL, Route: IVPB, Drug form: INJ, PRN, Dosing Weight 60, kg, PRN Abno rmal Lab Result, Via central line, Start date: 12/09/14 12:27:00, Duration: 30 d ay, Stop date: 02/07/15 11:26:00, FOR ICU USE ONLY Notes: (Same as: KCL) Infuse no faster than 10 mEq/hr if given peripherally. Start Date: 12/09/14 Stop Date: 01/06/15 Status: Discontinued potassium chloride 20 mEq/15 mL oral liquid 40 mEq, 30 mL, Route: PO, Drug form: LIQ, ONCE, Dosing Weight 60, kg, Start date : 12/13/14 11:05:00, Stop date: 12/13/14 11:05:00 Notes: (Same as: Potassium Chloride) Start Date: 12/13/14 Stop Date: 12/13/14 Status: Discontinued potassium chloride 20 mEq/15 mL oral liquid 40 mEq, 30 mL, Route: PO, Drug form: LIQ, ONCE, Dosing Weight 60, kg, Start date : 12/29/14 12:55:00, Stop date: 12/29/14 12:55:00 Notes: (Same as: Potassium Chloride) Start Date: 12/29/14 Stop Date: 12/29/14 Status: Completed potassium chloride 20 mEq/15 mL oral liquid 20 mEq, 15 mL, Route: PO, Drug form: LIQ, BID, Dosing Weight 60, kg, Start date: 12/11/14 17:00:00, Duration: 30 day, Stop date: 01/10/15 9:00:00 Notes: (Same as: Potassium Chloride) Start Date: 12/11/14 Stop Date: 12/17/14 Status: Discontinued potassium chloride 20 mEq/15 mL oral liquid 60 mEq, 45 mL, Route: PO, Drug form: LIQ, ONCE, Dosing Weight 60, kg, Start date : 12/12/14 14:06:00, Stop date: 12/12/14 14:06:00 Notes: (Same as: Potassium Chloride) Start Date: 12/12/14 Stop Date: 12/12/14 Status: Completed potassium phosphate + Sodium Chloride 0.9% IV 250 mL 15 mmol, 5 mL, Route: IVPB, ONCE, Dosing Weight 60, kg, Start date: 01/08/15 9:5 0:00, Stop date: 01/08/15 9:50:00 Notes: (Same as: K Phosphate.) 1 mMol phoshate has 1.47 mEq potassium Infuse o jesús 4 hours Start Date: 01/08/15 Stop Date: 01/08/15 Status: Completed potassium phosphate + Sodium Chloride 0.9% IV 250 mL 15 mmol, 5 mL, Route: IVPB, ONCE, Dosing Weight 60, kg, Start date: 12/13/14 11: 40:00, Stop date: 12/13/14 11:40:00 Notes: (Same as: K Phosphate.) 1 mMol phoshate has 1.47 mEq potassium Infuse o jesús 4 hours Start Date: 12/13/14 Stop Date: 12/13/14 Status: Completed potassium phosphate + Sodium Chloride 0.9% IV 250 mL 15 mmol, 5 mL, Route: IVPB, PRN, Dosing Weight 60, kg, PRN Abnormal Lab Result, Start date: 12/09/14 12:27:00, Duration: 30 day, Stop date: 02/07/15 11:26:00, F OR ICU USE ONLY Notes: (Same as: K Phosphate.) 1 mMol phoshate has 1.47 mEq potassium Infuse o jesús 4 hours Start Date: 12/09/14 Stop Date: 01/10/15 Status: Discontinued potassium phosphate + Sodium Chloride 0.9% IV 250 mL 30 mmol, 10 mL, Route: IVPB, PRN, Dosing Weight 60, kg, PRN Abnormal Lab Result, Start date: 12/09/14 12:27:00, Duration: 30 day, Stop date: 02/07/15 11:26:00, FOR ICU USE ONLY Notes: (Same as: K Phosphate.) 1 mMol phoshate has 1.47 mEq potassium Infuse o jesús 4 hours Start Date: 12/09/14 Stop Date: 01/10/15 Status: Discontinued potassium phosphate + Sodium Chloride 0.9% IV 250 mL 45 mmol, 15 mL, Route: IVPB, PRN, Dosing Weight 60, kg, PRN Abnormal Lab Result, Start date: 12/09/14 12:27:00, Duration: 30 day, Stop date: 02/07/15 11:26:00, FOR ICU USE ONLY Notes: (Same as: K Phosphate.) 1 mMol phoshate has 1.47 mEq potassium Infuse o jesús 4 hours Start Date: 12/09/14 Stop Date: 01/10/15 Status: Discontinued potassium phosphate-sodium phosphate 250 mg-278 mg-164 mg oral powder 2 pkt, Route: PO, Drug Form: PDR/REC, Dosing Weight 60, kg, PRN, PRN Abnormal La b Result, FOR ICU USE ONLY, Start date: 01/06/15 8:58:00, Stop date: 02/07/15 11 :26:00 Notes: (Same as: Neutra-Phos) Each 1.25 gm pkt has 250mg phosphorous. Mix w/2.5 oz water and stir. Start Date: 01/06/15 Stop Date: 01/10/15 Status: Discontinued predniSONE 10 mg oral tablet 10 mg=1 tab, PO, Daily, # 30 tab, 3 Refill(s) Start Date: 12/05/14 Stop Date: 01/10/15 Status: Discontinued ProAir HFA 90 mcg/inh inhalation aerosol with adapter 1 puff, INHALER, Q6H, PRN for wheezing, # 8.5 gm, 0 Refill(s) Start Date: 12/05/14 Stop Date: 01/10/15 Status: Discontinued ProAmatine 2.5 mg, 1 tab, Route: PO, Drug form: TAB, TID, Dosing Weight 60, kg, hold for SB P>110, Start date: 01/06/15 9:00:00, Stop date: 02/01/15 17:00:00 Notes: (Same as:Proamatine) Start Date: 01/06/15 Stop Date: 01/07/15 Status: Discontinued Protonix 40 mg, 1 pkt, Route: PEG, Drug form: GRAN/REC, Daily, Start date: 01/06/15 9:00: 00, Stop date: 01/24/15 9:00:00 Notes: Same as: Protonix Start Date: 01/06/15 Stop Date: 01/10/15 Status: Discontinued Protonix 40 mg, 1 pkt, Route: PEG, Drug form: GRAN/REC, Daily, Start date: 12/26/14 9:00: 00, Duration: 30 day, Stop date: 01/24/15 9:00:00 Notes: Same as: Protonix Start Date: 12/26/14 Stop Date: 01/06/15 Status: Discontinued Protonix 40 mg, Route: IVP, Drug form: INJ, Before Dinner, Dosing Weight 60, kg, Start da te: 12/06/14 16:30:00, Stop date: 01/04/15 20:00:00 Notes: For IV push reconstitute with 10 ml 0.9% sodium chloride and push over 2 minutes. (Same as: Protonix) Start Date: 12/06/14 Stop Date: 12/12/14 Status: Discontinued sertraline 25 mg, 0.5 tab, Route: PO, Drug form: TAB, Daily, Dosing Weight 60, kg, Start da te: 12/14/14 9:00:00, Duration: 30 day, Stop date: 02/11/15 9:00:00 Notes: (Same as: Zoloft) Start Date: 12/14/14 Stop Date: 01/06/15 Status: Discontinued sertraline 50 mg oral tablet 50 mg=1 tab, PO, Daily, 0 Refill(s) Start Date: 01/10/15 Status: Ordered sodium bicarbonate 8.4% additive 75 mEq + 1/2 NS 1,000 mL 1,000 mL, Rate: 100 ml/hr, Infuse over: 10.8 hr, Route: IV, Dosing Weight 60 kg, Total Volume: 1,075, Start date: 12/07/14 12:45:00, Duration: 30 day, Stop date: 01/06/15 12:44:00 Notes: (sodium bicarb 8.4% (1 mEq/ml) 50 ml VL) Start Date: 12/07/14 Stop Date: 12/08/14 Status: Discontinued Sodium Chloride 0.9% (Bolus) IV 1,000 mL, 1,000 ml/hr, Infuse Over: 1 hr, Route: IV, ONCE, Priority: STAT, Dosin g Weight 59.091 kg, Start date: 12/05/14 6:24:00, Duration: 1 doses or times, St op date: 12/05/14 6:24:00 Start Date: 12/05/14 Stop Date: 12/05/14 Status: Completed sodium phosphate + Dextrose 5% in Water IV 250 mL 30 mmol, 10 mL, Route: IVPB, PRN, Dosing Weight 60, kg, PRN Abnormal Lab Result, Start date: 12/09/14 12:27:00, Duration: 30 day, Stop date: 02/07/15 11:26:00, FOR ICU USE ONLY Start Date: 12/09/14 Stop Date: 01/10/15 Status: Discontinued sodium phosphate + Dextrose 5% in Water IV 250 mL 15 mmol, 5 mL, Route: IVPB, PRN, Dosing Weight 60, kg, PRN Abnormal Lab Result, Start date: 12/09/14 12:27:00, Duration: 30 day, Stop date: 02/07/15 11:26:00, F OR ICU USE ONLY Start Date: 12/09/14 Stop Date: 01/10/15 Status: Discontinued sodium phosphate + Dextrose 5% in Water IV 250 mL 45 mmol, 15 mL, Route: IVPB, PRN, Dosing Weight 60, kg, PRN Abnormal Lab Result, Start date: 12/09/14 12:27:00, Duration: 30 day, Stop date: 02/07/15 11:26:00, FOR ICU USE ONLY Start Date: 12/09/14 Stop Date: 01/10/15 Status: Discontinued Solu-CORTEF 50 mg, 1 mL, Route: IVP, Drug form: PDR/INJ, Q6Hnow, Dosing Weight 60, kg, Start date: 12/06/14 9:00:00, Duration: 30 day, Stop date: 01/05/15 3:00:00 Notes: (Same as: Solu-CORTEF) Start Date: 12/06/14 Stop Date: 12/12/14 Status: Discontinued Solu-MEDROL 20 mg, 0.5 mL, Route: IVP, Drug form: INJ, Q12H, Dosing Weight 60, kg, Priority: Routine, Start date: 01/06/15 9:00:00, Stop date: 02/03/15 21:00:00 Notes: (Same as:Solu-MEDROL, A-Methapred) Start Date: 01/06/15 Stop Date: 01/09/15 Status: Discontinued Solu-MEDROL 40 mg, 1 mL, Route: IVP, Drug form: INJ, Q12H, Dosing Weight 60, kg, Priority: N OW, Start date: 01/04/15 23:37:00, Duration: 30 day, Stop date: 02/03/15 21:00:0 0 Notes: (Same as:Solu-MEDROL, A-Methapred) Start Date: 01/04/15 Stop Date: 01/06/15 Status: Discontinued sterile water 5 mL, Route: MISC, Drug Form: INJ, Daily, Start date: 01/09/15 9:00:00, Duration : 2 day, Stop date: 01/10/15 9:00:00 Notes: For reconstitution of drugs only Start Date: 01/09/15 Stop Date: 01/10/15 Status: Completed Sublimaze 25 microgram, 0.5 mL, Route: IV, Drug form: INJ, Q2H, Dosing Weight 60, kg, PRN Pain Score 1-5, Start date: 01/06/15 8:45:00, Stop date: 02/08/15 6:12:00 Notes: (Same as: Sublimaze) Preservative free. Start Date: 01/06/15 Stop Date: 01/10/15 Status: Discontinued succinylcholine 100 mg, Route: IV, ONCE, Dosing Weight 59.091, kg, Start date: 12/05/14 11:54:00 , Stop date: 12/05/14 11:54:00 Start Date: 12/05/14 Stop Date: 12/05/14 Status: Completed Theragran 5 ml, Route: PO, Drug Form: LIQ, Dosing Weight 60, kg, Daily, Start date: 9:00:00, Stop date: 01/24/15 9:00:00 Notes: Take with food.(Same As: Theragran) Start Date: 01/06/15 Stop Date: 01/10/15 Status: Discontinued Tums 500 mg, 1 tab, Route: PO, Drug form: CHEWTAB, PRN, Dosing Weight 60, kg, PRN Abn ormal Lab Result, FOR ICU USE ONLY, Start date: 01/06/15 8:38:00, Stop date: 11:26:00 Notes: (Same As: Tums)Calcium Carbonate 500 vl=548 mg elemental calcium Dose=_ mg calcium carbonate ( mg elemental calcium) Start Date: 01/06/15 Stop Date: 01/10/15 Status: Discontinued Tums 1,000 mg, 2 tab, Route: PO, Drug form: CHEWTAB, PRN, Dosing Weight 60, kg, PRN A bnormal Lab Result, FOR ICU USE ONLY, Start date: 01/06/15 8:38:00, Stop date: 04/09/14 11:26:00 Notes: (Same As: Tums)Calcium Carbonate 500 zy=866 mg elemental calcium Dose=_ mg calcium carbonate ( mg elemental calcium) Start Date: 01/06/15 Stop Date: 01/10/15 Status: Discontinued Tylenol 650 mg, Route: PO, Drug form: TAB, ONCE, Dosing Weight 59.091, kg, Priority: STA T, Start date: 12/05/14 6:52:00, Stop date: 12/05/14 6:52:00 Start Date: 12/05/14 Stop Date: 12/05/14 Status: Completed Tylenol 650 mg, 1 supp, Route: SC, Drug form: SUPP, Q4H, Dosing Weight 59.091, kg, PRN F or Temp > 101 F, Start date: 12/05/14 13:01:00, Duration: 30 day, Stop date: 02/03/15 13:00:00 Start Date: 12/05/14 Stop Date: 01/06/15 Status: Discontinued Tylenol 650 mg, 20.3 mL, Route: PO, Drug form: LIQ, Q4H, Dosing Weight 60, kg, PRN Pain 1-3/Temp > 100.4 F, Start date: 01/06/15 8:34:00, Stop date: 01/17/15 15:45:00 Notes: Max [id number]/day (4 gm/day). (Same as: Tylenol) Start Date: 01/06/15 Stop Date: 01/10/15 Status: Discontinued Tylenol 650 mg, 1 supp, Route: SC, Drug form: SUPP, Q4H, Dosing Weight 59.091, kg, PRN F or Temp > 101 F, Start date: 01/06/15 8:34:00, Stop date: 02/03/15 13:00:00 Start Date: 01/06/15 Stop Date: 01/10/15 Status: Discontinued vancomycin 1 gm, 200 mL, Route: IVPB, Drug form: INJ, [id number], Dosing Weight 59.091, kg, St art date: 12/06/14 16:00:00, Duration: 30 day, Stop date: 01/04/15 16:00:00 Notes: TIME CRITICAL MEDICATION Start Date: 12/06/14 Stop Date: 12/14/14 Status: Discontinued vancomycin 1 gm, Route: IVPB, Drug form: INJ, Q12H, Dosing Weight 59.091, kg, Priority: STA T, Start date: 12/05/14 13:14:00, Duration: 30 day, Stop date: 01/04/15 9:00:00 Start Date: 12/05/14 Stop Date: 12/05/14 Status: Deleted vancomycin 750 mg, 150 mL, Route: IVPB, Drug form: INJ, [id number], Start date: 12/23/14 8:00: 00, Duration: 30 day, Stop date: 01/21/15 20:00:00 Notes: TIME CRITICAL MEDICATIONSame as: VancocinInfusion rate< 1000 mg: infuse over 1 [id number] - 1500 mg: infuse over 1.5 [id number] - 2000 mg: infuse over 2 hours> 2001 mg: infuse over 2.5 hours Start Date: 12/23/14 Stop Date: 12/25/14 Status: Discontinued vancomycin 1 gm, 200 mL, Route: IVPB, Drug form: INJ, [id number], Dosing Weight 59.091, kg, St art date: 12/05/14 16:00:00, Duration: 30 day, Stop date: 01/04/15 4:00:00 Notes: TIME CRITICAL MEDICATION Start Date: 12/05/14 Stop Date: 12/06/14 Status: Discontinued vancomycin 125 mg, 2.5 mL, Route: PO, Drug form: SUSP, [id number], Dosing Weight 60, kg, Start date: 12/31/14 18:00:00, Duration: 30 day, Stop date: 01/30/15 12:00:00 Notes: TIME CRITICAL MEDICATION"DILUTE EACH DOSE WITH 30ML OF WATER OR APPLE/ORA NGE JUICE PRIOR TO ADMINISTRATION" Start Date: 12/31/14 Stop Date: 01/02/15 Status: Discontinued vancomycin 1 gm, 200 mL, Route: IVPB, Drug form: INJ, [id number], Dosing Weight 60, kg, Start date: 12/31/14 12:00:00, Duration: 30 day, Stop date: 01/29/15 12:00:00 Notes: TIME CRITICAL MEDICATION Start Date: 12/31/14 Stop Date: 01/02/15 Status: Discontinued vancomycin 1 gm, 200 mL, Route: IV, Drug form: INJ, [id number], Dosing Weight 60, kg, Start da te: 12/20/14 20:00:00, Duration: 30 day, Stop date: 01/19/15 8:00:00 Notes: TIME CRITICAL MEDICATION Start Date: 12/20/14 Stop Date: 12/22/14 Status: Discontinued vasopressin 40 unit + Sodium Chloride 0.9% (titrate) 98 mL 98 mL, Rate: Infuse at 0.04 unit/minute, Dosing Weight 60, kg, Route: IV, Total Volume: 100 mL, Start Date: 12/06/14 8:15:00, Duration: 30 day, Stop date: 01/05 8:14:00, Replace Every: 24 hr Notes: (Same As: Pitressin, Vasostrict) Start Date: 12/06/14 Stop Date: 12/09/14 Status: Discontinued Versed 50 mg in NS 50 ml (titrate) IV 50 mg 50 mg, 50 mL, Rate: Titrate as directed, Dosing Weight 59.091, kg, Route: IV, To peg Volume: 50 mL, Start Date: 12/05/14 11:54:00, Duration: 30 day, Stop date: 11:53:00, Replace Every: 24 hr Notes: (Same as: Versed) Start Date: 12/05/14 Stop Date: 12/09/14 Status: Discontinued Versed 50 mg in NS 50 ml (titrate) IV 50 mg 50 mg, 50 mL, Rate: Titrate as directed, Dosing Weight 60, kg, Route: IV, Total Volume: 50 mL, Start Date: 12/10/14 12:11:00, Duration: 30 day, Stop date: 01/09 12:10:00, Replace Every: 24 hr Notes: (Same as: Versed) Start Date: 12/10/14 Stop Date: 12/24/14 Status: Discontinued Xanax 0.25 mg oral tablet 0.25 mg, 1 tab, Route: PO, Drug form: TAB, ONCE, Dosing Weight 60, kg, Start chantel e: 12/30/14 23:33:00, Stop date: 12/30/14 23:33:00 Notes: With food or milk(Same as: Xanax) Start Date: 12/30/14 Stop Date: 12/31/14 Status: Completed Zithromax 500 mg, 250 mL, Route: IVPB, Drug form: PDR/INJ, ONCE, Dosing Weight 59.091, kg, Priority: STAT, Start date: 12/05/14 9:00:00, Stop date: 12/05/14 9:00:00 Notes: Same as: Zithromax Start Date: 12/05/14 Stop Date: 12/05/14 Status: Completed Zofran 4 mg, 2 mL, Route: IVP, Drug form: INJ, Q6H, Dosing Weight 59.091, kg, PRN Nause a & Vomiting, Start date: 01/06/15 8:52:00, Stop date: 02/03/15 9:20:00 Notes: (Same as: Zofran) MEDICATION WASTE Product Size: 4 mgProduct Was nedra: ___ mg Start Date: 01/06/15 Stop Date: 01/10/15 Status: Discontinued Zoloft 50 mg, 1 tab, Route: PO, Drug form: TAB, Daily, Dosing Weight 60, kg, Start date : 01/07/15 9:00:00, Stop date: 02/05/15 9:00:00 Notes: (Same as: Zoloft) Start Date: 01/07/15 Stop Date: 01/10/15 Status: Discontinued Zoloft 25 mg, 0.5 tab, Route: PO, Drug form: TAB, Daily, Dosing Weight 60, kg, Start da te: 01/06/15 9:00:00, Stop date: 02/11/15 9:00:00 Notes: (Same as: Zoloft) Start Date: 01/06/15 Stop Date: 01/06/15 Status: Discontinued Zolvit oral liquid 7.5 mL, Route: PEG, Drug Form: SOLN, Dosing Weight 60, kg, Q12H, PRN Pain Score 1-5, NOW, Start date: 01/06/15 8:35:00, Stop date: 01/24/15 14:41:00 Notes: Do not exceed 4gm/day of acetaminophen. (Same as: Zolvit) Start Date: 01/06/15 Stop Date: 01/10/15 Status: Discontinued Zolvit oral liquid 7.5 mL, Route: PEG, Drug Form: SOLN, Dosing Weight 60, kg, Q12H, PRN Pain Score 1-5, NOW, Start date: 12/25/14 14:42:00, Duration: 30 day, Stop date: 01/24/15 1 4:41:00 Notes: Do not exceed 4gm/day of acetaminophen. (Same as: Zolvit) Start Date: 12/25/14 Stop Date: 01/06/15 Status: Discontinued Zosyn 3.375 gm, 100 mL, Route: IVPB, Drug form: PDR/INJ, [id number], Dosing Weight 60, kg, CrCl >=20 ml/min infuse over 4 hours, Start date: 12/20/14 19:00:00, Duration: 30 day, Stop date: 01/19/15 11:00:00 Notes: (Same as: Zosyn)Infuse over 4 hours. Activate and reconstitute before us e. Dosing based on Piperacillin component Start Date: 12/20/14 Stop Date: 12/23/14 Status: Discontinued Zosyn 3.375 gm, 100 mL, Route: IVPB, Drug form: PDR/INJ, ABXQ8H, Dosing Weight 59.091, kg, Priority: STAT, Start date: 12/05/14 13:16:00, Duration: 30 day, Stop date: 01/04/15 6:00:00 Notes: (Same as: Zosyn)Infuse over 4 hours. Activate and reconstitute before us e. Dosing based on Piperacillin component Start Date: 12/05/14 Stop Date: 12/06/14 Status: Discontinued Results BLOOD BANK RESULTS 1 2 3 Most recent to oldest [Reference Range]: AB POS *Unknown* (12/27/14 10:11 AM) ABO/Rh Negative (12/27/14 10:11 AM) Antibody Scrn ELECTROLYTES 1 2 3 Most recent to oldest [Reference Range]: 134 mEq/L *LOW* (01/10/15 8:03 AM) 136 mEq/L (01/09/15:14 AM) 138 mEq/L (01/08/15:19 AM) Sodium Lvl [135-145 mEq/L] 3.8 mEq/L (01/10/15 8:03 AM) 4.3 mEq/L (01/09/15:14 AM) 3.8 mEq/L (01/08/15:19 AM) Potassium Lvl [3.5-5.1 mEq/L] 97 mEq/L (01/10/15 8:03 AM) 97 mEq/L (01/09/15: AM) 100 mEq/L (01/08/15: AM) Chloride Lvl [95-109 mEq/L] 31 mEq/L (01/10/15 8:03 AM) 33 mEq/L *HI* (01/09/15: AM) 33 mEq/L *HI* (01/08/15: AM) CO2 [24-32 mEq/L] 9.8 mEq/L *LOW* (01/10/15 8:03 AM) 10.3 mEq/L (01/09/15: AM) 8.8 mEq/L *LOW* (01/08/15:19 AM) AGAP [10.0-20.0 mEq/L] CHEM PANEL 1 2 3 Most recent to oldest [Reference Range]: 0.6 mg/dL (01/10/15 8:03 AM) 0.6 mg/dL (01/09/15:14 AM) 0.6 mg/dL (01/08/15:19 AM) Creatinine Lvl [0.5-1.4 mg/dL] 106 mL/min/1.73m2 1 *NA* (01/10/15 8:03 AM) 106 mL/min/1.73m2 2 *NA* (01/09/15 5:14 AM) 106 mL/min/1.73m2 3 *NA* (01/08/15:19 AM) eGFR 25 mg/dL *HI* (01/10/15 8:03 AM) 28 mg/dL *HI* (01/09/15 5:14 AM) 27 mg/dL *HI* (01/08/15 7:19 AM) BUN [7-22 mg/dL] 25 (12/30/14 6:15 AM) 27 *HI* (12/29/14 5:52 AM) 27 *HI* (12/28/14 3:38 AM) B/C Ratio [6-25] 84 mg/dL (01/10/15 8:03 AM) 125 mg/dL *HI* (01/09/15 5:14 AM) 166 mg/dL *HI* (01/08/15 7:19 AM) Glucose Lvl [70-99 mg/dL] 6.6 g/dL (01/08/15 7:19 AM) 5.4 g/dL *LOW* (12/30/14 6:15 AM) 5.5 g/dL *LOW* (12/29/14 5:52 AM) Total Protein [6.4-8.4 g/dL] 2.0 g/dL *LOW* (01/08/15 7:19 AM) 1.7 g/dL *LOW* (01/02/15 5:11 AM) 2.0 g/dL *LOW* (12/30/14 6:15 AM) Albumin Lvl [3.5-5.0 g/dL] 4.6 g/dL *HI* (01/08/15 7:19 AM) 3.4 g/dL (12/30/14 6:15 AM) 3.4 g/dL (12/29/14 5:52 AM) Globulin [2.0-4.0 g/dL] 0.4 *LOW* (01/08/15 7:19 AM) 0.6 *LOW* (12/30/14 6:15 AM) 0.6 *LOW* (12/29/14 5:52 AM) A/G Ratio [0.7-1.6] 8.3 mg/dL *LOW* (01/10/15 8:03 AM) 8.4 mg/dL *LOW* (01/09/15 5:14 AM) 8.4 mg/dL *LOW* (01/08/15 7:19 AM) Calcium Lvl [8.5-10.5 mg/dL] 3.1 mg/dL (01/10/15 8:03 AM) 4.1 mg/dL (01/09/15 5:14 AM) 2.4 mg/dL *LOW* (01/08/15 7:19 AM) Phosphorus [2.5-4.5 mg/dL] 1.7 mg/dL *LOW* (01/10/15 8:03 AM) 1.6 mg/dL *LOW* (01/09/15 5:57 AM) Magnesium Lvl [1.8-2.4 mg/dL] See Note 4 (01/09/15 5:14 AM) Magnesium Lvl [1.8-2.4] 35 unit/L (01/08/15 7:19 AM) 17 unit/L (12/30/14 6:15 AM) 18 unit/L (12/29/14 5:52 AM) ALT [0-65 unit/L] 28 unit/L (01/08/15 7:19 AM) 18 unit/L (12/30/14 6:15 AM) 18 unit/L (12/29/14 5:52 AM) AST [0-37 unit/L] 62 unit/L (01/08/15 7:19 AM) 77 unit/L (12/30/14 6:15 AM) 83 unit/L (12/29/14 5:52 AM) Alk Phos [39-136 unit/L] 0.2 mg/dL (01/08/15 7:19 AM) 0.3 mg/dL (12/30/14 6:15 AM) 0.4 mg/dL (12/29/14 5:52 AM) Bili Total [0.2-1.3 mg/dL] 0.1 mg/dL (01/08/15 7:19 AM) Bili Direct [0.0-0.3 mg/dL] 0.1 mg/dL (01/08/15 7:19 AM) Bili Indirect [0.0-1.0 mg/dL] 1.1 mMol/L (12/29/14 8:25 PM) 2.6 mMol/L *HI* (12/06/14 5:08 PM) 1.6 mMol/L (12/05/14 8:06 AM) Lactic Acid Lvl [0.5-2.2 mMol/L] 0.15 ng/mL *HI* (12/18/14 8:07 PM) Procalcitonin Lvl [0.00-0.10 ng/mL] 1Result Comment: [...] tiplied by the estimated BMI. 4Result Comment: The Magnesium result of 19.8 should be interpreted with caution due to : possible contamination. Report called to Josué Santiago by Jaspal Jj at 01/09/2015 05:44. Recollection is recommended. Read Back Ok. CARDIAC ENZYMES 1 2 3 Most recent to oldest [Reference Range]: 19 unit/L (01/05/15 6:22 PM) 15 unit/L (01/05/15 8:50 AM) 177 unit/L (12/05/14 6:37 AM) Total CK [12-191 unit/L] 1.9 ng/mL (01/05/15 6:22 PM) 1.5 ng/mL (01/05/15 8:50 AM) 3.0 ng/mL (12/05/14 6:37 AM) CK MB [0.5-3.6 ng/mL] 10.0 *HI* (01/05/15 6:22 PM) 10.0 *HI* (01/05/15 8:50 AM) 1.7 (12/05/14 6:37 AM) CK MB Index [0.0-2.5] <0.02 ng/mL (01/05/15 6:22 PM) <0.02 ng/mL (01/05/15 8:50 AM) 0.05 ng/mL (12/05/14 6:37 AM) Troponin-I [0.00-0.40 ng/mL] 121 pg/mL *HI* (12/31/14 11:04 AM) 33 pg/mL (12/05/14 6:37 AM) BNP [<=100 pg/mL] ANEMIA STUDY 1 2 3 Most recent to oldest [Reference Range]: 13 ug/dl *LOW* (12/24/14 5:57 AM) Iron [45-160 ug/dl] 11 % *LOW* (12/24/14 5:57 AM) % Satur Fe [12-57 %] 107 ug/dl *LOW* (12/24/14 5:57 AM) UIBC [110-370 ug/dl] 471 pg/mL (12/24/14 5:57 AM) Vitamin B12 Lvl [254-1320 pg/mL] 15.0 ng/mL (12/24/14 5:57 AM) Folate Lvl [>=3.0 ng/mL] 120 ug/dl *LOW* (12/24/14 5:57 AM) TIBC [228-428 ug/dl] THYROID PANEL 1 2 3 Most recent to oldest [Reference Range]: 3.550 uIU/mL (01/08/15 7:19 AM) TSH [0.360-3.740 uIU/mL] PARATHYROID PROFILE 1 2 3 Most recent to oldest [Reference Range]: 0.97 mMol/L *LOW* (12/07/14 6:15 AM) 0.74 mMol/L 1 *CRIT* (12/06/14 5:08 PM) Ca Ion WB [1.05-1.25 mMol/L] 0.88 mMol/L 2 *CRIT* (12/07/14 6:15 AM) 0.66 mMol/L *CRIT* (12/06/14 5:08 PM) Ca Norm WB [1.05-1.25 mMol/L] 1Result Comment: Critical Result(s) called to BOB Zaldivar at 12/06/2014 17:29 by niles. Read back OK. 2Result Comment: Critical Result(s) called to Jacob Kwok at 12/07/2014 06:41 by Jaspal Jj. Read back OK. TOXICOLOGY 1 2 3 Most recent to oldest [Reference Range]: 12:00 *NA* (01/02/15 1:27 PM) 08:00 *NA* (12/26/14 7:17 AM) 08:00 *NA* (12/22/14 7:00 AM) Vanco Tr TND 15.4 ug/ml *NA* (01/02/15 1:27 PM) 16.0 ug/ml *NA* (12/26/14 7:17 AM) 22.8 ug/ml *NA* (12/22/14 7:00 AM) Vanco Tr URINE CHEM 1 2 3 Most recent to oldest [Reference Range]: 249.0 mg/dL *NA* (12/06/14 5:00 PM) U Creatinine 244.0 mg/dL *NA* (12/06/14 5:00 PM) U Protein 1.0 *NA* (12/06/14 5:00 PM) U Prot/Creat 6 mEq/L *NA* (12/06/14 5:00 PM) U Sodium None Seen (01/01/15 2:55 PM) U Eos [None Seen] URINE AND STOOL 1 2 3 Most recent to oldest [Reference Range]: Marked *ABN* (12/31/14 6:00 PM) Slight *ABN* (12/20/14 5:08 PM) Clear (12/05/14 8:41 AM) UA Turbidity [Clear] Jia *NA* (12/31/14 6:00 PM) UA Color Yellow *NA* (12/20/14 5:08 PM) Yellow *NA* (12/05/14 8:41 AM) UA Color [Yellow] 5.0 (12/31/14 6:00 PM) 5.0 (12/20/14 5:08 PM) 6.0 (12/05/14 8:41 AM) UA pH [5.0-8.0] 1.035 *HI* (12/31/14 6:00 PM) 1.017 (12/20/14 5:08 PM) 1.019 (12/05/14 8:41 AM) UA Spec Grav [<=1.030] Negative mg/dL *NA* (12/31/14 6:00 PM) Negative mg/dL *NA* (12/20/14 5:08 PM) Negative mg/dL *NA* (12/05/14 8:41 AM) UA Glucose [Negative mg/dL] Negative (12/31/14 6:00 PM) Moderate *ABN* (12/20/14 5:08 PM) Negative (12/05/14 8:41 AM) UA Blood [Negative] Negative mg/dL *NA* (12/31/14 6:00 PM) Trace mg/dL *ABN* (12/20/14 5:08 PM) Trace mg/dL *ABN* (12/05/14 8:41 AM) UA Ketones [Negative mg/dL] 30 mg/dL *ABN* (12/31/14 6:00 PM) 30 mg/dL *ABN* (12/20/14 5:08 PM) 100 mg/dL *ABN* (12/05/14 8:41 AM) UA Protein [Negative mg/dL] <=1.0 mg/dL *NA* (12/31/14 6:00 PM) <=1.0 mg/dL *NA* (12/20/14 5:08 PM) 2.0 mg/dL *HI* (12/05/14 8:41 AM) UA Urobilinogen [0.1-1.0 mg/dL] Negative *NA* (12/31/14 6:00 PM) Negative *NA* (12/20/14 5:08 PM) Negative *NA* (12/05/14 8:41 AM) UA Bili [Negative] Small *ABN* (12/31/14 6:00 PM) Negative (12/20/14 5:08 PM) Negative (12/05/14 8:41 AM) UA Leuk Est [Negative] Negative (12/31/14 6:00 PM) Negative (12/20/14 5:08 PM) Negative (12/05/14 8:41 AM) UA Nitrite [Negative] 24 /HPF *HI* (12/31/14 6:00 PM) 11 /HPF *HI* (12/20/14 5:08 PM) UA WBC [0-5 /HPF] 5 /HPF *HI* (12/31/14 6:00 PM) 2 /HPF (12/20/14 5:08 PM) UA RBC [0-2 /HPF] Occasional /HPF *NA* (12/31/14 6:00 PM) UA Bacteria [None Seen /HPF] Occasional /LPF *NA* (12/31/14 6:00 PM) UA Sq Epi [Few /LPF] None Seen *NA* (12/20/14 5:08 PM) None Seen *NA* (12/05/14 8:41 AM) UA Sq Epi 9 /LPF *HI* (12/31/14 6:00 PM) 1 /LPF (12/20/14 5:08 PM) 1 /LPF (12/05/14 8:41 AM) UA Hyal Cast [0-2 /LPF] Few /LPF *NA* (12/31/14 6:00 PM) UA Mucus [None Seen /LPF] BODY FLUIDS 1 2 3 Most recent to oldest [Reference Range]: [place] *NA* (12/24/14 5:00 PM) Prot BF Type [place] *NA* (12/24/14 5:00 PM) LDH BF Type 2.9 g/dL *NA* (12/24/14 5:00 PM) Protein BF 165 unit/L *NA* (12/24/14 5:00 PM) LDH BF IMMUNOLOGY 1 2 3 Most recent to oldest [Reference Range]: 9.1 mg/dL *LOW* (12/13/14 5:28 AM) Prealbumin [18.0-45.0 mg/dL] HEMATOLOGY 1 2 3 Most recent to oldest [Reference Range]: 13.5 K/CMM *HI* (01/09/15 5:14 AM) 14.8 K/CMM *HI* (01/08/15 7:19 AM) 19.9 K/CMM *HI* (01/07/15 4:57 AM) WBC [3.7-10.4 K/CMM] 3.46 M/CMM *LOW* (01/09/15 5:14 AM) 3.27 M/CMM *LOW* (01/08/15 7:19 AM) 3.27 M/CMM *LOW* (01/07/15 4:57 AM) RBC [4.70-6.10 M/CMM] 9.9 g/dL *LOW* (01/09/15 5:14 AM) 9.2 g/dL *LOW* (01/08/15 7:19 AM) 9.0 g/dL *LOW* (01/07/15 4:57 AM) Hgb [14.0-18.0 g/dL] 31.3 % *LOW* (01/09/15 5:14 AM) 29.4 % *LOW* (01/08/15 7:19 AM) 29.8 % *LOW* (01/07/15 4:57 AM) Hct [42.0-54.0 %] 90.4 fL (01/09/15 5:14 AM) 89.9 fL (01/08/15 7:19 AM) 91.0 fL (01/07/15 4:57 AM) MCV [80.0-94.0 fL] 28.6 pg (01/09/15 5:14 AM) 28.1 pg (01/08/15 7:19 AM) 27.7 pg (01/07/15 4:57 AM) MCH [27.0-31.0 pg] 31.6 g/dL *LOW* (01/09/15 5:14 AM) 31.3 g/dL *LOW* (01/08/15 7:19 AM) 30.4 g/dL *LOW* (01/07/15 4:57 AM) MCHC [32.0-36.0 g/dL] 15.0 % *HI* (01/09/15 5:14 AM) 14.9 % *HI* (01/08/15:19 AM) 14.9 % *HI* (01/07/15 4:57 AM) RDW [11.5-14.5 %] 309 K/CMM (01/09/15 5:14 AM) 288 K/CMM (01/08/15 7:19 AM) 305 K/CMM (01/07/15 4:57 AM) Platelet [133-450 K/CMM] 8.1 fL (01/09/15 5:14 AM) 7.9 fL (01/08/15 7:19 AM) 8.1 fL (01/07/15 4:57 AM) MPV [7.4-10.4 fL] 84.9 % *HI* (01/09/15 5:14 AM) 81.0 % *HI* (01/08/15 7:19 AM) 85.9 % *HI* (01/07/15 4:57 AM) Segs [45.0-75.0 %] 7.0 % (12/31/14 11:04 AM) 6.0 % (12/29/14 8:25 PM) 33.0 % *HI* (12/07/14 3:53 AM) Bands [0.0-11.0 %] 7.9 % *LOW* (01/09/15 5:14 AM) 8.2 % *LOW* (01/08/15 7:19 AM) 6.2 % *LOW* (01/07/15 4:57 AM) Lymphocytes [20.0-40.0 %] 0.0 % (12/31/14 11:04 AM) 0.0 % (12/29/14 8:25 PM) 0.0 % (12/07/14 3:53 AM) Atypical Lymphs [<=0.0 %] 6.3 % (01/09/15 5:14 AM) 10.0 % (01/08/15 7:19 AM) 7.5 % (01/07/15 4:57 AM) Monocytes [2.0-12.0 %] 0.4 % (01/09/15 5:14 AM) 0.1 % (01/07/15 4:57 AM) 9.0 % *HI* (01/04/15 4:26 AM) Eosinophils [0.0-4.0 %] 0.5 % (01/09/15 5:14 AM) 0.8 % (01/08/15 7:19 AM) 0.3 % (01/07/15 4:57 AM) Basophils [0.0-1.0 %] 3.0 % *HI* (12/31/14 11:04 AM) 3.0 % *HI* (12/29/14 8:25 PM) 12.0 % *HI* (12/07/14 3:53 AM) Metamyelocytes [0.0-1.0 %] 3.0 % *HI* (12/31/14 11:04 AM) 2.0 % *HI* (12/07/14 3:53 AM) 2.0 % *HI* (12/06/14 3:59 AM) Myelocytes [<=0.0 %] 11.4 K/CMM *HI* (01/09/15 5:14 AM) 12.0 K/CMM *HI* (01/08/15 7:19 AM) 17.2 K/CMM *HI* (01/07/15 4:57 AM) Segs-Bands # [1.5-8.1 K/CMM] 1.1 K/CMM (01/09/15 5:14 AM) 1.2 K/CMM (01/08/15 7:19 AM) 1.2 K/CMM (01/07/15 4:57 AM) Lymphocytes # [1.0-5.5 K/CMM] 0.8 K/CMM (01/09/15 5:14 AM) 1.5 K/CMM *HI* (01/08/15 7:19 AM) 1.5 K/CMM *HI* (01/07/15 4:57 AM) Monocytes # [0.0-0.8 K/CMM] 0.1 K/CMM (01/09/15 5:14 AM) 1.7 K/CMM *HI* (01/04/15 4:26 AM) 2.5 K/CMM *HI* (01/03/15 5:34 AM) Eosinophils # [0.0-0.5 K/CMM] 0.1 K/CMM (01/09/15 5:14 AM) 0.1 K/CMM (01/08/15 7:19 AM) 0.1 K/CMM (01/07/15 4:57 AM) Basophils # [0.0-0.2 K/CMM] 100 *NA* (12/07/14 3:53 AM) Tot Cell Ct Normal (01/07/15 4:57 AM) Normal (01/03/15 5:34 AM) Normal (12/31/14 11:04 AM) RBC Morph Clumped (01/07/15 4:57 AM) Normal (01/03/15 5:34 AM) Normal (12/31/14 11:04 AM) Plt Morph 20.6 seconds *HI* (12/28/14 3:38 AM) 14.1 seconds (12/19/14 5:19 AM) PT [12.0-14.7 seconds] 1.73 *HI* (12/28/14 3:38 AM) 1.06 (12/19/14 5:19 AM) INR [0.85-1.17] 44.0 seconds *HI* (12/28/14 3:38 AM) 33.5 seconds (12/19/14 5:19 AM) 37.6 seconds *HI* (12/05/14 3:01 PM) PTT [22.9-35.8 seconds] MOLECULAR DIAGNOSTIC 1 2 3 Most recent to oldest [Reference Range]: Negative (01/01/15 6:28 PM) C difficile DNA [Negative] BACTERIAL - SEROLOGY 1 2 3 Most recent to oldest [Reference Range]: Negative (12/05/14 3:34 PM) MRSA by PCR Immunizations No data available for this section [...] Plan Extracted from: Title: Clinical Document Author: Gordy Starks MD Date: 01/10/15 SUBJECTIVE/OBJECTIVE: No high flow canula 100%. Tolerated diet. No cough. Trach #6 and PMV. s/p board Abx. PICC line. OOB to chair 3 hours today. Bilateral foot drop. 01/01/15 Echo: 1) The study quality is technically difficult. 2) There is normal left ventricular systolic function. 3) The LV ejection fraction is estimated at 60%-65%. 4) The right ventricular cavity size is moderately enlarged. 5) There is no pericardial effusion. 6) The inferior vena cava appears dilated in size. Review of Systems: HEENT: No diplopia, facial changes, eyes/vision changes, swelling/mass/LN, hoarseness. Respiratory: No cough or wheezing. Cardiovascular: LL edema on diuretics. No PND, orthopnea, chest pain, palpitations. Gastrointestinal: No abd pain, diarrhea, change of BM. Genitourinary: No polyuria, dysuria, hematuria. Integumentary: no rash. Extremities: no V.V. LL edema on diuretics. Neurologic: No dysarthria, aphasia. Skinny/Lymph: No LN, fever, wt loss. Endocrine: no goiter, no polydipsia Psychiatric: positive for anxiety. PE: V/S noted. PEG. H&N: NELSY, NL EOM. NL oropharyngeal exam, no thrush, lesions, or ulcerations. No raised JVP, lymphadenopathy, or thyromegaly. Chest: Decreased air entry bilateral. No wheezing. Minimal upper crackles. Heart: NL S1/S2. No m/g/r. Abdomen: No tenderness or distension. No rebound or rigidity. No hepatosplenomegaly, ascites, or masses felt. BS ++. LL: trace edema, symmetrical. No calf muscle tenderness. No signs of infection. Right femoral vein CVC/HD cath. INFORMATION TECH: trach #6. NL facial appreance. Nonfocal. Back: no pressure sores. Images: CXR and CT chest w/out contrast: reviewed. [facility] BUN: 25 mg/dL (01/10/15) Hct: 31.3 % (01/09/15) Hgb: 9.9 g/dL (01/09/15) MCH: 28.6 pg (01/09/15) MCHC: 31.6 g/dL (01/09/15) MCV: 90.4 fL (01/09/15) MPV: 8.1 fL (01/09/15) Platelet: 309 K/CMM (01/09/15) RBC: 3.46 M/CMM (01/09/15) RDW: 15.0 % (01/09/15) WBC: 13.5 K/CMM (01/09/15) CK MB: 1.9 ng/mL (01/05/15) A/P: 1. Prolonged ICU stay due to severe COPD exacerbation, resp failure, difficult wean, and s/p septic shock. 2. HCAP/aspiration, RUL. s/p bronch 12/07/14. 3. s/p tracheostomy and PEG. 4. Acalculous cholecystitis, s/p surgery. 5. ALFONSO: resolved. 6. Moderate protein calorie malnutrition. 7. HEP C. 8. Bilateral heel stage II pressure ulcer. 9. Deconditioning. PS PRN. Mg. I/O. Foot boot. LTAC today. PT/OT. d/w RN and pt. Extracted from: Title: Clinical Document Author: Julio Carreno MD Date: 12/27/14 DATE OF PROCEDURE: 12/27/2014. PREOPERATIVE DIAGNOSIS: 1. Concerns for acalculous cholecystitis. 2. Abnormal imaging of the gallbladder. 3. Respiratory failure. 4. Acute community-acquired pneumonia. 5. Chronic obstructive pulmonary disease. 6. Hepatitis C. 7. Hypertension. 8. Recent sepsis with shock. POSTOPERATIVE DIAGNOSIS: 1. Concerns for acalculous cholecystitis. 2. Abnormal imaging of the gallbladder. 3. Respiratory failure. 4. Acute community-acquired pneumonia. 5. Chronic obstructive pulmonary disease. 6. Hepatitis C. 7. Hypertension. 8. Recent sepsis with shock. TECHNICAL PROCEDURE PERFORMED: Laparoscopic cholecystectomy. SURGEON: Julio Carreno M.D. ANESTHESIA: General endotracheal. SURGICAL WOUND CLASSIFICATION: Clean contaminate. OPERATIVE TIME: 35 minutes. ESTIMATED BLOOD LOSS: Minimal. FLUID REPLACEMENT: Per anesthesia. SPECIMENS SENT FOR PATHOLOGY: Gallbladder. COMPLICATIONS: None. FINDINGS: 1. Moderately inflamed gallbladder. 2. Well visualized critical view. CONDITION: To recovery, stable. POSTOPERATIVE PLAN: To the floor INDICATIONS: A 64-year-old gentleman that presented to [facility] with abdominal pain. At this time, the history and physical as well as laboratory studies was consistent with diagnosis of acalculous cholecystitis. Therefore, the option of laparoscopic versus open cholecystectomy was offered to the patient. Risks and benefits of the procedure were explained and the patient voiced understanding and consented to procedure. OPERATIVE NARRATIVE: Patient was taken the operating room, placed on the operating table, intubated by anesthesia. The abdomen was prepped and draped in the usual sterile fashion. A timeout was called and the correct patient, as well as procedure was verified. The patient had SCDs on for thromboembolic prophylaxis and received antibiotics within 1 hour of the incision. Umbilical region was identified, 0.5% Marcaine was infused followed 1-cm incision followed by dissection of the fascia. The fascia was grasped with a Familia clamp and a Veress was place, confirmed with a positive saline drop test. Pneumoperitoneum was achieved with CO2 gas up to 15 mmHg. A 1-cm trocar was placed in the umbilical incision. The patient was placed in reverse Trendelenburg position airplaned to the left; 0.5 cm trocars were introduced in the epigastrium, right upper quadrant right periumbilical regions under direct visualization. The gallbladder was identified. It was grasped at the fundus and retracted to the head, infundibulum was identified, grasped and retracted towards the legs, exposing the triangle of Calot. The cystic duct was identified, it was dissected out from all surrounding structures, clipped proximally 3 times, distally once, transected in between. Of note, a well visualized critical view was identified; therefore we bypassed cholangiogram. The dissection continued to identify the cystic artery, it was dissected out from all surrounding structures, clipped proximally twice, distally once, and transected in between. The gallbladder was then elevated off the liver bed using electrocautery. It was placed in the Endopouch bag and removed from the abdomen through the umbilical port. The liver bed was inspected, all residual bleeding was identified and controlled. The abdomen was irrigated with copious amounts water until clear return was achieved. The patient was placed flat and all residual irrigation was suctioned out. The pneumoperitoneum was decom pressed and the fascia at the umbilical port was closed using 0 Vicryl in a [id number] manner, and the skin was closed using 4-0 Monocryl in running subcuticular manner. The skin and three 5-mm ports were closed using 4-0 Monocryl in simple U-stitch manner. The patient was extubated in the operating room and transferred to recovery in stable condition. All instrument and laparotomy counts were correct.
--- OUTSIDE RECORDS SUMMARY | 2018-09-08 06:35 | XMS REPORT | Summary of Care ---
Author Author [facility] Organization [facility] Address Unknown Phone Unavailable Encounter SAUD Varner(JOYCE) [id number] Date(s): 07/10/15 - 07/11/15 [facility] [address] [place] [address]- Discharge Diagnosis: Facial abrasion Discharge Diagnosis: Acute head injury Discharge Diagnosis: Face lacerations Discharge Disposition: Home Attending Physician: Becky Bynum DO Vital Signs 1 2 3 Most recent to oldest [Reference Range]: 162.56 cm (07/10/15 7:40 PM) Height 98.0 DegF (07/11/15 12:15 AM) 98.1 DegF (07/10/15 7:40 PM) Temperature Oral [96.4-99.1 DegF] 121/72 mmHg (07/11/15 12:15 AM) 135/77 mmHg (07/10/15 11:15 PM) 119/65 mmHg (07/10/15 9:41 PM) Blood Pressure [90-140/60-90 mmHg] 20 BRMIN (07/11/15 12:15 AM) 22 BRMIN *HI* (07/10/15 11:15 PM) 18 BRMIN (07/10/15 9:41 PM) Respiratory Rate [14-20 BRMIN] 90 bpm (07/11/15 12:15 AM) 86 bpm (07/10/15 11:15 PM) 96 bpm (07/10/15 9:41 PM) Peripheral Pulse Rate [60-100 bpm] 61.364 kg (07/10/15 7:40 PM) Weight 23.22 m2 (07/10/15 7:40 PM) Body Mass Index Problem List Condition Effective Dates Status Health Status Informant Asthma(Confirmed) Active COPD(Confirmed) Active Hepatitis Active C(Confirmed) Hypertension(Confirm Active ed) Smoker(Confirmed) Active Allergies, Adverse Reactions, Alerts Substance Reaction Severity Status chlorhexidine containing Active compounds NSAIDs Active Vioxx Active Medications Keflex 500 mg oral capsule 500 mg=1 cap, PO, QID, X 7 day, # 28 cap, 0 Refill(s) Start Date: 07/10/15 Stop Date: 07/17/15 Status: Ordered Results ELECTROLYTES Most recent to 1 oldest [Reference Range]: Sodium Lvl [135-145 138 mEq/L mEq/L] (07/10/15 8:03 PM) Potassium Lvl 3.7 mEq/L [3.5-5.1 mEq/L] (07/10/15 8:03 PM) Chloride Lvl [95-109 102 mEq/L mEq/L] (07/10/15 8:03 PM) CO2 [24-32 mEq/L] 28 mEq/L (07/10/15 8:03 PM) AGAP [10.0-20.0 11.7 mEq/L mEq/L] (07/10/15 8:03 PM) CHEM PANEL Most recent to 1 oldest [Reference Range]: Creatinine Lvl 0.96 mg/dL [0.50-1.40 mg/dL] (07/10/15 8:03 PM) eGFR 83 mL/min/1.73m2 1 *NA* (07/10/15 8:03 PM) BUN [7-22 mg/dL] 9 mg/dL (07/10/15 8:03 PM) B/C Ratio [6-25] 9 (07/10/15 8:03 PM) Glucose Lvl [70-99 96 mg/dL mg/dL] (07/10/15 8:03 PM) Total Protein 7.2 g/dL [6.4-8.4 g/dL] (07/10/15 8:03 PM) Albumin Lvl [3.5-5.0 3.8 g/dL g/dL] (07/10/15 8:03 PM) Globulin [2.0-4.0 3.4 g/dL g/dL] (07/10/15 8:03 PM) A/G Ratio [0.7-1.6] 1.1 (07/10/15 8:03 PM) Calcium Lvl 8.6 mg/dL [8.5-10.5 mg/dL] (07/10/15 8:03 PM) ALT [0-65 unit/L] 40 unit/L (07/10/15 8:03 PM) AST [0-37 unit/L] 40 unit/L *HI* (07/10/15 8:03 PM) Alk Phos [39-136 62 unit/L unit/L] (07/10/15 8:03 PM) Bili Total [0.2-1.3 0.5 mg/dL mg/dL] (07/10/15 8:03 PM) 1Result Comment: The eGFR is calculated [...] be mul tiplied by the estimated BMI. HEMATOLOGY Most recent to 1 oldest [Reference Range]: WBC [3.7-10.4 K/CMM] 8.3 K/CMM (07/10/15 8:03 PM) RBC [4.70-6.10 5.04 M/CMM M/CMM] (07/10/15 8:03 PM) Hgb [14.0-18.0 g/dL] 13.8 g/dL *LOW* (07/10/15 8:03 PM) Hct [42.0-54.0 %] 43.8 % (07/10/15 8:03 PM) MCV [80.0-94.0 fL] 86.8 fL (07/10/15 8:03 PM) MCH [27.0-31.0 pg] 27.4 pg (07/10/15 8:03 PM) MCHC [32.0-36.0 31.6 g/dL g/dL] *LOW* (07/10/15 8:03 PM) RDW [11.5-14.5 %] 12.9 % (07/10/15 8:03 PM) Platelet [133-450 223 K/CMM K/CMM] (07/10/15 8:03 PM) MPV [7.4-10.4 fL] 7.1 fL *LOW* (07/10/15 8:03 PM) Segs [45.0-75.0 %] 64.8 % (07/10/15 8:03 PM) Lymphocytes 25.3 % [20.0-40.0 %] (07/10/15 8:03 PM) Monocytes [2.0-12.0 7.8 % %] (07/10/15 8:03 PM) Eosinophils [0.0-4.0 1.1 % %] (07/10/15 8:03 PM) Basophils [0.0-1.0 1.0 % %] (07/10/15 8:03 PM) Segs-Bands # 5.4 K/CMM [1.5-8.1 K/CMM] (07/10/15 8:03 PM) Lymphocytes # 2.1 K/CMM [1.0-5.5 K/CMM] (07/10/15 8:03 PM) Monocytes # [0.0-0.8 0.7 K/CMM K/CMM] (07/10/15 8:03 PM) Eosinophils # 0.1 K/CMM [0.0-0.5 K/CMM] (07/10/15 8:03 PM) Basophils # [0.0-0.2 0.1 K/CMM K/CMM] (07/10/15 8:03 PM) PT [12.0-14.7 13.2 seconds seconds] (07/10/15 8:03 PM) INR [0.85-1.17] 0.97 (07/10/15 8:03 PM) PTT [22.9-35.8 28.2 seconds seconds] (07/10/15 8:03 PM) Immunizations Vaccine Date Refusal Reason diphtheria/pertussis, acel/tetanus adult 4/20/16 Procedures Procedure Date Related Diagnosis Body Site [...]
--- OUTSIDE RECORDS SUMMARY | 2018-09-08 06:35 | XMS REPORT | Summary of Care ---
Author Author [facility] Organization [facility] Address Unknown Phone Unavailable Encounter SAUD Varner(JOYCE) [id number] Date(s): 12/05/14 - 01/10/15 [facility] [address] [place] [address]- Final: Discharge Disposition: Senior Care Care Attending Physician: Yoshi Fernandez MD Admitting [...] day, Stop date: 01/17/15 15:45:00 Notes: Max [id number]=0545kj/day (4 gm/day). (Same as: Tylenol) Start Date: [...] 11:26:00 Notes: (Same As: Tummarc)Calcium Carbonate 500 gs=655 mg elemental calcium Dose=_ mg calcium carbonate [...] 11:26:00 Notes: (Same As: Tums)Calcium Carbonate 500 yh=428 mg elemental calcium Dose=_ mg calcium carbonate [...] 100 mL, Route: IVPB, Drug form: INJ, [id number], Dosing Weight 60, kg, Star t date: 12/11/14 9:00:00, Duration: 30 day, Stop date: 01/09/15 9:00:00 Notes: (Same as: Diflucan) Do not refrigerate Start Date: 12/11/14 Stop Date: 12/12/14 Status: Discontinued Diflucan 400 mg, 200 mL, Route: IVPB, Drug form: INJ, [id number], Dosing Weight 60, kg, Star t date: [...] mL subcutaneous solution 40 mg=0.4 mL, SUB-Q, [id number], 0 Refill(s) Start Date: 01/10/15 Status: Ordered [...] 100 mL, Route: IVPB, Drug form: SOLN, [id number], Dosing Weight 60, kg, Sta rt date: [...] 0.4 mL, Route: SUB-Q, Drug form: INJ, [id number], Dosing Weight 60, kg, Sta rt date: 12/20/14 16:00:00, Duration: 30 day, Stop date: 01/18/15 16:00:00 Notes: (Same as: Lovenox) Start Date: 12/20/14 Stop Date: 01/06/15 Status: Discontinued Lovenox 40 mg, 0.4 mL, Route: SUB-Q, Drug form: INJ, [id number], Dosing Weight 60, kg, Sta rt date: 12/08/14 20:00:00, Stop date: 01/06/15 20:00:00 Notes: (Same as: Lovenox) Start Date: 12/08/14 Stop Date: 12/25/14 Status: Voided With Results Lovenox 40 mg, 0.4 mL, Route: SUB-Q, Drug form: INJ, [id number], Dosing Weight 60, kg, Sta rt date: 12/05/14 20:00:00, Duration: 30 day, Stop date: 01/03/15 20:00:00 Notes: (Same as: Lovenox) Start Date: 12/05/14 Stop Date: 12/08/14 Status: Discontinued Lovenox 40 mg, 0.4 mL, Route: SUB-Q, Drug form: INJ, [id number], Dosing Weight 60, kg, Sta rt date: [...] 11:26:00 Notes: (Same as: Mag-Ox 400)Magnesium oxide 359is=126fr elemental magnesiumDose= ____mg magnesium oxide (___mg elemental [...] 11:26:00 Notes: (Same as: Mag-Ox 400)Magnesium oxide 727mi=398pz elemental magnesiumDose= ____mg magnesium oxide (___mg elemental [...] by either central venous catheter or peripherally-inserted lyntete tral catheter (PICC) line. Start Date: 12/05/14 [...] 11:26:00 Notes: (Same As: Tums)Calcium Carbonate 500 zh=751 mg elemental calcium Dose=_ mg calcium carbonate ( mg elemental calcium) Start Date: 01/06/15 Stop Date: 01/10/15 Status: Discontinued Tums 1,000 mg, 2 tab, Route: PO, Drug form: CHEWTAB, PRN, Dosing Weight 60, kg, PRN A bnormal Lab Result, FOR ICU USE ONLY, Start date: 01/06/15 8:38:00, Stop date: 04/09/14 11:26:00 Notes: (Same As: Tums)Calcium Carbonate 500 li=150 mg elemental calcium Dose=_ mg calcium carbonate ( mg elemental calcium) Start Date: 01/06/15 Stop Date: 01/10/15 Status: Discontinued Tylenol 650 mg, Route: PO, Drug form: TAB, ONCE, Dosing Weight 59.091, kg, Priority: STA T, Start date: 12/05/14 6:52:00, Stop date: 12/05/14 6:52:00 Start Date: 12/05/14 Stop Date: 12/05/14 Status: Completed Tylenol 650 mg, 1 supp, Route: TN, Drug form: SUPP, Q4H, Dosing Weight 59.091, [...] 8:34:00, Stop date: 01/17/15 15:45:00 Notes: Max igdhsmxhatmuw=8262sm/day (4 gm/day). (Same as: Tylenol) Start Date: 01/06/15 Stop Date: 01/10/15 Status: Discontinued Tylenol 650 mg, 1 supp, Route: TN, Drug form: SUPP, Q4H, Dosing Weight 59.091, kg, PRN F or Temp > 101 F, Start date: 01/06/15 8:34:00, Stop date: 02/03/15 13:00:00 Start Date: 01/06/15 Stop Date: 01/10/15 Status: Discontinued vancomycin 1 gm, 200 mL, Route: IVPB, Drug form: INJ, [id number], Dosing Weight 59.091, kg, St art date: [...] 150 mL, Route: IVPB, Drug form: INJ, [id number], Start date: 12/23/14 8:00: 00, Duration: 30 day, Stop date: 01/21/15 20:00:00 Notes: TIME CRITICAL MEDICATIONSame as: VancocinInfusion rate< 1000 mg: infuse over 1 [id number] - 1500 mg: infuse over 1.5 [id number] - 2000 mg: infuse over 2 hours> 2001 mg: infuse over 2.5 hours Start Date: 12/23/14 Stop Date: 12/25/14 Status: Discontinued vancomycin 1 gm, 200 mL, Route: IVPB, Drug form: INJ, [id number], Dosing Weight 59.091, kg, St art date: [...] 200 mL, Route: IVPB, Drug form: INJ, [id number], Dosing Weight 60, kg, Start date: 12/31/14 12:00:00, Duration: 30 day, Stop date: 01/29/15 12:00:00 Notes: TIME CRITICAL MEDICATION Start Date: 12/31/14 Stop Date: 01/02/15 Status: Discontinued vancomycin 1 gm, 200 mL, Route: IV, Drug form: INJ, [id number], Dosing Weight 60, kg, Start da te: [...] of infection. Right femoral vein CVC/HD cath. 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 NL facial appreance. Nonfocal. Back: [...] INDICATIONS: A 64-year-old gentleman that presented to [facility] with abdominal pain. At this [...] was closed using 0 Vicryl in a [id number]-[id number] manner, and the skin was closed using 4-0 Monocryl in running subcuticular manner. The skin and three 5-mm ports were closed using 4-0 Monocryl in simple U-stitch manner. The patient was extubated in the operating room and transferred to recovery in stable condition. All instrument and laparotomy counts were correct.
--- OUTSIDE RECORDS SUMMARY | 2018-09-08 06:35 | XMS REPORT | Summary of Care ---
Author Author [facility] Organization [facility] Address Unknown Phone Unavailable Encounter HQ Jazmine_rich(FIN) [id number] Date(s): 05/08/15 - 05/08/15 [facility] [address] [place] [address]- [phone] Discharge Disposition: Home Attending Physician: Rita Garcia MD Vital Signs No data available for this section Problem List Condition Effective Dates Status Health Status Informant Asthma(Confirmed) Active COPD(Confirmed) Active Hepatitis Active C(Confirmed) Hypertension(Confirm Active ed) Smoker(Confirmed) Active Allergies, Adverse Reactions, Alerts Substance Reaction Severity Status chlorhexidine containing Active compounds NSAIDs Active Vioxx Active Medications No data available for this section Results No data available for this section Immunizations No data available for this section [...]
--- OUTSIDE RECORDS SUMMARY | 2018-09-08 06:35 | XMS REPORT ---
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 Allergies, Adverse Reactions, Alerts This patient has no known allergies or adverse reactions. Medications This patient has no known medications. Encounters Start Date/Time End Date/Time Encounter Type Admission Type Attending Clinicians Care Facility Care Department Encounter ID 2018-07-17 01:43:00 2018-07-16 19:34:00 Inpatient E [facility] [id number] Results Test Description Test Time Test Comments Text Results Atomic Results Result Comments ELBOW RIGHT COMPLETE [place] [address] Patient Name: JORDI HUERTA MR #: [id number] : 1950 Age/Sex: 66/M Req #: [id number] Adm Physician: Ordered by: JANKI GOVEA MD Report #: [id number] Location: ER Room/Bed: Procedure: [id number] DX/ELBOW RIGHT COMPLETE Exam Date: Exam Time: REPORT STATUS: Signed ELBOW RIGHT COMPLETE Comparison: None Clinical history: Status post fall, pain Findings: Suboptimal lateral view without evidence of effusion. No acute fracture or dislocation. Impression: No acute bony abnormality Signed by: Dr Devin Gomez MD on 03/03/2017 11:51 PM Dictated By: DEVIN GOMEZ MD 50 Transcribed By: ZHEN on 03/03/172350 COPY TO: JANKI GOVEA MD CT CERVICAL SPINE WO [place] [address] Patient Name: JORDI HUERTA MR #: [id number] : 1950 Age/Sex: 66/M Req #: [id number] Adm Physician: Ordered by: JANKI GOVEA MD Report #: [id number] Location: ER Room/Bed: Procedure: [id number] CT/CT CERVICAL SPINE WO Exam Date: Exam Time: REPORT STATUS: Signed History: Fall, pain. Hematoma right side of the forehead. Comparison studies:None Technique: Axial images were obtained from the brain and cervical spine. Coronal and sagittal images reconstructed from the axial data. Intravenous contrast: None Findings: Head CT: Scalp/skull: No abnormalities. Extra-axial spaces: No masses. No fluid collections. Brain sulci: Mildly prominent. Ventricles: Mild compensatory dilatation. No hydrocephalus. Parenchyma: Few hypodensities in the supratentorial white matter are small vessel ischemic changes. Small chronic lacunar infarct at the right subinsular region. No masses, hemorrhage, acute or chronic cortical vascular insults. Sellar/suprasellar region: No abnormalities. Craniocervical junction: Patent foramen magnum. No Chiari one malformation. Incidental findings: Atherosclerotic calcifications in the carotid siphons Cervical spine CT: Fractures: None. Soft tissues: No gross abnormalities. Atlantoaxial articulation: Degenerative changes without an acute abnormality. Alignment: Reversal of the cervical spine lordosis centered at C3-4-5. No scoliosis. Cervicomedullary junction: No abnormalities. Patent foramen magnum. Vertebrae: No infection or neoplasm. Degenerative changes: Facet hypertrophy and uncinate process hypertrophy results in mild left foraminal narrowing at C2-3, moderate left foraminal narrowing at C3-4, mild right and moderate left foraminal narrowing at C4-5, moderate bilateral foraminal narrowing at C5-6, mild left foraminal narrowing at C6-7. Posterior disc osteophyte complexes results in mild canal stenosis at C4-5 and C5-6. Incidental findings: Atherosclerotic calcifications of the carotids bulbs. Emphysematous changes of both lung apices Impression: Head CT: 1. No acute intracranial abnormality. 2. Minimal chronic microvascular ischemic changes of the matter. Cervical spine CT: 1. No acute abnormalities. Degenerative changes as described above. 2. Cannot exclude ligament, spinal cord and or vascular abnormalities on the basis of this examination. Signed by: DR Harsh Ruiz M.D. on 03/03/2017 11:54 PM Dictated By: HARSH BRAND MD 53 Transcribed By: ZHEN on 03/03/172353 COPY TO: JANKI GOVEA MD CT BRAIN WO [place] [address] Patient Name: JORDI HUERTA MR #: [id number] : 1950 Age/Sex: 66/M Req #: [id number] Adm Physician: Ordered by: JANKI GOVEA MD Report #: [id number] Location: ER Room/Bed: Procedure: [id number] CT/CT BRAIN WO Exam Date: Exam Time: REPORT STATUS: Signed History: Fall, pain. Hematoma right side of the forehead. Comparison studies:None Technique: Axial images were obtained from the brain and cervical spine. Coronal and sagittal images reconstructed from the axial data. Intravenous contrast: None Findings: Head CT: Scalp/skull: No abnormalities. Extra-axial spaces: No masses. No fluid collections. Brain sulci: Mildly prominent. Ventricles: Mild compensatory dilatation. No hydrocephalus. Parenchyma: Few hypodensities in the supratentorial white matter are small vessel ischemic changes. Small chronic lacunar infarct at the right subinsular region. No masses, hemorrhage, acute or chronic cortical vascular insults. Sellar/suprasellar region: No abnormalities. Craniocervical junction: Patent foramen magnum. No Chiari one malformation. Incidental findings: Atherosclerotic calcifications in the carotid siphons Cervical spine CT: Fractures: None. Soft tissues: No gross abnormalities. Atlantoaxial articulation: Degenerative changes without an acute abnormality. Alignment: Reversal of the cervical spine lordosis centered at C3-4-5. No scoliosis. Cervicomedullary junction: No abnormalities. Patent foramen magnum. Vertebrae: No infection or neoplasm. Degenerative changes: Facet hypertrophy and uncinate process hypertrophy results in mild left foraminal narrowing at C2-3, moderate left foraminal narrowing at C3-4, mild right and moderate left foraminal narrowing at C4-5, moderate bilateral foraminal narrowing at C5-6, mild left foraminal narrowing at C6-7. Posterior disc osteophyte complexes results in mild canal stenosis at C4-5 and C5-6. Incidental findings: Atherosclerotic calcifications of the carotids bulbs. Emphysematous changes of both lung apices Impression: Head CT: 1. No acute intracranial abnormality. 2. Minimal chronic microvascular ischemic changes of the matter. Cervical spine CT: 1. No acute abnormalities. Degenerative changes as described above. 2. Cannot exclude ligament, spinal cord and or vascular abnormalities on the basis of this examination. Signed by: DR Harsh Ruiz M.D. on 03/03/2017 11:54 PM Dictated By: HARSH BRAND MD [id number] Transcribed By: ZHEN on 03/03/17 3156 COPY TO: JANKI GOVEA MD
--- OUTSIDE RECORDS SUMMARY | 2018-09-08 06:35 | XMS REPORT | Summary of Care ---
Author Author [facility] Organization [facility] Address Unknown Phone Unavailable Encounter SAUD Varner(JOYCE) [id number] Date(s): 07/17/15 - 07/18/15 [facility] [address] [place] [address]- [phone] Discharge Disposition: Home Attending Physician: Eunice Castillo MD Admitting Physician: Eunice Castillo MD Vital Signs 1 2 3 Most recent to oldest [Reference Range]: 165.1 cm (07/18/15 12:36 AM) 172.72 cm (07/17/15 6:36 PM) Height 97.8 DegF (07/18/15 7:39 AM) 98.3 DegF (07/18/15 3:39 AM) 97.7 DegF (07/18/15 12:34 AM) Temperature Oral [96.4-99.1 DegF] 169/90 mmHg *HI* (07/18/15 7:39 AM) 113/68 mmHg (07/18/15 3:39 AM) 121/68 mmHg (07/18/15 12:34 AM) Blood Pressure [90-140/60-90 mmHg] 16 BRMIN (07/18/15 7:39 AM) 16 BRMIN (07/18/15 3:39 AM) 18 BRMIN (07/18/15 2:13 AM) Respiratory Rate [14-20 BRMIN] 101 bpm *HI* (07/18/15 7:39 AM) 93 bpm (07/18/15 12:34 AM) 80 bpm (07/17/15 6:36 PM) Peripheral Pulse Rate [60-100 bpm] 59.091 kg (07/18/15 12:36 AM) 65.455 kg (07/17/15 6:36 PM) Weight 21.68 m2 (07/18/15 12:36 AM) 21.94 m2 (07/17/15 6:36 PM) Body Mass Index Problem List Condition Effective Dates Status Health Status Informant Asthma(Confirmed) Active COPD(Confirmed) Active Hepatitis Active C(Confirmed) Hypertension(Confirm Active ed) Smoker(Confirmed) Active Allergies, Adverse Reactions, Alerts Substance Reaction Severity Status chlorhexidine containing Active compounds NSAIDs Active Vioxx Active Medications RN-Bring pt's own XENADERM to pharmacy for labeling RN-Bring pt's own XENADERM to pharmacy for labeling, Attn:RN, Drug form: MD SC, Route: MISC, QSHIFT, 07/18/15 16:00:00 CDT, Duration: 30 day, Stop date: 8:00:00 CDT Start Date: 07/18/15 Stop Date: 07/18/15 Status: Canceled acetaminophen 325 mg, 10.15 mL, Route: PO, Drug form: LIQ, Q4H, Dosing Weight 59.091, kg, PRN Pain 1-3/Temp > 100.4 F, Start date: 07/18/15 10:52:00 CDT, Duration: 30 day, Stop date: 08/17/15 10:51:00 CDT Start Date: 07/18/15 Stop Date: 07/18/15 Status: Discontinued albuterol-ipratropium 2.5-0.5 mg inhalation solution 3 mL, Route: NEB, Drug Form: SOLN, Dosing Weight 59.091, kg, RQID, PRN as needed for shortness of breath or wheezing, Start date: 07/18/15 10:52:00 CDT, Duratio n: 30 day, Stop date: 08/17/15 10:51:00 CDT Notes: (Same as: Antoniab) Start Date: 07/18/15 Stop Date: 07/18/15 Status: Discontinued amLODIPine 10 mg, 2 tab, Route: PO, Drug form: TAB, Daily, Dosing Weight 65.455, kg, Start date: 07/18/15 9:00:00 CDT, Duration: 30 day, Stop date: 08/16/15 9:00:00 CDT Notes: (Same as: Norvasc) Start Date: 07/18/15 Stop Date: 07/18/15 Status: Discontinued Ativan 2 mg, 2 tab, Route: PO, Drug form: TAB, TID, Dosing Weight 65.455, kg, PRN Anxie ty, Start date: 07/17/15 23:05:00 CDT, Duration: 30 day, Stop date: 08/16/15 23: 04:00 CDT Notes: (Same as: Ativan) Start Date: 07/17/15 Stop Date: 07/18/15 Status: Discontinued Ativan 1 mg, 0.5 mL, Route: IV, Drug form: INJ, Q6H, Dosing Weight 65.455, kg, PRN as n eeded for anxiety, Start date: 07/17/15 23:06:00 CDT, Duration: 30 day, Stop chantel e: 08/16/15 23:05:00 CDT Notes: (Same as: Ativan) Start Date: 07/17/15 Stop Date: 07/18/15 Status: Discontinued balsam Mckinley/castor oil/trypsin topical spray 1 appl, Route: TOP, Daily, Drug form: SPRY, Start date: 07/19/15 9:00:00 CDT, Du ration: 30 day, Stop date: 08/17/15 9:00:00 CDT Start Date: 07/19/15 Stop Date: 07/18/15 Status: Canceled Carafate 1 g oral tablet 1 gm=1 tab, PO, QID-Before Meals, # 56 tab, 0 Refill(s) Start Date: 07/18/15 Stop Date: 08/01/15 Status: Ordered diphenhydrAMINE 12.5 mg, 0.25 mL, Route: IVP, Drug form: INJ, Q6H, Dosing Weight 59.091, kg, PRN Itching, Start date: 07/18/15 10:52:00 CDT, Duration: 30 day, Stop date: 10:51:00 CDT Notes: (Same as: Benadryl) Start Date: 07/18/15 Stop Date: 07/18/15 Status: Discontinued docusate 100 mg, 1 cap, Route: PO, Drug form: CAP, BID, Dosing Weight 65.455, kg, PRN Con stipation, Start date: 07/18/15 0:33:00 CDT, Duration: 30 day, Stop date: 0:32:00 CDT Notes: (Same as: Colace) (Do Not Crush) Start Date: 07/18/15 Stop Date: 07/18/15 Status: Discontinued enoxaparin 40 mg, 0.4 mL, Route: SUB-Q, Drug form: INJ, [id number], Dosing Weight 59.091, kg, Start date: 07/18/15 11:00:00 CDT, Duration: 30 day, Stop date: 08/16/15 11:00: 00 CDT Notes: (Same as: Lovenox) Start Date: 07/18/15 Stop Date: 07/18/15 Status: Discontinued folic acid 1 mg, 1 tab, Route: PO, Drug form: TAB, Daily, Dosing Weight 65.455, kg, Start d ate: 07/18/15 9:00:00 CDT, Duration: 5 day, Stop date: 07/22/15 9:00:00 CDT Notes: (Same as: Folvite) Start Date: 07/18/15 Stop Date: 07/18/15 Status: Discontinued folic acid 1 mg oral tablet 1 mg=1 tab, PO, Daily, # 30 tab, 0 Refill(s) Start Date: 07/18/15 Stop Date: 08/17/15 Status: Ordered furosemide 20 mg oral tablet 20 mg, 1 tab, Route: PO, Drug form: TAB, Daily, Dosing Weight 65.455, kg, Start date: 07/18/15 9:00:00 CDT, Duration: 30 day, Stop date: 08/16/15 9:00:00 CDT Notes: (Same as: Lasix) May cause GI upset. Give with food or milk. Start Date: 07/18/15 Stop Date: 07/18/15 Status: Discontinued lactulose 10 g/15 mL oral syrup 30 gm, 45 mL, Route: GT, Drug Form: SYRP, Dosing Weight 59.091, kg, BID, PRN as needed for constipation, Start date: 07/18/15 10:52:00 CDT, Duration: 30 day, St op date: 08/17/15 10:51:00 CDT Notes: (Same as:Chronulac) Start Date: 07/18/15 Stop Date: 07/18/15 Status: Discontinued LORazepam 4 mg, 2 mL, Route: IVP, Drug form: INJ, Q2H, Dosing Weight 65.455, kg, PRN Other -See Comment, CIWA Score 15-20, Start date: 07/17/15 23:09:00 CDT, Duration: 30 day, Stop date: 08/16/15 23:08:00 CDT Notes: (Same as: Ativan) Start Date: 07/17/15 Stop Date: 07/18/15 Status: Discontinued LORazepam 2 mg, 1 mL, Route: IVP, Drug form: INJ, Q2H, Dosing Weight 65.455, kg, PRN Other -See Comment, CIWA Score 8 -14, Start date: 07/17/15 23:09:00 CDT, Duration: 30 day, Stop date: 08/16/15 23:08:00 CDT Notes: (Same as: Ativan) Start Date: 07/17/15 Stop Date: 07/18/15 Status: Discontinued LORazepam 6 mg, 3 mL, Route: IVP, Drug form: INJ, Q2H, Dosing Weight 65.455, kg, PRN Other -See Comment, CIWA Score > 20, Start date: 07/17/15 23:09:00 CDT, Duration: 30 day, Stop date: 08/16/15 23:08:00 CDT Notes: (Same as: Ativan) Start Date: 07/17/15 Stop Date: 07/18/15 Status: Discontinued morphine Sulfate 2 mg, 1 mL, Route: IVP, Drug form: INJ, Q4H, Dosing Weight 65.455, kg, PRN Pain Score 7-10, Start date: 07/18/15 0:33:00 CDT, Duration: 30 day, Stop date: 08/16 0:32:00 CDT Notes: (Same as:MORPhine Sulfate) Start Date: 07/18/15 Stop Date: 07/18/15 Status: Discontinued multivitamin 1 tab, Route: PO, Drug Form: TAB, ONCE, Start date: 07/17/15 23:22:00 CDT, Stop date: 07/17/15 23:22:00 CDT Notes: (Same as:One Tab Daily, Tab-A-Janak + Beta Carotene) Give with food. Start Date: 07/17/15 Stop Date: 07/18/15 Status: Completed multivitamin 1 tab, Route: PO, Drug Form: TAB, Dosing Weight 65.455, kg, Daily, Start date: 0 07/18/15 9:00:00 CDT, Duration: 5 day, Stop date: 07/22/15 9:00:00 CDT Notes: (Same as:One Tab Daily, Tab-A-Janak + Beta Carotene) Give with food. Start Date: 07/18/15 Stop Date: 07/18/15 Status: Discontinued ondansetron 4 mg, 2 mL, Route: IVP, Drug form: INJ, ONCE, Dosing Weight 65.455, kg, Priority : STAT, Start date: 07/17/15 18:48:00 CDT, Stop date: 07/17/15 18:48:00 CDT Notes: (Same as: Arnoldo) MEDICATION WASTE Product Size: 4 mgProduct Was nedra: ___ mg Start Date: 07/17/15 Stop Date: 07/17/15 Status: Completed ondansetron 4 mg, 2 mL, Route: IVP, Drug form: INJ, Q6H, Dosing Weight 65.455, kg, PRN Nause a & Vomiting, Start date: 07/18/15 0:33:00 CDT, Duration: 30 day, Stop date: 08/17/15 0:32:00 CDT Notes: (Same as: Arnoldo) MEDICATION WASTE Product Size: 4 mgProduct Was nedra: ___ mg Start Date: 07/18/15 Stop Date: 07/18/15 Status: Discontinued pantoprazole 40 mg, 1 pkt, Route: PO, Drug form: GRAN/REC, Before Dinner, Dosing Weight 59.09 1, kg, Start date: 07/18/15 16:30:00 CDT, Duration: 30 day, Stop date: 08/16/15 16:30:00 CDT Notes: Same as: Protonix Mix in 5 mL apple juice or applesauce for oral & 10mL apple juice for NG tube Start Date: 07/18/15 Stop Date: 07/18/15 Status: Canceled pantoprazole 40 mg oral granule 40 mg, PO, Daily, # 40 tab, 0 Refill(s) Start Date: 07/18/15 Stop Date: 08/17/15 Status: Ordered ProAir HFA 90 mcg/inh inhalation aerosol with adapter 2 puff, Route: INHALATION, Drug Form: AERO/A, Dosing Weight 65.455, kg, Q4H, PRN Wheezing, Start date: 07/17/15 23:13:00 CDT, Duration: 30 day, Stop date: 08/15 23:12:00 CDT Notes: Same as: Ventolin HFAWASTE: Aerosol - Return to Pharmacy Start Date: 07/17/15 Stop Date: 07/18/15 Status: Discontinued Saline Flush 0.9% 10 mL, Route: IVP, Drug Form: INJ, Dosing Weight 65.455, kg, PRN, PRN Line Flush , Start date: 07/17/15 18:48:00 CDT, Duration: 30 day, Stop date: 08/16/15 18:47 :00 CDT Notes: (Same as: BD Posiflush) Start Date: 07/17/15 Stop Date: 07/18/15 Status: Discontinued sertraline 50 mg, 1 tab, Route: PO, Drug form: TAB, Daily, Dosing Weight 65.455, kg, Start date: 07/18/15 9:00:00 CDT, Duration: 30 day, Stop date: 08/16/15 9:00:00 CDT Notes: (Same as: Zoloft) Start Date: 07/18/15 Stop Date: 07/18/15 Status: Discontinued Sodium Chloride 0.9% (Bolus) IV 1,000 mL, 1,000 ml/hr, Infuse Over: 1 Hour, Route: IV, ONCE, Priority: STAT, Dos ing Weight 65.455 kg, Start date: 07/17/15 20:08:00 CDT, Duration: 1 doses or ti mes, Stop date: 07/17/15 20:08:00 CDT Start Date: 07/17/15 Stop Date: 07/17/15 Status: Completed Sodium Chloride 0.9% IV 1,000 mL + folic acid IV 1 mg Daily + thiamine IV 100 mg Daily 1,000 mL, Rate: 100 ml/hr, Infuse over: 10 hr, Route: IV, Dosing Weight 65.455 k g, Total Volume: 1,001.2, Start date: 07/17/15 23:09:00 CDT, Duration: 3 day, St op date: 07/20/15 23:08:00 CDT Start Date: 07/17/15 Stop Date: 07/18/15 Status: Discontinued thiamine 100 mg, 1 tab, Route: PO, Drug form: TAB, Daily, Dosing Weight 65.455, kg, Start date: 07/18/15 9:00:00 CDT, Duration: 5 day, Stop date: 07/22/15 9:00:00 CDT Notes: (Same As: Vitamin B1) Start Date: 07/18/15 Stop Date: 07/18/15 Status: Discontinued thiamine 100 mg oral tablet 100 mg=1 tab, PO, Daily, X 30 day, # 30 tab, 0 Refill(s) Start Date: 07/18/15 Stop Date: 08/17/15 Status: Ordered Results ELECTROLYTES 1 2 3 Most recent to oldest [Reference Range]: 142 mEq/L (07/18/15 5:32 AM) 135 mEq/L (07/17/15 6:54 PM) Sodium Lvl [135-145 mEq/L] 3.9 mEq/L (07/18/15 5:32 AM) 4.1 mEq/L (07/17/15 6:54 PM) Potassium Lvl [3.5-5.1 mEq/L] 106 mEq/L (07/18/15 5:32 AM) 98 mEq/L (07/17/15 6:54 PM) Chloride Lvl [95-109 mEq/L] 24 mEq/L (07/18/15 5:32 AM) 28 mEq/L (07/17/15 6:54 PM) CO2 [24-32 mEq/L] 15.9 mEq/L (07/18/15 5:32 AM) 13.1 mEq/L (07/17/15 6:54 PM) AGAP [10.0-20.0 mEq/L] CHEM PANEL 1 2 3 Most recent to oldest [Reference Range]: 0.69 mg/dL (07/18/15 5:32 AM) 0.93 mg/dL (07/17/15 6:54 PM) Creatinine Lvl [0.50-1.40 mg/dL] 100 mL/min/1.73m2 1 *NA* (07/18/15 5:32 AM) 87 mL/min/1.73m2 2 *NA* (07/17/15 6:54 PM) eGFR 13 mg/dL (07/18/15 5:32 AM) 11 mg/dL (07/17/15 6:54 PM) BUN [7-22 mg/dL] 66 mg/dL *LOW* (07/18/15 5:32 AM) 95 mg/dL (07/17/15 6:54 PM) Glucose Lvl [70-99 mg/dL] 8.5 mg/dL (07/18/15 5:32 AM) 9.2 mg/dL (07/17/15 6:54 PM) Calcium Lvl [8.5-10.5 mg/dL] 26.0 uMol/L (07/17/15 6:54 PM) Ammonia [<=45.0 uMol/L] 1Result Comment: The eGFR is calculated using [...] 3 Most recent to oldest [Reference Range]: 81 unit/L (07/18/15 5:32 AM) 91 unit/L (07/18/15 1:19 AM) 123 unit/L (07/17/15 6:54 PM) Total CK [12-191 unit/L] 7.5 ng/mL *HI* (07/18/15 5:32 AM) 8.2 ng/mL *HI* (07/18/15 1:19 AM) 6.0 ng/mL *HI* (07/17/15 6:54 PM) CK MB [0.5-3.6 ng/mL] 9.3 *HI* (07/18/15 5:32 AM) 9.0 *HI* (07/18/15 1:19 AM) 4.9 *HI* (07/17/15 6:54 PM) CK MB Index [0.0-2.5] <0.02 ng/mL (07/18/15 5:32 AM) <0.02 ng/mL (07/18/15 1:19 AM) <0.02 ng/mL (07/17/15 6:54 PM) Troponin-I [0.00-0.40 ng/mL] DRUG SCREEN 1 2 3 Most recent to oldest [Reference Range]: Negative *NA* (07/17/15 8:11 PM) U Amph Scr [Negative] Negative *NA* (07/17/15 8:11 PM) U Jelena Scr [Negative] Negative *NA* (07/17/15 8:11 PM) U Benzodia Scr [Negative] Negative *NA* (07/17/15 8:11 PM) U Cocaine Scr [Negative] Positive *ABN* (07/17/15 8:11 PM) U Opiate Scr [Negative] Negative *NA* (07/17/15 8:11 PM) U Phencyc Scr [Negative] Negative *NA* (07/17/15 8:11 PM) U Cannab Scr [Negative] See Note (07/17/15 8:11 PM) UDS Note TOXICOLOGY 1 2 3 Most recent to oldest [Reference Range]: .317 % 1 *CRIT* (07/17/15 6:54 PM) Etoh (%) 317 mg/dL 2 *CRIT* (07/17/15 6:54 PM) Ethanol Lvl 1Result Comment: Critical Result(s) called to Karol Ravi at 07/17/2015 19:54_ by_AN. Read back OK. 2Result Comment: Critical Result(s) called to Karol Ravi at 07/17/2015 19:54_ by_AN. Read back OK. URINE AND STOOL 1 2 3 Most recent to oldest [Reference Range]: Clear (07/17/15 8:11 PM) UA Turbidity [Clear] Yellow *NA* (07/17/15 8:11 PM) UA Color [Yellow] 5.0 (07/17/15 8:11 PM) UA pH [5.0-8.0] 1.016 (07/17/15 8:11 PM) UA Spec Grav [<=1.030] Negative mg/dL *NA* (07/17/15 8:11 PM) UA Glucose [Negative mg/dL] Negative (07/17/15 8:11 PM) UA Blood [Negative] Negative mg/dL *NA* (07/17/15 8:11 PM) UA Ketones [Negative mg/dL] Negative mg/dL (07/17/15 8:11 PM) UA Protein [Negative mg/dL] <=1.0 mg/dL *NA* (07/17/15 8:11 PM) UA Urobilinogen [0.1-1.0 mg/dL] Negative *NA* (07/17/15 8:11 PM) UA Bili [Negative] Negative (07/17/15 8:11 PM) UA Leuk Est [Negative] Negative (07/17/15 8:11 PM) UA Nitrite [Negative] 2 /HPF (07/17/15 8:11 PM) UA WBC [0-5 /HPF] 2 /HPF (07/17/15 8:11 PM) UA RBC [0-2 /HPF] None Seen *NA* (07/17/15 8:11 PM) UA Sq Epi 7 /LPF *HI* (07/17/15 8:11 PM) UA Hyal Cast [0-2 /LPF] HEMATOLOGY 1 2 3 Most recent to oldest [Reference Range]: 6.9 K/CMM (07/18/15 5:32 AM) 9.8 K/CMM (07/17/15 6:54 PM) WBC [3.7-10.4 K/CMM] 4.77 M/CMM (07/18/15 5:32 AM) 5.24 M/CMM (07/17/15 6:54 PM) RBC [4.70-6.10 M/CMM] 13.2 g/dL *LOW* (07/18/15 5:32 AM) 14.3 g/dL (07/17/15 6:54 PM) Hgb [14.0-18.0 g/dL] 41.2 % *LOW* (07/18/15 5:32 AM) 45.3 % (07/17/15 6:54 PM) Hct [42.0-54.0 %] 86.5 fL (07/18/15 5:32 AM) 86.4 fL (07/17/15 6:54 PM) MCV [80.0-94.0 fL] 27.6 pg (07/18/15 5:32 AM) 27.3 pg (07/17/15 6:54 PM) MCH [27.0-31.0 pg] 31.9 g/dL *LOW* (07/18/15 5:32 AM) 31.6 g/dL *LOW* (07/17/15 6:54 PM) MCHC [32.0-36.0 g/dL] 13.3 % (07/18/15 5:32 AM) 13.3 % (07/17/15 6:54 PM) RDW [11.5-14.5 %] 188 K/CMM (07/18/15 5:32 AM) 161 K/CMM (07/17/15 6:54 PM) Platelet [133-450 K/CMM] 7.2 fL *LOW* (07/18/15 5:32 AM) 7.4 fL (07/17/15 6:54 PM) MPV [7.4-10.4 fL] 64.7 % (07/18/15 5:32 AM) 65.3 % (07/17/15 6:54 PM) Segs [45.0-75.0 %] 20.2 % (07/18/15 5:32 AM) 20.0 % (07/17/15 6:54 PM) Lymphocytes [20.0-40.0 %] 9.2 % (07/18/15 5:32 AM) 10.3 % (07/17/15 6:54 PM) Monocytes [2.0-12.0 %] 4.6 % *HI* (07/18/15 5:32 AM) 3.1 % (07/17/15 6:54 PM) Eosinophils [0.0-4.0 %] 1.3 % *HI* (07/18/15 5:32 AM) 1.3 % *HI* (07/17/15 6:54 PM) Basophils [0.0-1.0 %] 4.4 K/CMM (07/18/15 5:32 AM) 6.4 K/CMM (07/17/15 6:54 PM) Segs-Bands # [1.5-8.1 K/CMM] 1.4 K/CMM (07/18/15 5:32 AM) 2.0 K/CMM (07/17/15 6:54 PM) Lymphocytes # [1.0-5.5 K/CMM] 0.6 K/CMM (07/18/15 5:32 AM) 1.0 K/CMM *HI* (07/17/15 6:54 PM) Monocytes # [0.0-0.8 K/CMM] 0.3 K/CMM (07/18/15 5:32 AM) 0.3 K/CMM (07/17/15 6:54 PM) Eosinophils # [0.0-0.5 K/CMM] 0.1 K/CMM (07/18/15 5:32 AM) 0.1 K/CMM (07/17/15 6:54 PM) Basophils # [0.0-0.2 K/CMM] 12.4 seconds (07/17/15 6:54 PM) PT [12.0-14.7 seconds] 0.90 (07/17/15 6:54 PM) INR [0.85-1.17] 23.4 seconds (07/17/15 6:54 PM) PTT [22.9-35.8 seconds] Immunizations Vaccine Date Refusal Reason diphtheria/pertussis, acel/tetanus adult 07/10/15 Procedures Procedure Date Related Diagnosis Body Site Rotator cuff repair Social History Social History Type Response Alcohol Current Smoking Status Current every day smoker; Type: Cigarettes; Lives with someone who smokes; Cigarette Smoking Last 365 Days Yes; Reg Smoking Cessation Counseling No Assessment and Plan No data available for this section
--- NOTE | 2018-09-08 07:09 | Diagnostic Imaging Report ---
Examination: Single AP view of the chest. COMPARISON: None. INDICATION: Shortness of breath DISCUSSION: The lungs are hyperinflated with linear opacities in the right midlung and right apex, compatible with scar. Symmetric nodular opacities project over the lower lung zones compatible with nipple shadows. No airspace consolidation or sizable pleural effusion. Atherosclerotic calcification of the thoracic aorta. Normal heart size without overt pulmonary edema. No acute osseous abnormality. High riding right humeral head likely related to chronic rotator cuff tear. IMPRESSION: Pulmonary hyperinflation compatible with emphysema. Scattered fibrotic changes. No consolidative pneumonia. Signed by: Dr. Mukesh Dang M.D. on 09/08/2018 7:06 AM
[2018-09-08 07:16] LABS: ABG PH 7.29 (7.31-7.41)
[2018-09-08 07:17] LABS: ABG HCO3 47 mmol/L (23-28); ABG PCO2 98 mmHg (41-51); ABG PO2 67 mmHg (80-105)
[2018-09-08 07:17] LABS: BASOPHILS % 0.4 % (0.0-1.0); EOSINOPHILS # (AUTO) 0.1 (0.0-0.4); EOSINOPHILS % 0.5 % (0.0-6.0); HEMATOCRIT 41.1 % (38.2-49.6); HEMOGLOBIN 12.3 g/dL (14.0-18.0); LYMPHOCYTES % 18.4 % (18.0-39.1); MEAN CORPUSCULAR HEMOGLOBIN 28.4 pg (28-32); MEAN CORPUSCULAR HGB CONC 29.9 g/dL (31-35); MEAN CORPUSCULAR VOLUME 94.9 fL (81-99); MONOCYTES # (AUTO) 0.8 (0.2-0.8); NEUTROPHILS # (AUTO) 7.9 (2.1-6.9); NEUTROPHILS % 71.3 % (38.7-80.0); PLATELET COUNT 183 x10e3/uL (140-360); RED BLOOD COUNT 4.33 x10e6/uL (4.3-5.7); RED CELL DISTRIBUTION WIDTH 12.3 % (11.7-14.4)
[2018-09-08 07:30] LABS: INR 0.85; PROTHROMBIN TIME 12.1 seconds (11.9-14.5)
[2018-09-08] MEDS ORDERED: METHYLPREDNISOLONE SOD SUCC 125 MG/2ML VIAL IV STA (07:30)
[2018-09-08 07:45] LABS: ALANINE AMINOTRANSFERASE 306 IU/L (0-55); ALBUMIN 3.4 g/dL (3.5-5.0); ALBUMIN/GLOBULIN RATIO 1.2 (0.8-2.0); ALKALINE PHOSPHATASE 60 IU/L (40-150); ANION GAP 13.9 mmol/L (8-16); BLOOD UREA NITROGEN 14 mg/dL (7-26); BUN/CREATININE RATIO 16 (6-25); CALCIUM 9.6 mg/dL (8.4-10.2); CHLORIDE 86 mmol/L (98-107); CREATINE KINASE 47 IU/L (30-200); CREATININE, SERUM 0.89 mg/dL (0.72-1.25); EST GLOMERULAR FILTRATION RATE > 60 ML/MIN (60-); GLUCOSE 162 mg/dL (74-118); LIPASE 25 U/L (8-78); MAGNESIUM 1.9 MG/DL (1.3-2.1); POTASSIUM 3.9 mmol/L (3.5-5.1); SODIUM 142 mmol/L (136-145)
[2018-09-08 07:47] LABS: B-TYPE NATRIURETIC PEPTIDE2 28.3 pg/mL (0-100)
[2018-09-08 07:49] LABS: CARBON DIOXIDE 46 mmol/L (22-29)
[2018-09-08] MEDS ORDERED: FAMOTIDINE20 MG PO (08:01)
[2018-09-08] MEDS ORDERED: SERTRALINE HCL100 MG PO (08:01)
[2018-09-08] MEDS ORDERED: TRAZODONE HCL150 MG PO (08:01)
[2018-09-08] MEDS ORDERED: DONEPEZIL HCL5 MG PO (08:01)
[2018-09-08] MEDS ORDERED: LORAZEPAM1 MG PO (08:01)
[2018-09-08] MEDS ORDERED: AMLODIPINE BESY10 MG PO (08:01)
[2018-09-08] MEDS ORDERED: LOSARTAN POTASS50 MG PO (08:01)
[2018-09-08] MEDS ORDERED: ONDANSETRON HCL8 MG SL (08:01)
[2018-09-08] MEDS ORDERED: PREDNISONE5 MG PO (08:01)
[2018-09-08] MEDS ORDERED: FINASTERIDE5 MG PO (08:01)
[2018-09-08] MEDS ORDERED: BUSPIRONE HCL7.5 MG PO (08:01)
[2018-09-08] MEDS ORDERED: MECLIZINE HCL12.5 MG PO (08:01)
[2018-09-08] MEDS ORDERED: HYDROCODON-ACE1 EAC9 PO (08:01)
[2018-09-08] MEDS ORDERED: CEFEPIME 2 GM/NS 0.9% 100 ML 100 ML IV SCH (08:15)
[2018-09-08] MEDS ORDERED: NALOXONE HCL INJ 0.4 MG/ML AMP IV PRN (08:30)
[2018-09-08 08:58] LABS: BILIRUBIN,URINE NEGATIVE (NEGATIVE); CLARITY,URINE CLOUDY (CLEAR); COLOR,URINE YELLOW (YELLOW); KETONES,URINE NEGATIVE (NEGATIVE); LEUKOCYTE ESTERASE ,URINE TRACE (NEGATIVE); NITRITE,URINE NEGATIVE (NEGATIVE); PROTEIN,URINE DIPSTICK 1+ (NEGATIVE); URINE UROBILINOGEN 1 mg/dL (0.2 - 1)
[2018-09-08] MEDS: AZITHROMYCIN 500MG/NS 250 ML 250 ML IV SCH ×2 (09:00→09:10)
[2018-09-08 09:11] LABS: ABG HCO3 49 mmol/L (23-28); ABG PCO2 91 mmHg (41-51); ABG PH 7.33 (7.31-7.41); ABG PO2 65 mmHg (80-105)
[2018-09-08 09:54] LABS: BACTERIA,URINE RARE /HPF; EPITHELIAL CELLS,URINE FEW /LPF
[2018-09-08] MEDS: ALBUTEROL SULF 0.083% NEB SOLN 3 ML NEB NEB SCH ×4 (11:10→23:10)
[2018-09-08] MEDS: IPRATROPIUM BROMIDE 0.02% 2.5 ML NEB NEB SCH ×4 (11:10→23:10)
[2018-09-08 11:55] LABS: ABG PH 7.34 (7.31-7.41)
[2018-09-08 11:56] LABS: ABG HCO3 49 mmol/L (23-28); ABG PCO2 91 mmHg (41-51); ABG PO2 131 mmHg (80-105)
[2018-09-08] MEDS ORDERED: METHYLPREDNISOLONE SOD SUCC 125 MG/2ML VIAL IV SCH (14:00)
[2018-09-08 15:32] LABS: CREATINE KINASE MB 7.8 ng/mL (0-5.0)
[2018-09-08] MEDS: LORAZEPAM 0.5 MG TAB PO PRN (17:30)
[2018-09-08] MEDS ORDERED: MECLIZINE HCL 12.5 MG TAB PO PRN (17:45)
[2018-09-08] MEDS ORDERED: LORAZEPAM 1 MG TAB PO PRN (17:45)
[2018-09-08] MEDS ORDERED: ACETAZOLAMIDE 250 MG TAB PO SCH (18:30)
[2018-09-08] MEDS: BUSPIRONE HCL 10 MG TABLET PO SCH (18:35)
[2018-09-08] MEDS: CEFEPIME 2 GM/NS 0.9% 100 ML 100 ML IV SCH (20:15)
[2018-09-08] MEDS: METHYLPREDNISOLONE SOD SUCC 125 MG/2ML VIAL IV SCH (20:15)
[2018-09-08] MEDS: DONEPEZIL HCL 5 MG TAB PO SCH (20:17)
[2018-09-08] MEDS ORDERED: TRAZODONE HCL 50 MG TAB ONE (20:57)
[2018-09-09] VITALS (18 sets, daily range): BP systolic 84–133; BP diastolic 41–87
--- NOTE | 2018-09-09 00:14 | Consultation ---
DATE OF CONSULTATION: Pulmonary Critical Care Consultation CHIEF COMPLAINT: Difficulty breathing and agitation. HISTORY OF PRESENT ILLNESS: The patient is a 67-year-old man. He has a history of severe COPD. [facility] He notes worsening dyspnea and anxiety. According to the family, he has not been eating well. He is very anxious. He also has had confusion. When he came to the Emergency Department, he received some bronchodilators and Solu-Medrol. He was started on BiPAP and notes that his breathing has improved. PAST SURGICAL HISTORY: 1. Status post rotator cuff repair. 2. Status post cholecystectomy. PAST MEDICAL HISTORY: 1. Severe COPD. 2. Hepatitis C. 3. Chronic back pain. 4. Hypertension. SOCIAL HISTORY: The patient recently quit smoking. He is not a drinker. [facility]. FAMILY HISTORY: Noncontributory. ALLERGIES: HE REPORTS BEING ALLERGIC TO NONSTEROIDAL ANTI-INFLAMMATORY MEDICATIONS. REVIEW OF SYSTEMS: He has some agitation and some disorientation. He has no fevers. He is not complaining of headache. There is no neck pain. He is not having any chest pain. He has no cough or phlegm production. He has no abdominal pain. He has no nausea or vomiting. He does not complain of any leg swelling. He does have some confusion, but no focal neurological abnormalities. PHYSICAL EXAMINATION: VITAL SIGNS: The blood pressure is 125/76 and the saturation is 95% on 4 L and the pulse is 96. The patient is afebrile. HEENT: Shows no facial swelling or erythema. The oropharynx is normal. LYMPHATIC: Shows no submandibular, cervical, or supraclavicular adenopathy. CARDIAC: Reveals regular rate and rhythm with a normal S1, S2. There are no murmurs or rubs heard. LUNGS: Auscultation of lungs reveals a prolonged expiratory phase bilaterally. There is no wheezing. ABDOMEN: Soft and nontender. There is no rebound or guarding. EXTREMITIES: Show no leg edema or calf tenderness. There is no cyanosis or clubbing. NEUROLOGIC: Shows confusion and disorientation. He did not have any focal abnormalities. LABORATORY DATA: The blood gas is 7.34 with a CO2 of 91, bicarbonate of 131 and CO2 of 49. The BUN to creatinine ratio is normal. The carbon dioxide is 46. The ALT is 181 and the ALT is 306. The white blood cell count is 11 and the hemoglobin is 12.3. The platelet count is 183. RADIOGRAPHIC DATA: Chest x-ray shows a hyperinflated lungs consistent with emphysema. IMPRESSION: 1. Acute on chronic hypercapnic respiratory failure. 2. Chronic obstructive pulmonary disease with acute exacerbation. 3. Metabolic encephalopathy. 4. Moderate protein-calorie malnutrition. 5. Active hepatitis C. PLAN: 1. Decrease Solu-Medrol to 30 mg IV q.12: The high doses of Solu-Medrol could worsen his metabolic encephalopathy. 2. Continue oxygen and bronchodilators. 3. Low-dose Diamox to decrease serum carbon dioxide. 4. Dietary evaluation. 5. Monitor liver function tests. Troy Ribera MD [facility] /[id number]
[2018-09-09 01:15] LABS: CREATINE KINASE MB 6.6 ng/mL (0-5.0)
[2018-09-09] MEDS: ALBUTEROL SULF 0.083% NEB SOLN 3 ML NEB NEB SCH ×7 (02:20→23:05)
[2018-09-09] MEDS: IPRATROPIUM BROMIDE 0.02% 2.5 ML NEB NEB SCH ×7 (02:20→23:05)
[2018-09-09 05:11] LABS: BASOPHILS % 0.1 % (0.0-1.0); HEMATOCRIT 36.2 % (38.2-49.6); HEMOGLOBIN 10.9 g/dL (14.0-18.0); LYMPHOCYTES # (AUTO) 0.5 (1.0-3.2); LYMPHOCYTES % 6.3 % (18.0-39.1); MEAN CORPUSCULAR HEMOGLOBIN 28.3 pg (28-32); MEAN CORPUSCULAR HGB CONC 30.1 g/dL (31-35); MONOCYTES # (AUTO) 0.3 (0.2-0.8); MONOCYTES % 3.5 % (4.4-11.3); NEUTROPHILS # (AUTO) 6.8 (2.1-6.9); NEUTROPHILS % 88.4 % (38.7-80.0); PLATELET COUNT 141 x10e3/uL (140-360); RED BLOOD COUNT 3.85 x10e6/uL (4.3-5.7); RED CELL DISTRIBUTION WIDTH 12.1 % (11.7-14.4)
[2018-09-09 05:33] LABS: ANION GAP 10.2 mmol/L (8-16); BLOOD UREA NITROGEN 17 mg/dL (7-26); BUN/CREATININE RATIO 22 (6-25); CALCIUM 9.1 mg/dL (8.4-10.2); CHLORIDE 89 mmol/L (98-107); CREATININE, SERUM 0.78 mg/dL (0.72-1.25); EST GLOMERULAR FILTRATION RATE > 60 ML/MIN (60-); GLUCOSE 127 mg/dL (74-118); POTASSIUM 4.2 mmol/L (3.5-5.1); SODIUM 138 mmol/L (136-145)
[2018-09-09 05:36] LABS: CARBON DIOXIDE 43 mmol/L (22-29)
[2018-09-09 07:01] LABS: ALBUMIN 3.1 g/dL (3.5-5.0); BILIRUBIN,DIRECT 0.4 mg/dL (0.0-0.5)
[2018-09-09] MEDS: SERTRALINE HCL 100 MG TAB PO SCH (08:15)
[2018-09-09] MEDS: BUSPIRONE HCL 10 MG TABLET PO SCH ×2 (08:15→17:21)
[2018-09-09] MEDS: METHYLPREDNISOLONE SOD SUCC 125 MG/2ML VIAL IV SCH (08:15)
[2018-09-09] MEDS: AZITHROMYCIN 500MG/NS 250 ML 250 ML IV SCH (08:15)
[2018-09-09] MEDS: FINASTERIDE 5 MG TAB PO SCH (08:15)
[2018-09-09] MEDS: FAMOTIDINE 20 MG TAB PO SCH (08:15)
[2018-09-09] MEDS: AMLODIPINE BESYLATE 10 MG TAB PO SCH (08:15)
[2018-09-09] MEDS: CEFEPIME 2 GM/NS 0.9% 100 ML 100 ML IV SCH ×2 (09:00→20:44)
[2018-09-09] MEDS ORDERED: PREDNISONE 5 MG TAB PO SCH (09:00)
[2018-09-09] MEDS ORDERED: ACETAZOLAMIDE 250 MG TAB PO SCH (13:00)
--- NOTE | 2018-09-09 14:24 | Progress Note ---
DATE: SUBJECTIVE: The patient is not complaining of dyspnea or cough. He still has some intermittent confusion. PHYSICAL EXAMINATION: VITAL SIGNS: The patient is afebrile. The blood pressure is 133/73 and the saturation is 96% on 2 L. HEENT: No facial swelling or erythema. The oropharynx is normal. LYMPHATIC: No submandibular, cervical, or supraclavicular adenopathy. CARDIAC: Regular rate and rhythm with normal S1, S2. There are no murmurs or rubs heard. LUNGS: Auscultation of lungs reveals decreased breath sounds at the bases. There is a prolonged expiratory phase. ABDOMEN: Soft, nontender. There is no rebound or guarding. EXTREMITIES: No leg edema or calf tenderness. There is no cyanosis or clubbing. SKIN: No rashes. IMPRESSION: 1. Acute on chronic hypercapnic respiratory failure. 2. Metabolic encephalopathy. 3. Chronic obstructive pulmonary disease. 4. Moderate protein-calorie malnutrition. 5. Active hepatitis C. PLAN: 1. Continue to taper steroids. 2. Continue oxygen and bronchodilators. 3. Dietary evaluation. 4. Low-dose Diamox. 5. Transfer out of intensive care unit. Troy Ribera MD [facility]/MOD[facility] /[id number]
[2018-09-09] MEDS: ENOXAPARIN SOD INJ 40 MG/0.4 ML SYR SC SCH (17:21)
[2018-09-09] MEDS ORDERED: ENOXAPARIN SOD INJ 40 MG/0.4 ML SYR SC SCH (18:15)
[2018-09-09] MEDS: TRAZODONE HCL 50 MG TAB PO PRN (20:44)
[2018-09-09] MEDS: METHYLPREDNISOLONE SOD SUCC 40 MG/ML VIAL 1ML IV SCH (20:44)
[2018-09-09] MEDS: MIRTAZAPINE 15 MG TAB PO SCH (20:44)
[2018-09-09] MEDS: DONEPEZIL HCL 5 MG TAB PO SCH (20:44)
[2018-09-09] MEDS ORDERED: TRAZODONE HCL 50 MG TAB PO SCH (21:00)
--- NOTE | 2018-09-09 21:55 | Consultation ---
DATE OF CONSULTATION: 09/09/2018 Psychiatric Consultation REASON FOR CONSULTATION: To evaluate the patient's anxiety, mood, and dementia. HISTORY OF PRESENT ILLNESS: The patient is a 67-year-old male, admitted to the hospital for bronchitis and COPD exacerbation. Psychiatric consultation is called to evaluate the patient's mood. As per medical record, the patient has a history of severe COPD, hepatitis C, chronic back pain, and hypertension. Psychiatric consultation to evaluate the patient's mood. Upon evaluation today, the patient is found to be sitting in the room with his family members. He is alert, awake, and oriented to situation. He wants his family members to be present during the assessment. The patient states he is hospitalized due to anxiety. He appears to be somewhat forgetful. He admits to feeling depressed due to his health, recent passing of his spouse. He reports feeling helpless at times. Denies any hopelessness at this time. Denies any suicidal ideation. Denies any hallucination. He reports poor appetite, but denies any problem with sleep. He is not agitated or combative. The patient claims that he gets very anxious, especially when he has shortness of breath. The patient claims he has been anxious for the last 2 years, but worsened for last 1 year. PAST PSYCHIATRIC HISTORY: The patient reports history of anxiety and depression. He is on medication for his mood and anxiety. He denies past suicide attempts. He denies any alcohol or drugs. FAMILY HISTORY: Denies. SOCIAL HISTORY: The patient stated he lives in an assisted living facility. MENTAL STATUS EXAM: The patient is elderly male. He is alert, awake, and oriented to situation. His mood is depressed and anxious. Affect congruent with mood. Insight and judgment are fair. Thought process is concrete. No delusion or paranoia elicited. CURRENT MEDICATIONS: 1. Cefepime. 2. BuSpar 10 mg p.o. b.i.d. 3. Proscar. 4. Pepcid. 5. Norvasc. 6. Zoloft 150 mg p.o. daily. 7. Azithromycin. 8. Trazodone 150 mg p.o. at bedtime. 9. Aricept 5 mg p.o. at bedtime. 10. Acetazolamide. 11. Lovenox. 12. Ativan p.r.n. 13. Atrovent. 14. Proventil. 15. Diamox. 16. Methylprednisolone. 17. Narcan. CURRENT LABS: WBC 7.73, RBC 3.85, hemoglobin 10.9, hematocrit 36.2, and platelets 141. Sodium 138, potassium 4.2, chloride 89, CO2 of 43, BUN 17, creatinine 0.78, AST 155, ALT 280. ASSESSMENT: 1. Major depressive disorder, recurrent, moderate. 2. Generalized anxiety disorder. 3. Unspecified dementia without behavior disturbances. PLAN: 1. Plan is to continue with Aricept 5 mg p.o. at bedtime. 2. Continue Ativan 0.5 mg p.o. q.6 hours p.r.n. 3. Change trazodone from 150 mg p.o. at bedtime to 50 mg p.o. at bedtime p.r.n. 4. Continue Zoloft 150 mg p.o. daily. 5. Continue BuSpar 10 mg p.o. b.i.d. 6. Add Remeron 15 mg p.o. at bedtime. 7. Monitor for mood. 8. Supportive therapy. 9. Discussed with nursing staff. 10. Discussed with family members. Thank you for this consultation. Dictated by Latrice Becker PA-C Sherie Núñez MD [facility] /[id number]
[2018-09-10] VITALS (9 sets, daily range): BP systolic 118–145; BP diastolic 67–87
[2018-09-10] MEDS: IPRATROPIUM BROMIDE 0.02% 2.5 ML NEB NEB SCH ×6 (03:10→23:07)
[2018-09-10] MEDS: ALBUTEROL SULF 0.083% NEB SOLN 3 ML NEB NEB SCH ×6 (03:10→23:07)
[2018-09-10 03:27] LABS: BASOPHILS % 0.1 % (0.0-1.0); HEMATOCRIT 38.8 % (38.2-49.6); HEMOGLOBIN 11.7 g/dL (14.0-18.0); LYMPHOCYTES # (AUTO) 0.5 (1.0-3.2); LYMPHOCYTES % 4.7 % (18.0-39.1); MEAN CORPUSCULAR HEMOGLOBIN 28.5 pg (28-32); MEAN CORPUSCULAR HGB CONC 30.2 g/dL (31-35); MEAN CORPUSCULAR VOLUME 94.4 fL (81-99); MONOCYTES # (AUTO) 0.5 (0.2-0.8); MONOCYTES % 4.7 % (4.4-11.3); NEUTROPHILS # (AUTO) 9.2 (2.1-6.9); NEUTROPHILS % 88.5 % (38.7-80.0); PLATELET COUNT 154 x10e3/uL (140-360); RED BLOOD COUNT 4.11 x10e6/uL (4.3-5.7); RED CELL DISTRIBUTION WIDTH 12.5 % (11.7-14.4)
[2018-09-10 03:50] LABS: ALANINE AMINOTRANSFERASE 539 IU/L (0-55); ALBUMIN 3.3 g/dL (3.5-5.0); ALBUMIN/GLOBULIN RATIO 1.2 (0.8-2.0); ALKALINE PHOSPHATASE 55 IU/L (40-150); ANION GAP 12.5 mmol/L (8-16); BLOOD UREA NITROGEN 21 mg/dL (7-26); BUN/CREATININE RATIO 24 (6-25); CALCIUM 9.3 mg/dL (8.4-10.2); CHLORIDE 95 mmol/L (98-107); CREATININE, SERUM 0.88 mg/dL (0.72-1.25); EST GLOMERULAR FILTRATION RATE > 60 ML/MIN (60-); GLUCOSE 132 mg/dL (74-118); POTASSIUM 4.5 mmol/L (3.5-5.1); SODIUM 144 mmol/L (136-145)
[2018-09-10 03:57] LABS: CARBON DIOXIDE 41 mmol/L (22-29)
[2018-09-10 04:36] LABS: ALBUMIN 3.3 g/dL (3.5-5.0); BILIRUBIN,DIRECT 0.4 mg/dL (0.0-0.5)
[2018-09-10 04:51] LABS: FERRITIN 1223.36 ng/mL (21.81-274.66)
[2018-09-10] MEDS: AMLODIPINE BESYLATE 10 MG TAB PO SCH (09:19)
[2018-09-10] MEDS: BUSPIRONE HCL 10 MG TABLET PO SCH ×2 (09:19→17:05)
[2018-09-10] MEDS: FAMOTIDINE 20 MG TAB PO SCH (09:19)
[2018-09-10] MEDS: METHYLPREDNISOLONE SOD SUCC 40 MG/ML VIAL 1ML IV SCH (09:19)
[2018-09-10] MEDS: FINASTERIDE 5 MG TAB PO SCH (09:20)
[2018-09-10] MEDS: SERTRALINE HCL 100 MG TAB PO SCH (09:20)
[2018-09-10] MEDS: CEFEPIME 2 GM/NS 0.9% 100 ML 100 ML IV SCH ×2 (09:23→21:16)
[2018-09-10] MEDS: AZITHROMYCIN 500MG/NS 250 ML 250 ML IV SCH (09:30)
[2018-09-10] MEDS: LORAZEPAM 0.5 MG TAB PO PRN ×2 (10:11→17:05)
--- NOTE | 2018-09-10 14:08 | Progress Note ---
DATE: Pulmonary Critical Care Progress Note SUBJECTIVE: The patient is less confused today. He has less dyspnea. He is not complaining of fevers. PHYSICAL EXAMINATION: VITAL SIGNS: The patient is afebrile. The blood pressure is 127/67 and the pulse is 84. Saturation is 98% on 4 L. HEENT: Shows no facial swelling or erythema. The oropharynx is normal. LYMPHATIC: Shows no submandibular, cervical or supraclavicular adenopathy. CARDIAC: Reveals a regular rate and rhythm with normal S1 and S2. There are no murmurs or rubs. LUNGS: Auscultation of the lungs reveals clear breath sounds bilaterally. There is no wheezing. ABDOMEN: Soft, nontender. There is no rebound or guarding. EXTREMITIES: Show no leg edema or calf tenderness. There is no cyanosis or clubbing. IMPRESSION: 1. Chronic obstructive pulmonary disease with acute exacerbation. 2. Metabolic encephalopathy. 3. Moderate protein-calorie malnutrition. 4. Active hepatitis C. PLAN: 1. Continue to taper steroids. 2. Nutritional evaluation. 3. Continue recommendations from Psychiatry. 4. Physical therapy. Troy Ribera MD [facility] /[id number]
[2018-09-10] MEDS: ENOXAPARIN SOD INJ 40 MG/0.4 ML SYR SC SCH (17:05)
[2018-09-10] MEDS ORDERED: SODIUM CHLORIDE 0.9% 250ML 250 ML ONE (21:15)
[2018-09-10] MEDS: TRAZODONE HCL 50 MG TAB PO PRN (21:16)
[2018-09-10] MEDS: MIRTAZAPINE 15 MG TAB PO SCH (21:16)
[2018-09-10] MEDS: DONEPEZIL HCL 5 MG TAB PO SCH (21:16)
[2018-09-11] MEDS: IPRATROPIUM BROMIDE 0.02% 2.5 ML NEB NEB SCH ×6 (03:05→23:02)
[2018-09-11] MEDS: ALBUTEROL SULF 0.083% NEB SOLN 3 ML NEB NEB SCH ×6 (03:05→23:02)
[2018-09-11 03:51] LABS: BASOPHILS % 0.2 % (0.0-1.0); EOSINOPHILS % 0.2 % (0.0-6.0); HEMATOCRIT 39.2 % (38.2-49.6); HEMOGLOBIN 11.9 g/dL (14.0-18.0); LYMPHOCYTES % 17.4 % (18.0-39.1); MEAN CORPUSCULAR HEMOGLOBIN 28.4 pg (28-32); MEAN CORPUSCULAR HGB CONC 30.4 g/dL (31-35); MEAN CORPUSCULAR VOLUME 93.6 fL (81-99); MONOCYTES # (AUTO) 1.1 (0.2-0.8); MONOCYTES % 9.9 % (4.4-11.3); NEUTROPHILS # (AUTO) 8.1 (2.1-6.9); NEUTROPHILS % 70.4 % (38.7-80.0); PLATELET COUNT 151 x10e3/uL (140-360); RED BLOOD COUNT 4.19 x10e6/uL (4.3-5.7); RED CELL DISTRIBUTION WIDTH 12.6 % (11.7-14.4)
[2018-09-11 04:19] LABS: ALANINE AMINOTRANSFERASE 485 IU/L (0-55); ALBUMIN 3.2 g/dL (3.5-5.0); ALBUMIN/GLOBULIN RATIO 1.2 (0.8-2.0); ALKALINE PHOSPHATASE 55 IU/L (40-150); ANION GAP 10.7 mmol/L (8-16); BLOOD UREA NITROGEN 26 mg/dL (7-26); BUN/CREATININE RATIO 35 (6-25); CARBON DIOXIDE 39 mmol/L (22-29); CHLORIDE 99 mmol/L (98-107); CREATININE, SERUM 0.74 mg/dL (0.72-1.25); EST GLOMERULAR FILTRATION RATE > 60 ML/MIN (60-); GLUCOSE 98 mg/dL (74-118); POTASSIUM 3.7 mmol/L (3.5-5.1); SODIUM 145 mmol/L (136-145)
[2018-09-11 04:59] VITALS: BP 158/92
[2018-09-11] MEDS ORDERED: METHYLPREDNISOLONE SOD SUCC 40 MG/ML VIAL 1ML IV SCH (06:00)
--- NOTE | 2018-09-11 08:03 | Diagnostic Imaging Report ---
Examination: Single AP view of the chest. COMPARISON: Portable chest 09/08/2018 INDICATION: Bronchitis, pulmonary edema IMPRESSION: 1. Lines and Tubes: None 2. Lungs are well-inflated. Stable relative lucency of the right lower lobe, which may reflect underlying bullous disease. Blunting of the right lateral costophrenic sulcus, likely reflecting small right pleural effusion. No consolidation. 3. Cardiomediastinal silhouette is normal. Pulmonary vasculature is normal. 4. No acute bony abnormalities. Signed by: Dr. Greg Stevenson M.D. on 09/11/2018 8:00 AM
[2018-09-11 08:23] VITALS: BP 136/82
[2018-09-11] MEDS: BUSPIRONE HCL 10 MG TABLET PO SCH ×2 (08:35→17:24)
[2018-09-11] MEDS: FAMOTIDINE 20 MG TAB PO SCH (08:35)
[2018-09-11] MEDS: CEFEPIME 2 GM/NS 0.9% 100 ML 100 ML IV SCH ×2 (08:36→21:07)
[2018-09-11] MEDS: SERTRALINE HCL 100 MG TAB PO SCH (08:36)
[2018-09-11] MEDS: FINASTERIDE 5 MG TAB PO SCH (08:36)
[2018-09-11] MEDS: AZITHROMYCIN 500MG/NS 250 ML 250 ML IV SCH (08:36)
[2018-09-11] MEDS: AMLODIPINE BESYLATE 10 MG TAB PO SCH (08:36)
[2018-09-11 12:21] VITALS: BP 142/69
[2018-09-11] MEDS: LORAZEPAM 0.5 MG TAB PO PRN ×2 (13:40→19:22)
--- NOTE | 2018-09-11 14:22 | Progress Note ---
DATE: 09/11/2018 SUBJECTIVE: The patient is still on oxygen. He has less dyspnea. He is eating more. He ambulates with assistance. PHYSICAL EXAMINATION: VITAL SIGNS: The patient is afebrile. The blood pressure is 142/70 and the saturation is 95% on 4 L. HEENT: Shows no facial swelling or erythema. The nasal mucosa is normal. LYMPHATIC: Shows no submandibular, cervical, or supraclavicular adenopathy. CARDIAC: Reveals a regular rate and rhythm with a normal S1 and S2. There are no murmurs or rubs. LUNGS: Auscultation of lungs reveals prolonged expiratory phase. There is no wheezing. ABDOMEN: Soft, nontender. There is no rebound or guarding. EXTREMITIES: Show no leg edema or calf tenderness. RADIOGRAPHIC DATA: Chest x-ray shows changes consistent with COPD. IMPRESSION: 1. Chronic obstructive pulmonary disease with acute exacerbation. 2. Metabolic encephalopathy. 3. Moderate protein-calorie malnutrition. 4. Hepatitis C. PLAN: 1. Continue to taper steroids. 2. Continue bronchodilators. 3. Continue oxygen. 4. Physical therapy. 5. Nutritional support. Troy Ribera MD [facility] /[id number]
[2018-09-11 17:14] VITALS: BP 154/78
[2018-09-11] MEDS: ENOXAPARIN SOD INJ 40 MG/0.4 ML SYR SC SCH (17:24)
--- NOTE | 2018-09-11 18:54 | Diagnostic Imaging Report ---
EXAM: Complete Abdominal Ultrasound INDICATION: ^elevated LFT's, hx Hep C COMPARISON: None. TECHNIQUE: Transverse and longitudinal images of the upper abdomen were obtained. FINDINGS: Liver: Size: 14.9 cm in the right midclavicular line, normal Appearance: Normal echogenicity, smooth contour Mass: No focal masses Spleen: Size: 8.8 cm in length, normal Echogenicity: Normal Mass: No focal masses Gallbladder: Not visualized (patient unsure whether he had a prior cholecystectomy).. Sonographic Boggs's Sign: Negative Bile Ducts: Intrahepatic Ducts: No dilatation Extrahepatic Ducts: Common bile duct measures 0.7 cm, upper limit of normal Pancreas: Obscured by overlying bowel gas. Kidneys: Length: Right 10.5 cm Left 8.0 cm Echogenicity: Normal Collecting System: No hydronephrosis Stone: 0.2 cm echogenic focus with twinkle artifact in the left renal mid aspect, likely representing a small nonobstructing calculus. Cyst/Mass: None. Vessels: Aorta: Visualized portions are normal Inferior Vena Cava: Visualized portions are normal Main Portal Vein: 1.2 cm, normal size with hepatopetal flow. Free Fluid: No ascites or pleural effusion IMPRESSION: 1. Normal hepatic size and contour. No focal lesions. 2. Gallbladder not visualized and likely absent. Common bile duct and the upper limit of normal, likely reflecting post cholecystectomy status. 3. 0.2 cm nonobstructing calculus in the left kidney. Signed by: Dr. Greg Stevenson M.D. on 09/11/2018 6:50 PM
[2018-09-11 19:44] VITALS: BP 152/86
[2018-09-11 20:04] VITALS: BP 152/86
[2018-09-11] MEDS: TRAZODONE HCL 50 MG TAB PO PRN (21:07)
[2018-09-11] MEDS: DONEPEZIL HCL 5 MG TAB PO SCH (21:07)
[2018-09-11] MEDS: MIRTAZAPINE 15 MG TAB PO SCH (21:07)
[2018-09-12 00:06] VITALS: BP 163/87
[2018-09-12] MEDS: IPRATROPIUM BROMIDE 0.02% 2.5 ML NEB NEB SCH ×3 (02:45→11:40)
[2018-09-12] MEDS: ALBUTEROL SULF 0.083% NEB SOLN 3 ML NEB NEB SCH ×3 (02:45→11:40)
[2018-09-12 03:19] LABS: BASOPHILS % 0.2 % (0.0-1.0); EOSINOPHILS # (AUTO) 0.1 (0.0-0.4); EOSINOPHILS % 0.9 % (0.0-6.0); HEMATOCRIT 38.1 % (38.2-49.6); HEMOGLOBIN 11.5 g/dL (14.0-18.0); LYMPHOCYTES # (AUTO) 2.5 (1.0-3.2); LYMPHOCYTES % 23.4 % (18.0-39.1); MEAN CORPUSCULAR HEMOGLOBIN 28.3 pg (28-32); MEAN CORPUSCULAR HGB CONC 30.2 g/dL (31-35); MEAN CORPUSCULAR VOLUME 93.8 fL (81-99); MONOCYTES # (AUTO) 0.9 (0.2-0.8); MONOCYTES % 8.7 % (4.4-11.3); PLATELET COUNT 138 x10e3/uL (140-360); RED BLOOD COUNT 4.06 x10e6/uL (4.3-5.7); RED CELL DISTRIBUTION WIDTH 12.5 % (11.7-14.4)
[2018-09-12 03:33] LABS: ANION GAP 9.5 mmol/L (8-16); BLOOD UREA NITROGEN 21 mg/dL (7-26); BUN/CREATININE RATIO 30 (6-25); CALCIUM 8.8 mg/dL (8.4-10.2); CARBON DIOXIDE 38 mmol/L (22-29); CHLORIDE 100 mmol/L (98-107); CREATININE, SERUM 0.71 mg/dL (0.72-1.25); EST GLOMERULAR FILTRATION RATE > 60 ML/MIN (60-); GLUCOSE 87 mg/dL (74-118); POTASSIUM 3.5 mmol/L (3.5-5.1); SODIUM 144 mmol/L (136-145)
[2018-09-12 04:56] VITALS: BP 160/78
[2018-09-12] MEDS ORDERED: METHYLPREDNISOLONE SOD SUCC 40 MG/ML VIAL 1ML IV SCH (06:00)
[2018-09-12] MEDS: FAMOTIDINE 20 MG TAB PO SCH (08:07)
[2018-09-12] MEDS: BUSPIRONE HCL 10 MG TABLET PO SCH (08:07)
[2018-09-12] MEDS: SERTRALINE HCL 100 MG TAB PO SCH (08:08)
[2018-09-12] MEDS: FINASTERIDE 5 MG TAB PO SCH (08:08)
[2018-09-12] MEDS: AMLODIPINE BESYLATE 10 MG TAB PO SCH (08:08)
[2018-09-12 08:11] VITALS: BP 137/78
[2018-09-12] MEDS: CEFEPIME 2 GM/NS 0.9% 100 ML 100 ML IV SCH (08:28)
--- NOTE | 2018-09-12 08:50 | Progress Note ---
DATE: SUBJECTIVE: The patient reports dyspnea. He still has some confusion. He has no chest pain. He has no cough or phlegm production. PHYSICAL EXAMINATION: VITAL SIGNS: The blood pressure is 137/78 and the saturation is 99% on 4 L and the pulse is 93. Respiratory rate is 18. HEENT: Shows no facial swelling or erythema. The nasal mucosa is normal. The oropharynx is normal. LYMPHATIC: Shows no submandibular, cervical, or supraclavicular adenopathy. CARDIAC: Reveals regular rate and rhythm with a normal S1, S2. There are no murmurs or rubs. LUNGS: Auscultation of lungs shows clear breath sounds bilaterally. There is no wheezing. ABDOMEN: Soft, nontender. There is no rebound or guarding. EXTREMITIES: There is no leg edema or calf tenderness. There is no cyanosis or clubbing. SKIN: Shows no rashes. IMPRESSION: 1. Chronic obstructive pulmonary disease with acute exacerbation. 2. Metabolic encephalopathy. 3. Moderate protein-calorie malnutrition. 4. Hepatitis C. PLAN: 1. Continue to taper steroids. 2. Bronchodilators. 3. Oxygen. 4. Physical therapy. 5. Disposition. Troy Ribera MD [facility]L /[id number]
[2018-09-12] MEDS: AZITHROMYCIN 500MG/NS 250 ML 250 ML IV SCH (09:05)
[2018-09-12 09:09] VITALS: BP 137/78
[2018-09-12] MEDS ORDERED: ZITHROMAX500 MG PO (09:11)
[2018-09-12] MEDS ORDERED: CEFEPIME-D1 GM/50 ML IVP (09:11)
[2018-09-12] MEDS ORDERED: MIRTAZAPINE15 MG PO (09:13)
[2018-09-12] MEDS ORDERED: PREDNISONE 10 MG TAB PO SCH (09:30)
[2018-09-12] MEDS: LORAZEPAM 0.5 MG TAB PO PRN (11:26)
[2018-09-12 12:12] VITALS: BP 139/74
--- NOTE | 2018-09-13 00:19 | Discharge Summary ---
ADMISSION DIAGNOSES: [id number] hypoxic and hypercapnic respiratory failure, acute exacerbation of chronic obstructive pulmonary disease, urinary tract infection, AMS due to opioid, hypertension, recurrent major depression, anxiety generalized, transaminitis. DISCHARGE DIAGNOSES: [id number] hypoxic and hypercapnic respiratory failure, acute exacerbation of chronic obstructive pulmonary disease, urinary tract infection, AMS due to opioid, hypertension, recurrent major depression, anxiety generalized, transaminitis, unspecified dementia without behavioral disturbances. HISTORY: The patient has a history of chronic obstructive pulmonary disease, hypertension, hep C, which was treated with interferon about five years ago. Narcotic abuse. SURGICAL HISTORY: Cholecystectomy and rotator cuff repair. FAMILY HISTORY: Noncontributory. SOCIAL HISTORY: The patient used illicit drugs and tobacco in the past. HOSPITAL COURSE: A 67-year-old male with advanced COPD, sent from the [facility] due to decreased level of consciousness after receiving [place] and Ativan, that also resulted in hypercapnic and respiratory distress. He was receiving [place] and Ativan. Narcan was given with improvement in mental status. The patient required BiPAP on admission. He was started on nebs and IV Solu-Medrol as well as IV Zithromax for his COPD. Echo showed an EF of 60%. EKG showed sinus tachycardia. Chest x-ray showed hyperinflation compatible with emphysema. Ultrasound of the abdomen showed normal hepatic size and contour, no focal lesion, 0.2 cm nonobstructing calculus in the left kidney. The patient was taken off BiPAP and remains stable on 4 L nasal cannula. Blood cultures were negative. Urine culture negative. His hep C antibody came back over 11. The other hepatitis panel was negative. On admission, his carbon dioxide was 46. On discharge, the carbon dioxide was 38. Psych was consulted due to the anxiety, depression, and narcotic use. They started the patient on Remeron at bedtime and changed the trazodone from 150 to just 50. He will continue Aricept, Zoloft, and BuSpar. The patient is doing much better and is ready for discharge back to the facility. He was weaned off IV steroids and is on nasal cannula again. Vital signs stable. The patient afebrile. The patient understands discharge instructions and agrees to plan. He will be discharged back to the [facility]. Dictated by Agueda Gómez NP MD [facility] /[id number]
[2018-09-13 11:18] LABS: FOLATE > 19.9 ng/mL (7.0-15.4)
== END 2018-09-12 13:08 | DRG 189 ==
LOC: ER 06:25 → ERHOLD 08:47 → ICU 10:21 → MED/SURG 09-09 14:07
PROVIDERS: ADMIT Internal Medicine; ATTEND Internal Medicine
DX: J96.20 Acute and chronic respiratory failure, unspecified whether with hypoxia or hypercapnia (principal); G93.41 Metabolic encephalopathy; J44.1 Chronic obstructive pulmonary disease with (acute) exacerbation; N39.0 Urinary tract infection, site not specified; F33.1 Major depressive disorder, recurrent, moderate; E44.0 Moderate protein-calorie malnutrition; B19.20 Unspecified viral hepatitis C without hepatic coma; R06.02 Shortness of breath; J96.22 Acute and chronic respiratory failure with hypercapnia; T40.2X1A Poisoning by other opioids, accidental (unintentional), initial encounter; F32.9 Major depressive disorder, single episode, unspecified; F41.1 Generalized anxiety disorder; F03.90 Unspecified dementia, unspecified severity, without behavioral disturbance, psychotic disturbance, mood disturbance, and anxiety; G89.29 Other chronic pain; M54.9 Dorsalgia, unspecified; B18.2 Chronic viral hepatitis C
CPT/HCPCS: 36415; 36600; 71045; 76700; 80048; 80053; 80076; 81001; 82105; 82550; 82553; 82607; 82728; 82746; 82805; 83036; 83540; 83605; 83690; 83735; 83880; 84466; 84484; 85025; 85610; 87040; 87086; 87522; 93005; 93306; 94640; 94660; 97139; 99285; J0456; J0692; J1650; J2920; J2930; J3370; J7030; J7050; J7512

== ENCOUNTER 2018-09-25 21:15 | Emergency (ER) | payer MEDICARE ==
[~2018-09-25] VITALS: Ht 165.1 cm; Wt 54.4 kg
[~2018-09-25 21:15] MED LIST: AMLODIPINE BESY10 MG PO; BUSPIRONE HCL7.5 MG PO; CEFEPIME-D1 GM/50 ML IVP; DONEPEZIL HCL5 MG PO; FAMOTIDINE20 MG PO; FINASTERIDE5 MG PO; HYDROCODON-ACE1 EAC9 PO; LORAZEPAM1 MG PO; LOSARTAN POTASS50 MG PO; MECLIZINE HCL12.5 MG PO; MIRTAZAPINE15 MG PO; ONDANSETRON HCL8 MG SL; PREDNISONE5 MG PO; SERTRALINE HCL100 MG PO; TRAZODONE HCL150 MG PO; ZITHROMAX500 MG PO
[2018-09-25] MEDS ORDERED: ALBUTEROL/IPRATROPIUM 3 ML NEB NEB ONE (22:00)
--- NOTE | 2018-09-25 23:00 | Diagnostic Imaging Report ---
SHOULDER LEFT COMPLETE - 2 views HISTORY: Pain COMPARISON: None available. FINDINGS: See impression. IMPRESSION: Adequate internal and external rotation. No evidence of acute fracture or dislocation of the left shoulder. Signed by: Dr. Deshaun Zepeda MD on 09/25/2018 10:57 PM
--- NOTE | 2018-09-25 23:02 | Diagnostic Imaging Report ---
ELBOW LEFT COMPLETE - 3 views HISTORY: Pain COMPARISON: None available. FINDINGS: Bones: No acute displaced fracture. Osseous alignment is within normal limits. Joints: The joint spaces are well-maintained. Soft tissues: The soft tissues appear unremarkable. IMPRESSION: No acute radiographic abnormality. Signed by: Dr. Deshaun Zepeda MD on 09/25/2018 10:58 PM
--- NOTE | 2018-09-25 23:13 | Diagnostic Imaging Report ---
Examination: CT head without contrast Clinical Indication: Fall with head injury. Technique: Transaxial noncontrast images from the skull base through the vertex were obtained. Sagittal and coronal reformatted images were done. Dose modulation, iterative reconstruction, and/or weight based adjustment of the mA/kV was utilized to reduce the radiation dose to as low as reasonably achievable. Comparison: 03/03/17. Findings: Scalp: No abnormalities. Bones: Intact. No fractures. No blastic or lytic lesions. Brain sulci: Mild volume loss for patient's age. Ventricles: No hydrocephalus. Extra-axial space: No abnormalities. Parenchyma: There are confluent areas of low-attenuation within subcortical and periventricular white matter, nonspecific, but could represent microvascular ischemic disease. Chronic lacunar infarcts are demonstrated in the right subinsular region and left caudate body. No masses, hemorrhage, or acute or chronic cortical based vascular insults. Suprasellar region: No abnormalities. Craniocervical junction: The foramen magnum is patent. No Chiari one malformation. Incidental findings: Atherosclerotic calcification of the cavernous and supraclinoid internal carotid arteries. Impression: 1. No acute intracranial finding. No change from 03/03/2017. 2. Mild chronic microvascular ischemic change. Chronic lacunar infarcts, as above. Signed by: Dr. Chelo Wilkerson M.D. on 09/25/2018 11:10 PM
--- NOTE | 2018-09-25 23:13 | Diagnostic Imaging Report ---
EXAM: CT Chest WITHOUT contrast INDICATION: ^s/p fall ^[id number] ^[id number] ^Y COMPARISON: Chest x-ray dated 09/11/2018 TECHNIQUE: Chest was scanned utilizing a multidetector helical scanner from the lung apex through the level of the adrenal glands without administration of IV contrast. Absence of intravenous contrast decreases sensitivity for detection of lymphadenopathy and vascular pathology. Coronal and sagittal reformations were obtained. Routine protocol was performed. IV CONTRAST: None COMPLICATIONS: None RADIATION DOSE: Total DLP: 390.56 mGy*cm Estimated effective dose: (DLP x 0.014 x size factor) mSv CTDIvol has been reviewed. It is below the limits set by the Radiation Protocol Committee (RPC). FINDINGS: LINES/ TUBES: None. LUNGS AND AIRWAYS: Emphysematous changes of the lungs. Multifocal bilateral scarring. Posterior right lower lobe consolidation (series 3, image 75), likely atelectasis. Airways are normal. PLEURA: The pleural spaces are clear. HEART AND MEDIASTINUM: The thyroid gland is normal. No mediastinal, hilar or axillary lymphadenopathy. The heart is normal in size.. There is no pericardial effusion. Main pulmonary arteries mildly dilated, measuring 3.2 cm. Atherosclerotic disease of coronary arteries. Ascending thoracic aorta measures 3.7 cm. UPPER ABDOMEN: Subcentimeter left renal superior pole nonobstructive calculus. Otherwise, unremarkable. BONES: Degenerative changes of thoracic spine. SOFT TISSUES: Unremarkable. IMPRESSION: No rib fractures or definite evidence of traumatic injury in the chest. Chronic lung findings, marked by emphysematous changes and scarring. Focal posterior right lower lobe consolidation, likely atelectasis. Developing pneumonia cannot be entirely excluded in the appropriate clinical context. Signed by: Dr. Deshaun Zepeda MD on 09/25/2018 11:10 PM
--- NOTE | 2018-09-25 23:23 | Diagnostic Imaging Report ---
Examination: CT CERVICAL SPINE WO CONTRAST HISTORY:Neck injury after fall. COMPARISON:03/03/2017. TECHNIQUE: Multidetector helical axial images were obtained without contrast from the foramen magnum to T1. Coronal and sagittal reformatted images were done. Bone and soft tissue windows were evaluated. Dose modulation, iterative reconstruction, and/or weight based adjustment of the mA/kV was utilized to reduce the radiation dose to as low as reasonably achievable. FINDINGS: Alignment:Grade I anterolisthesis of C2 on C3. Vertebrae: Normal height and density. No acute fracture, infection or neoplasm. Disc space heights: Severe narrowing from C3 through C6. Caliber of spinal canal: Developmentally normal. Posterior fossa and craniocervical junction: Foramen magnum patent. No Chiari 1 malformation. Soft tissues: Atherosclerotic calcification of the right greater than left carotid bifurcation and proximal internal carotid arteries. Degenerative changes: Diffuse disc osteophyte complexes from C3-C4 through C5-C6 with moderate bilateral neural foraminal narrowing at C3-C4, severe bilaterally at C4-C5, severe right and moderate on the left. No significant canal stenosis. Visualized lung apices: No abnormalities. IMPRESSION: 1. No acute abnormalities when compared to prior cervical spine dated 03/03/2017. 2. Unchanged degenerative changes, as above. Unchanged grade I anterolisthesis of C2 on C3. Signed by: Dr. Chelo Wiklerson M.D. on 09/25/2018 11:20 PM
--- NOTE | 2018-09-25 23:25 | NUR ---
DR. GOVEA AT BEDSIDE UPDATING PATIENT AND FAMILY ON PLAN OF CARE AND INTENT TO RETURN PATIENT TO [facility].
--- NOTE | 2018-09-25 23:30 | NUR ---
[facility] CALLED TO INITIATE TRANSFER BACK TO [facility].
[2018-09-26 00:57] VITALS: BP 124/72
== END 2018-09-26 01:06 | disposition home or self-care (01) ==
LOC: ER 21:15
DX: S00.83XA Contusion of other part of head, initial encounter (principal); S00.81XA Abrasion of other part of head, initial encounter; S40.012A Contusion of left shoulder, initial encounter; S50.02XA Contusion of left elbow, initial encounter; W01.0XXA Fall on same level from slipping, tripping and stumbling without subsequent striking against object, initial encounter; Y92.128 Other place in nursing home as the place of occurrence of the external cause; F03.90 Unspecified dementia, unspecified severity, without behavioral disturbance, psychotic disturbance, mood disturbance, and anxiety; I10 Essential (primary) hypertension; B19.20 Unspecified viral hepatitis C without hepatic coma; J44.9 Chronic obstructive pulmonary disease, unspecified; F41.9 Anxiety disorder, unspecified; F32.9 Major depressive disorder, single episode, unspecified
CPT/HCPCS: 70450; 71250; 72125; 94640; 99284